=== PATIENT | female | born 1950 | race Caucasian/White ===

== ENCOUNTER 2020-04-28 20:42 | Inpatient (IN) | payer MEDICARE, SELFPAY ==
--- NOTE | 2020-04-28 20:48 | ECG_ITS ---
Test Reason : WEAKNESS Blood Pressure : / mmHG Vent. Rate : 078 BPM Atrial Rate : 078 BPM P-R Int : 188 ms QRS Dur : 100 ms QT Int : 412 ms P-R-T Axes : 057 021 054 degrees QTc Int : 469 ms Normal sinus rhythm Intra-ventricular conduction delay Nonspecific ST abnormality Abnormal ECG When compared with ECG of 06-DEC-2014 09:25, No significant change was found Referred By: Ritu Scott Electronically Signed By:KENIA FRANKLIN MD
--- NOTE | 2020-04-28 20:48 | CT_ITS ---
EXAMINATION: CTA NECK WITH CONTRAST (STROKE) CTA BRAIN WITH CONTRAST (STROKE) CLINICAL INFORMATION: Worsening intermittent left hand weakness. COMPARISON: CT head performed earlier same date TECHNIQUE: CTA of the head and neck was performed in the axial plane from the mediastinum to the skull vertex using 70 mL Omnipaque 350 intravenous contrast. Additional reformatted multiplanar images including maximum intensity projection MIP images are generated on the CT workstation. This CT examination was performed using dose optimization techniques as appropriate, variously including the following: *Automated exposure control *Adjustment of mA and/or kV according to patient size (this includes techniques or standardized protocols for targeted exams where dose is matched to indication/reason for exam; i.e. extremities or head) *Use of iterative reconstruction technique DLP: 70c mGy-cm FINDINGS: SOFT TISSUES AND LUNG APICES: No overt abnormality is appreciated. CTA NECK: The aortic arch has a classic configuration and the major arch vessel origins are non-stenotic. The vertebral arteries are co-dominant and both vertebral origins are widely patent. Both common carotid arteries are normal in course and caliber. Both internal carotid arteries demonstrate mild atherosclerotic plaque, worse on the right, without hemodynamically significant stenosis. CTA HEAD: There is normal opacification of the major intracranial vessels. No acute proximal large vessel occlusion, focal flow-limiting stenosis, or saccular intracranial aneurysm is identified. The basilar artery opacifies but is diminutive. Right P1 segment is absent, and the left P1 segment is diminutive. origins of the bilateral posterior cerebral arteries. No abnormal parenchymal enhancement or regional oligemia is visualized. HEAD (delayed): No intracranial mass, intercerebral edema, hemorrhage, or midline shift is evident. The ventricles and sulci are stable in size and configuration. No extra-axial collections are appreciated. [id number] chronic white matter small vessel ischemic changes. No pathologic intracranial enhancement. The paranasal sinuses are well-aerated and clear. CT/CT angio head neck stroke IMPRESSION: CTA NECK: Mild atherosclerotic disease of the bilateral carotid bifurcations without hemodynamically significant stenosis or dissection. CTA HEAD: No hemodynamically significant stenosis or large vessel occlusion. Developmentally diminutive posterior circulation with origins of the bilateral posterior cerebral arteries. This critical result was discussed with Ritu Scott M.D. at 9:30 PM on 04/28/2020c and it was ascertained that the content and urgency of the report was understood at the time of direct communication.
--- NOTE | 2020-04-28 20:48 | CT_ITS ---
EXAMINATION: CT HEAD WITHOUT CONTRAST (STROKE PROTOCOL) CLINICAL INFORMATION: Stroke protocol. COMPARISON: CT head 12/06/2014 TECHNIQUE: Contiguous axial imaging was performed from the skull base to vertex without intravenous administration of contrast. This CT examination was performed using dose optimization techniques as appropriate, variously including the following: *Automated exposure control *Adjustment of mA and/or kV according to patient size (this includes techniques or standardized protocols for targeted exams where dose is matched to indication/reason for exam; i.e. extremities or head) *Use of iterative reconstruction technique DLP: 646 mGy-cm FINDINGS: There is no intracranial hemorrhage, hematoma, or extra-axial fluid collection. The ventricles are normal in size. There is no hydrocephalus, edema, or mass effect. The guillen-white matter differentiation appears symmetric. There is no acute infarct or mass lesion. The visualized sinuses and middle ears and mastoid air cells show no significant mucosal thickening. There are no air-fluid levels. CT/CT head for stroke IMPRESSION: No acute intracranial pathology. This critical result was discussed with Yanick JUNIOR on 04/28/2020, 9:08 PM. It was ascertained that the content and urgency of the report was understood at the time of direct communication.
[2020-04-28 21:00] LABS: ~PT, ~INR - Anti Coag Clinic 4.9 (0.9-1.1)
[2020-04-28 21:00] LABS: Glucose, Whole Blood 100 mg/dL (60-115)
[2020-04-28] MEDS: iohexoL 350 MG/ML 100 ML INFUS..BTL IV (21:08)
[2020-04-28 21:14] LABS: MANUAL DIFF FLAG NO
[2020-04-28 21:16] LABS: Basophils Percent Auto 0.8 % (0-2); Hematocrit 39.2 % (37-47); Hemoglobin 12.6 g/dl (12.0-16.0); Imm Gran Abs Auto 0.01 X10*3/uL (0.00-0.03); Imm Gran Pct Auto 0.2 % (0.0-0.4); Lymphocytes Percent Auto 37.7 % (20-40); Mean Corpuscular HGB Conc 32.1 g/dl (31.0-35.0); Mean Corpuscular Hemoglobin 28.4 pg (27.0-33.0); Mean Corpuscular Volume 88.5 fL (80-98); Mean Platelet Volume 10.8 fL (9.4-12.3); Monocytes Absolute Auto 0.4 X10*3/uL (0.1-1.2); Monocytes Percent Auto 7.9 % (2-11); Neutrophils Absolute Auto 2.8 X10*3/uL (2.0-8.3); Neutrophils Percent Auto 53.4 % (45-73); Platelet Count 241 X10*3/uL (160-400); Red Blood Count 4.43 X10*6/uL (4.20-5.50); Red Cell Distribution Width 14.4 % (11.0-16.0); White Blood Count 5.3 X10*3/uL (4.8-10.8)
[2020-04-28 21:19] VITALS: BP 170/55; PULSE 86; RESP 16; TEMP 35.6; O2SAT 100; BMI 33.3
[2020-04-28 21:23] LABS: INTERNATIONAL NORM RATIO 4.2 (0.9-1.1); Prothrombin Time 50.7 SEC (10.8-13.0)
[2020-04-28 21:29] LABS: Stroke Lab Use COMPLETE
--- NOTE | 2020-04-28 21:32 | PC.NURSE ---
PATIENT REPORT ON COUMADIN, DR LANZA AWARE. REPORTS BILATERAL LOWER LEG EDEMA 1+, PATIENT REPORTS IT IS AT HER BASELINE.
[2020-04-28 21:42] LABS: Anion Gap 12 (12-20); Blood Urea Nitrogen 21 mg/dL (9-16); Calcium 8.7 mg/dL (8.4-10.2); Carbon Dioxide 27 mmol/L (22-29); Chloride 102 mmol/L (96-108); Creatinine Clr Calc Pharmacy 44.6; Estimated Glomerular Filt Rate 38; Glucose Random 95 mg/dL (60-115); Potassium 3.3 mmol/l (3.3-5.1); Sodium 138 mmol/L (135-145)
[2020-04-28 21:48] LABS: Troponin-I High Sensitivity 6.5 ng/L (<3.5-17.0)
--- NOTE | 2020-04-28 21:52 | ED.NEUROSD ---
HPI - Neuro Symptoms/Deficit General Chief Complaint: Stroke Stated Complaint: ?stroke Time Seen by Provider: 04/28/20 20:47 Source: patient, family and EMS Mode of arrival: EMS Limitations: no limitations History of Present Illness HPI Narrative: Patient comes to emergency room complaining of multiple episodes of neurological deficits including unable to move her right arm, slurry speech. Patient states she feels fine and wants to go home. I spoke with the patient's daughter, the daughter states that the patient has had TIAs in the past, over the last month and a half the patient has had multiple episodes of TIA where she loses strength in the right side of her body or has slurry speech or small episodes of altered mental status. This morning, around 8 in the morning patient could not move her right arm, she had to grab her right arm with her left hand to make it move. Patient also had severe slurry speech. The family reports that this has been intermittent since 08:00 a.m. at this time, patient states that she is able to move her right arm, seems unconcerned. The family states that all of the symptoms have gradually been getting worse over the last 6 weeks, patient is known to have carotid artery stenosis, the patient states she sees Dr. Fulton, the last time she was told that her stenosis is at 65%. patient is on Coumadin for previous TIAs and also for the carotid artery stenosis. Related Data Allergies Allergy/AdvReac Type Severity Reaction Status Date / Time No Known Allergies Allergy Verified 04/28/20 21:23 [No Known Allergies*] Review of Systems Review of Systems: Constitutional : No Weight loss, No Fever, No Chills, No Night Sweats, No Fatigue, No Malaise ENT/Mouth : No Hearing loss, No Ear Pain, No Nasal Congestion, No Sinus Pain, No Hoarseness, No sore throat, No Rhinorrhea, No Swallowing Difficulty Eyes: No Eye Pain, No Swelling, No Redness, No Foreign Body, No Discharge, No Vision Changes Cardiovascular : No Chest Pain, No SOB, No Dyspnea on Exertion, No Orthopnea, No Edema, No Palpitations Respiratory : No Cough, No Sputum, No Wheezing, No Smoke Exposure, No Dyspnea Gastrointestinal : No Nausea, No Vomiting, No Diarrhea, No Constipation, No abdominal Pain, No Hematochezia, No Melena Genitourinary : no irregular bleeding, No Dysuria, No Urinary Frequency, No Hematuria, No Urinary Incontinence, No Urgency, No Flank Pain, No Urinary Flow Changes, No Hesitancy Musculoskeletal : No joint pain, No Myalgias, No Joint Swelling Skin : No Skin Lesions, No rash Neuro : Intermittent episodes of unable to move the right arm, losing complete strength in the right upper arm, intermittent episodes of unsteady gait, continue see tripping with no falling. Mouth drooping Psych : No Anxiety/Panic, No Depression, No SI/HI/AH/VH, No Social Issues, Heme/Lymph: No Bruising, No Bleeding,No Lymphadenopathy Endocrine : No Polyuria, No Polydipsia, No Temperature Intolerance [facility] Past Medical History Medical History (Updated 04/28/20 @ 22:08 by Ritu Scott MD) History of TIAs Hypothyroidism Surgical History (Updated 04/28/20 @ 21:22 by Nazia Raphael) Hx of bladder repair surgery Social History Social History Alcohol intake: never Smoking Status: Never smoker Use of substances other than those prescribed or required for medical reasons: No Advance Directives: No Advance Directives Information Provided: Yes Physical Exam Vital Signs: Vital Signs: Last Vital Signs Temp 97.7 F 04/28/20 23:17 Pulse 74 04/28/20 23:17 Resp 14 04/28/20 23:17 BP 163/70 H 04/28/20 23:17 Pulse Ox 98 04/28/20 23:17 Body Mass Index 33.3 Appearance: Alert. Oriented X3. No acute distress. Eyes: Pupils equal, round and reactive to light. ENT: Pharynx normal. no mouth drooping Neck: Normal inspection. Neck supple. No lymph nodes noted. No crepitus CVS: Normal heart rate and rhythm. Pulses normal. Normal S1 and S2 Respiratory: No respiratory distress. Breath sounds normal. No Wheezing. No rales Abdomen: Soft and nontender. No rigidity. No distention. good BS x4 Skin: Skin warm and dry. Normal skin color. Normal skin turgor. Extremities: No lower extremity edema. No lower extremity edema. No Lacerations. No Rash Neuro: Oriented X 3. No motor deficit. No sensory deficit. Moving all extermities. No slurred speech. patient has normal strength 5/5 in upper and lower extremities, no pronator drift, no mouth drooping, cranial nerves 2-12 intact Course Course Course Narrative: patient's CT and CTA of head and neck do not show any acute stroke or large vessel occlusion. Patient is currently on Coumadin, INR is 4.9 patient would not be a candidate for tPA. At this time, patient is asymptomatic. I discussed the patient with our hospitalist, patient will be admitted for TIAs MDM - Neuro Symptoms/Deficit Lab Data Result diagrams: 04/28/20 21:08 04/28/20 21:08 Labs: Lab Results 04/28/20 04/28/20 04/28/20 Range/Units 20:54 20:56 21:08 WBC 5.3 (4.8-10.8) X10*3/uL RBC 4.43 (4.20-5.50) X10*6/uL Hgb 12.6 (12.0-16.0) g/dl Hct 39.2 (37-47) % MCV 88.5 (80-98) fL MCH 28.4 (27.0-33.0) pg MCHC 32.1 (31.0-35.0) g/dl RDW 14.4 (11.0-16.0) % Plt Count 241 (160-400) X10*3/uL MPV 10.8 (9.4-12.3) fL Immature Gran % (Auto) 0.2 (0.0-0.4) % Neut % (Auto) 53.4 (45-73) % Lymph % (Auto) 37.7 (20-40) % [place] % (Auto) 7.9 (2-11) % Eos % (Auto) 0.0 (0-4) % Baso % (Auto) 0.8 (0-2) % Lymph # (Auto) 2.0 (1.2-4.9) X10*3/uL [place] # (Auto) 0.4 (0.1-1.2) X10*3/uL Eos # (Auto) 0.0 (0.0-0.4) X10*3/uL Baso # (Auto) 0.0 (0.0-0.2) X10*3/uL Abs Immat Gran (auto) 0.01 (0.00-0.03) X10*3/uL Absolute Neuts (auto) 2.8 (2.0-8.3) X10*3/uL Absolute Nucleated RBC 0.000 (0.0-0.012) X10*3/uL Nucleated RBC % (auto) 0.0 (0.0-0.2) /100WBC PT (10.8-13.0) SEC Whole Blood PT 59.0 H (11.1-13.5) sec INR (0.9-1.1) Whole Blood INR 4.9 H (0.9-1.1) APTT (24.1-38.0) SEC Sodium (135-145) mmol/L Potassium (3.3-5.1) mmol/l Chloride (96-108) mmol/L Carbon Dioxide (22-29) mmol/L Anion Gap (12-20) BUN (9-16) mg/dL Creatinine (0.5-1.4) mg/dL Estim Creat Clear Calc Estimated GFR POC Glucose 100 (60-115) mg/dL Random Glucose (60-115) mg/dL Calcium (8.4-10.2) mg/dL Total Creatine Kinase (26-140) U/L Troponin I High Sens (<3.5-17.0) ng/L Coronavirus (PCR) (Negative) 04/28/20 04/28/20 04/28/20 Range/Units 21:08 21:08 21:08 WBC (4.8-10.8) X10*3/uL RBC (4.20-5.50) X10*6/uL Hgb (12.0-16.0) g/dl Hct (37-47) % MCV (80-98) fL MCH (27.0-33.0) pg MCHC (31.0-35.0) g/dl RDW (11.0-16.0) % Plt Count (160-400) X10*3/uL MPV (9.4-12.3) fL Immature Gran % (Auto) (0.0-0.4) % Neut % (Auto) (45-73) % Lymph % (Auto) (20-40) % [place] % (Auto) (2-11) % Eos % (Auto) (0-4) % Baso % (Auto) (0-2) % Lymph # (Auto) (1.2-4.9) X10*3/uL [place] # (Auto) (0.1-1.2) X10*3/uL Eos # (Auto) (0.0-0.4) X10*3/uL Baso # (Auto) (0.0-0.2) X10*3/uL Abs Immat Gran (auto) (0.00-0.03) X10*3/uL Absolute Neuts (auto) (2.0-8.3) X10*3/uL Absolute Nucleated RBC (0.0-0.012) X10*3/uL Nucleated RBC % (auto) (0.0-0.2) /100WBC PT 50.7 H (10.8-13.0) SEC Whole Blood PT (11.1-13.5) sec INR 4.2 H (0.9-1.1) Whole Blood INR (0.9-1.1) APTT 63.0 H* (24.1-38.0) SEC Sodium 138 (135-145) mmol/L Potassium 3.3 (3.3-5.1) mmol/l Chloride 102 (96-108) mmol/L Carbon Dioxide 27 (22-29) mmol/L Anion Gap 12 (12-20) BUN 21 H (9-16) mg/dL Creatinine 1.39 (0.5-1.4) mg/dL Estim Creat Clear Calc 44.6 Estimated GFR 38 POC Glucose (60-115) mg/dL Random Glucose 95 (60-115) mg/dL Calcium 8.7 (8.4-10.2) mg/dL Total Creatine Kinase 73 (26-140) U/L Troponin I High Sens 6.5 (<3.5-17.0) ng/L Coronavirus (PCR) (Negative) 04/28/20 Range/Units 21:58 WBC (4.8-10.8) X10*3/uL RBC (4.20-5.50) X10*6/uL Hgb (12.0-16.0) g/dl Hct (37-47) % MCV (80-98) fL MCH (27.0-33.0) pg MCHC (31.0-35.0) g/dl RDW (11.0-16.0) % Plt Count (160-400) X10*3/uL MPV (9.4-12.3) fL Immature Gran % (Auto) (0.0-0.4) % Neut % (Auto) (45-73) % Lymph % (Auto) (20-40) % [place] % (Auto) (2-11) % Eos % (Auto) (0-4) % Baso % (Auto) (0-2) % Lymph # (Auto) (1.2-4.9) X10*3/uL [place] # (Auto) (0.1-1.2) X10*3/uL Eos # (Auto) (0.0-0.4) X10*3/uL Baso # (Auto) (0.0-0.2) X10*3/uL Abs Immat Gran (auto) (0.00-0.03) X10*3/uL Absolute Neuts (auto) (2.0-8.3) X10*3/uL Absolute Nucleated RBC (0.0-0.012) X10*3/uL Nucleated RBC % (auto) (0.0-0.2) /100WBC PT (10.8-13.0) SEC Whole Blood PT (11.1-13.5) sec INR (0.9-1.1) Whole Blood INR (0.9-1.1) APTT (24.1-38.0) SEC Sodium (135-145) mmol/L Potassium (3.3-5.1) mmol/l Chloride (96-108) mmol/L Carbon Dioxide (22-29) mmol/L Anion Gap (12-20) BUN (9-16) mg/dL Creatinine (0.5-1.4) mg/dL Estim Creat Clear Calc Estimated GFR POC Glucose (60-115) mg/dL Random Glucose (60-115) mg/dL Calcium (8.4-10.2) mg/dL Total Creatine Kinase (26-140) U/L Troponin I High Sens (<3.5-17.0) ng/L Coronavirus (PCR) NEGATIVE (Negative) Imaging Data CT head and neck: Radiologist's impression: There is no intracranial hemorrhage, hematoma, or extra-axial fluid collection. The ventricles are normal in size. There is no hydrocephalus, edema, or mass effect. The guillen-white matter differentiation appears symmetric. There is no acute infarct or mass lesion. The visualized sinuses and middle ears and mastoid air cells show no significant mucosal thickening. There are no air-fluid levels. CT/CT head for stroke IMPRESSION: No acute intracranial pathology. CTA NECK: The aortic arch has a classic configuration and the major arch vessel origins are non-stenotic. The vertebral arteries are co-dominant and both vertebral origins are widely patent. Both common carotid arteries are normal in course and caliber. Both internal carotid arteries demonstrate mild atherosclerotic plaque, worse on the right, without hemodynamically significant stenosis. CTA HEAD: There is normal opacification of the major intracranial vessels. No acute proximal large vessel occlusion, focal flow-limiting stenosis, or saccular intracranial aneurysm is identified. The basilar artery opacifies but is diminutive. Right P1 segment is absent, and the left P1 segment is diminutive. origins of the bilateral posterior cerebral arteries. No abnormal parenchymal enhancement or regional oligemia is visualized. HEAD (delayed): No intracranial mass, intercerebral edema, hemorrhage, or midline shift is evident. The ventricles and sulci are stable in size and configuration. No extra-axial collections are appreciated. [id number] chronic white matter small vessel ischemic changes. No pathologic intracranial enhancement. The paranasal sinuses are well-aerated and clear. ECG Data Attestation: I personally reviewed and interpreted this ECG as follows: ( sinus rhythm, heart rate 78, no ST segment depressions or elevations, nonspecific T-wave abnormalities.) NIH Stroke Scale Level of Consciousness: Alert Level of Consciousness Questions: Answers both questions correctly Level of Consciousness Commands: Performs both tasks correctly Best Gaze: Normal Visual: No visual loss Facial Palsy: Normal Motor Arm (Right): Some effort against gravity Motor Arm (Left): No drift Motor Leg (Right): No drift Motor Leg (Left): No drift Limb Ataxia: Absent Sensory: Normal Best Language: No aphasia Dysarthia: Normal Extinction and Inattention: No abnormality Score: 2 Discharge Plan Discharge Clinical Impression: Transient cerebral ischemia Qualifiers: Transient cerebral ischemia type: other Qualified Code(s): G45.8 - Other transient cerebral ischemic attacks and related syndromes Patient Disposition: Admitted As Inpatient
[2020-04-28 22:00] VITALS: BP 153/64; PULSE 75; RESP 18; TEMP 36.6; O2SAT 98
--- NOTE | 2020-04-28 22:31 | PM.IMHP ---
History of Present Illness Date of Service: 04/28/20 Chief Complaint: arm weakness, TIA This is a 69-year-old female with past medical history of TIA as well as hyperactive bladder who presents to the hospital with complaints of right-sided weakness. Patient reports that the symptoms started around 8:00 a.m., and or intermittent with episodes happening 3-4 times during the day. She reports she had difficulty lifting her right arm, and holding her cane with the right arm. She also felt drooling on the right side. Had no lower extremity weakness. Patient reports that symptoms would last for couple hours start improving slowly but then returned again. Reports that her arm is stronger at this time. She denies any headache, change in vision, no chest pain or shortness of breath, no abdominal pain nausea or vomiting, no diarrhea or constipation. No urinary symptoms and no new lower extremity edema. She has chronic lower extremity edema associated with venous insufficiency. According to the daughter who give this report to the ED physician, her mother has been experiencing mini strokes for the past 6 weeks but has been refusing to come to the ED. On arrival to the ED hemodynamically stable with no significant abnormal vitals except for an elevated blood pressure 170/55 Labs are significant for INR 4.2, otherwise unremarkable. CT angiogram of the neck shows mild atherosclerotic disease of the bilateral carotid bifurcation without hemodynamically significant stenosis or dissection, CTA of the head shows no hemodynamically significant stenosis or large vessel occlusion. Past medical history: CVA, hyperactive bladder, hypothyroidism Surgical history: Bladder prolapse Family history of COPD, diabetes Social history: Comes from home, lives in a unit on the 1st floor with her daughter, denies tobacco alcohol or illicit drugs Review of Systems Review of Systems: Yes all other systems are reviewed and are negative [facility] Medical History (Updated 04/29/20 @ 04:48 by Jim Hayes MD) History of TIAs Hypothyroidism Surgical History (Updated 04/28/20 @ 21:22 by Nazia Raphael) Hx of bladder repair surgery Social History Household Members: None Housing: House Do you presently have visiting nurse or other home services: No Alcohol intake: never Smoking Status: Never smoker Use of substances other than those prescribed or required for medical reasons: No Advance Directives: No Advance Directives Information Provided: Yes Meds Allergies Allergy/AdvReac Type Severity Reaction Status Date / Time No Known Allergies Allergy Verified 04/28/20 21:23 [No Known Allergies*] Home Medications Medication Instructions Recorded Confirmed Type aspirin 81 mg PO DAILY 04/28/20 04/28/20 History furosemide 1 tab PO BID 04/28/20 04/28/20 History levothyroxine 1 tab PO DAILY 04/28/20 04/28/20 History trospium 1 cap PO QAM 04/28/20 04/28/20 History warfarin 1 - 2 tab PO DAILY 04/28/20 04/28/20 History Physical Exam Vital Signs and Narrative: Vital Signs: Last Vital Signs Temp 96.0 F L 04/28/20 21:19 Pulse 86 04/28/20 21:19 Resp 16 04/28/20 21:19 BP 170/55 H 04/28/20 21:19 Pulse Ox 100 04/28/20 21:19 Body Mass Index 33.3 Const: General: cooperative and no acute distress Orientation/consciousness: patient oriented x3 Eyes: Other: proptosis Pupils: Equal, round and reactive pupils present Resp: Effort & Inspection: normal respiratory effort and able to speak in complete sentences Auscultation: clear to auscultation bilaterally Cardio: Rate: regular rate Rhythm: regular rhythm GI: Palpation (GI): Soft to palpation Auscultation: normal bowel sounds Skin: General skin exam: no rashes or lesions noted Neuro: Other: 2/5 strength in the right upper extremity, 4/5 in the lower extremity, left extremity has strength 5/5, no facial drooping, asymmetry, General: patient oriented x3 Cranial nerves: Yes Equal, round and reactive pupils present Cognition (Neuro): normal cognition Extrem: General: Yes normal to inspection and Yes no pedal edema Results Labs CBC and Chem 7: 04/29/20 01:10 04/29/20 01:10 Labs: Laboratory Results - last 24 hr 04/28/20 04/28/20 04/28/20 20:54 20:56 21:08 MCV 88.5 MCH 28.4 MCHC 32.1 RDW 14.4 Plt Count 241 MPV 10.8 Immature Gran % (Auto) 0.2 Neut % (Auto) 53.4 Lymph % (Auto) 37.7 [place] % (Auto) 7.9 Eos % (Auto) 0.0 Baso % (Auto) 0.8 Lymph # (Auto) 2.0 [place] # (Auto) 0.4 Eos # (Auto) 0.0 Baso # (Auto) 0.0 Abs Immat Gran (auto) 0.01 Absolute Neuts (auto) 2.8 Absolute Nucleated RBC 0.000 Nucleated RBC % (auto) 0.0 PT Whole Blood PT 59.0 H INR Whole Blood INR 4.9 H APTT Anion Gap Estim Creat Clear Calc Estimated GFR POC Glucose 100 Random Glucose Calcium Total Creatine Kinase Troponin I High Sens 04/28/20 04/28/20 04/28/20 21:08 21:08 21:08 MCV MCH MCHC RDW Plt Count MPV Immature Gran % (Auto) Neut % (Auto) Lymph % (Auto) [place] % (Auto) Eos % (Auto) Baso % (Auto) Lymph # (Auto) [place] # (Auto) Eos # (Auto) Baso # (Auto) Abs Immat Gran (auto) Absolute Neuts (auto) Absolute Nucleated RBC Nucleated RBC % (auto) PT 50.7 H Whole Blood PT INR 4.2 H Whole Blood INR APTT 63.0 H* Anion Gap 12 Estim Creat Clear Calc 44.6 Estimated GFR 38 POC Glucose Random Glucose 95 Calcium 8.7 Total Creatine Kinase 73 Troponin I High Sens 6.5 Imaging Radiologist's Impressions: Impressions Head CT 04/28/20 20:48 IMPRESSION: No acute intracranial pathology. This critical result was discussed with Yanick JUNIOR on 04/28/2020, 9:08 PM. It was ascertained that the content and urgency of the report was understood at the time of direct communication. Head/Neck CTA 04/28/20 20:48 IMPRESSION: CTA NECK: Mild atherosclerotic disease of the bilateral carotid bifurcations without hemodynamically significant stenosis or dissection. CTA HEAD: No hemodynamically significant stenosis or large vessel occlusion. Developmentally diminutive posterior circulation with origins of the bilateral posterior cerebral arteries. This critical result was discussed with Ritu Scott M.D. at 9:30 PM on 04/28/2020c and it was ascertained that the content and urgency of the report was understood at the time of direct communication. Assessment and Plan (1) Hyperactivity of bladder: Status: Acute (2) Transient cerebral ischemia: Qualifiers: Transient cerebral ischemia type: other Qualified Code(s): G45.8 - Other transient cerebral ischemic attacks and related syndromes Status: Acute (3) Hypothyroidism: Status: Acute (4) Supratherapeutic INR: Status: Acute this is a 69-year-old female with past medical history of TIA who presents to the hospital with Stroke like symptoms. # CVA - has history of recurrent CVA, and reported 65% right carotid artery occlusion. - CT angiogram shows no evidence of large vessel occlusion, in the neck or the head - CT head negative - did not receive tPA due to elevated INR plan: - Will switch her simvastatin to high intensity statin , atorvastatin 80 mg - continue aspirin - stroke precaution, swallow precaution - brain MRI - neurology consult # supratherapeutic INR - INR 4.2, with no bleed - patient on INR for history of recurrent CVA - follow PT INR daily, resume when INR less than 3 # hypothyroidism - continue levothyroxine - patient has mild proptosis, will check for TSH level DVT prophylaxis: INR supratherapeutic, warfarin
--- NOTE | 2020-04-28 22:31 | PC.NURSE ---
patient a&ox3, no c/o pain or discomfort, surveillance monitor, [id number], vss, will continue to monitor
--- NOTE | 2020-04-28 22:35 | PC.NURSE ---
swallow eval completed, pt passed
[2020-04-28 22:58] LABS: SARS COV2 PCR INHOUSE NEGATIVE (Negative)
--- NOTE | 2020-04-28 23:00 | PC.NURSE ---
hospitalist at bedside for eval
[2020-04-28 23:17] VITALS: BP 163/70; PULSE 74; RESP 14; TEMP 36.5; O2SAT 98
--- NOTE | 2020-04-28 23:28 | PC.NURSE ---
Med Rec completed at bedside with pt. Awaiting transport to floor.
--- NOTE | 2020-04-28 23:33 | PC.NURSE ---
This RN calling IMC to give report, [facility] unable to take report at this time.
--- NOTE | 2020-04-28 23:42 | PC.NURSE ---
Report given to [facility] RN.
[2020-04-29 00:57] VITALS: BP 150/70; PULSE 76; RESP 20; TEMP 36.6; O2SAT 100
[2020-04-29 01:17] LABS: Basophils Absolute Auto 0.1 X10*3/uL (0.0-0.2); Basophils Percent Auto 0.8 % (0-2); Hematocrit 39.7 % (37-47); Hemoglobin 12.7 g/dl (12.0-16.0); Imm Gran Abs Auto 0.01 X10*3/uL (0.00-0.03); Imm Gran Pct Auto 0.2 % (0.0-0.4); Lymphocytes Absolute Auto 1.9 X10*3/uL (1.2-4.9); Lymphocytes Percent Auto 32.6 % (20-40); MANUAL DIFF FLAG NO; Mean Corpuscular Hemoglobin 28.4 pg (27.0-33.0); Mean Corpuscular Volume 88.8 fL (80-98); Mean Platelet Volume 10.3 fL (9.4-12.3); Monocytes Absolute Auto 0.5 X10*3/uL (0.1-1.2); Monocytes Percent Auto 8.1 % (2-11); Neutrophils Absolute Auto 3.5 X10*3/uL (2.0-8.3); Neutrophils Percent Auto 58.3 % (45-73); Platelet Count 215 X10*3/uL (160-400); Red Blood Count 4.47 X10*6/uL (4.20-5.50); Red Cell Distribution Width 14.5 % (11.0-16.0)
[2020-04-29 01:46] LABS: Anion Gap 11 (12-20); Blood Urea Nitrogen 19 mg/dL (9-16); Calcium 8.6 mg/dL (8.4-10.2); Carbon Dioxide 27 mmol/L (22-29); Chloride 103 mmol/L (96-108); Creatinine Clr Calc Pharmacy 50.5; Estimated Glomerular Filt Rate 43; Glucose Random 100 mg/dL (60-115); Potassium 3.4 mmol/l (3.3-5.1); Sodium 138 mmol/L (135-145)
[2020-04-29 03:37] VITALS: BP 159/69; PULSE 72; RESP 20; TEMP 36.7; O2SAT 96
[2020-04-29 05:58] LABS: Thyroid Stimulating Hormone 0.58 uIU/mL (0.32-4.0)
[2020-04-29] MEDS: Levothyroxine Sodium 125 MCG TABLET PO (05:58)
[2020-04-29 06:24] LABS: INTERNATIONAL NORM RATIO 4.2 (0.9-1.1); Prothrombin Time 50.2 SEC (10.8-13.0)
[2020-04-29 07:12] LABS: Glucose, Whole Blood 96 mg/dL (60-115)
[2020-04-29 07:46] VITALS: BP 128/73; PULSE 63; RESP 18; TEMP 36.5; O2SAT 97
--- NOTE | 2020-04-29 08:05 | MR_ITS ---
MRI OF THE BRAIN WITHOUT IV CONTRAST INDICATION: stroke/TIA COMPARISON: CTA head and neck April 28, 2020. TECHNIQUE: Multiplanar multisequence MR imaging of the brain was obtained without IV contrast. FINDINGS: There is a small acute infarct within the left perirolandic region and the high left parasagittal frontal lobe in the left MCA territory. No mass effect and no hemorrhagic transformation. Chronic cortical/subcortical infarcts within the parietal lobes bilaterally, the left temporal occipital lobe, and moderate chronic microangiopathy. There is no hydrocephalus, extra-axial surface collection, or herniation. The major flow voids at the skull base are preserved. There is no intracranial hemorrhage on the gradient recalled echo acquisition. Small foci of susceptibility signal within the periphery of the cerebral hemispheres that may reflect chronic hypertensive petechial microhemorrhages and/or the sequela of amyloid angiopathy. The midline structures are normal. The cerebellar tonsils are normally positioned. Chronic lacunar infarcts within the cerebellar hemispheres bilaterally. The craniocervical junction is normal. Osseous marrow signal intensity is homogenous. The visualized soft tissues are unremarkable. MR/MR head/brain wo con IMPRESSION: - There is a small acute infarct within the left perirolandic region and the high left parasagittal frontal lobe in the left MCA territory. No mass effect and no hemorrhagic transformation. - Chronic cortical/subcortical infarcts within the parietal lobes bilaterally, the left temporal occipital lobe, and moderate chronic microangiopathy. Chronic lacunar infarcts within the cerebellar hemispheres bilaterally. - Small foci of susceptibility signal within the periphery of the cerebral hemispheres that may reflect chronic hypertensive petechial microhemorrhages and/or the sequela of amyloid angiopathy.
[2020-04-29] MEDS: Aspirin 81 MG TAB.CHEW PO (09:20)
[2020-04-29] MEDS: Atorvastatin Calcium 80 MG TABLET PO (09:20)
[2020-04-29] MEDS: Furosemide 20 MG TABLET PO ×2 (09:21→20:57)
--- NOTE | 2020-04-29 09:53 | P.CNNE_ITS ---
History of Present Illness Data of Consult Primary Care Provider: Unknown Physician 69 years old woman who came to hospital yesterday with right-sided weakness. He told me this morning that he woke up fine yesterday morning and at about 08:00 she noticed that her right hand was weak and was not doing what it was supposed to do. She denied any problem with her speech. When I reviewed previous notes, she had complained of right-sided weakness and numbness and slurring of speech. Family also had reported that she had intermittent symptoms for many days. There was no associated headache. There was no complaint of pain or trauma. Review of Systems Review of Systems: No recent cold or flu-like illness, trauma, seizure-like episode or exposure to new medicine. [facility] Past Medical History Medical History (Updated 04/29/20 @ 10:18 by Babar Mckinney MD) History of TIAs Hypothyroidism Surgical History Surgical History (Updated 04/28/20 @ 21:22 by Nazia Raphael) Hx of bladder repair surgery Social History Social History Household Members: None Housing: House Do you presently have visiting nurse or other home services: No Alcohol intake: never Smoking Status: Never smoker Use of substances other than those prescribed or required for medical reasons: No Currently Displaying Signs/Symptoms of Drug Intoxication Withdrawal: No Advance Directives: No Advance Directives Information Provided: Yes Do you have thoughts of harming others: None Do you have a plan to hurt others: No Plan Meds Allergies Allergy/AdvReac Type Severity Reaction Status Date / Time No Known Allergies Allergy Verified 04/28/20 21:23 [No Known Allergies*] Home Medications Medication Instructions Recorded Confirmed Type aspirin 81 mg PO DAILY 04/28/20 04/28/20 History furosemide 1 tab PO BID 04/28/20 04/28/20 History levothyroxine 1 tab PO DAILY 04/28/20 04/28/20 History trospium 1 cap PO QAM 04/28/20 04/28/20 History warfarin 1 - 2 tab PO DAILY 04/28/20 04/28/20 History Physical Exam Vital Signs: Vital Signs: Last Vital Signs Temp 97.7 F 04/29/20 07:46 Pulse 63 04/29/20 07:46 Resp 18 04/29/20 07:46 BP 128/73 04/29/20 07:46 Pulse Ox 97 04/29/20 07:46 Body Mass Index 33.3 She was alert awake with normal spontaneity of speech fluency comprehension and affect. Pupils were round reactive to light and extraocular muscles were intact. Visual cervantes are full to confrontation. There was mild left-sided facial flatness with mild left-sided ptosis. External ocular muscles are intact. Hearing was slightly decreased on bedside conversation. There was no pronator drift. Fine finger movements were intact. Arthritic changes were noted in hands. Deep tendon reflexes were absent. There was significant edema in legs with areflexia and flexor plantars. There was no visual or spatial neglect. Results Labs CBC & Chem 7: 04/29/20 01:10 04/29/20 01:10 Labs: Short CBC 04/28/20 04/29/20 Range/Units 21:08 01:10 WBC 5.3 6.0 (4.8-10.8) X10*3/uL Hgb 12.6 12.7 (12.0-16.0) g/dl Hct 39.2 39.7 (37-47) % Plt Count 241 215 (160-400) X10*3/uL BMP 04/28/20 04/29/20 21:08 01:10 Sodium 138 138 Potassium 3.3 3.4 Chloride 102 103 Carbon Dioxide 27 27 BUN 21 H 19 H Creatinine 1.39 1.23 Calcium 8.7 8.6 Cardiac Enzymes 04/28/20 Range/Units 21:08 Total Creatine Kinase 73 (26-140) U/L her noncontrast head CT revealed a chronic right frontal periventricular ischemic infarct and mild microvascular ischemic changes type of pattern. An MRI of brain revealed an acute embolic looking left rolandic ischemic infarction and the previous infarctions noted on CAT scan. CTA of brain and neck did not reveal any significant stenosis. Assessment and Plan (1) Stroke: Problem details: Embolic cerebral infarct Status: Acute 69 years old woman with somewhat unclear history but acute onset of right hand and arm weakness from a small left hemispheric cortical embolic looking infarct. Her INR was high because of which she could not have gotten intravenous tPA type of treatment. There was no vascular lesion to intervene either. She was back to baseline. My recommendation at this time is to consider adding a baby aspirin daily in her regimen. Otherwise likely cause of embolism was cardiac source, which was already taken care of. As for his any other reason for stroke including possibility of vasculitis or men ingoencephalitis, she did not complain of any headache and mental status was not suggestive. I would suggest obtaining sed rate, antinuclear antibody titer, RPR, immunofixation, and Lyme serology.
--- NOTE | 2020-04-29 10:00 | CA_ITS ---
Transthoracic Echocardiogram Patient (Last, First, Middle): Zahraa Sutton L Gender: Female Date of : 1950 Age: 69 Procedure Date: 04/29/2020 Procedure Type: Transthoracic Echocardiogram Location: [facility] Height: 167.64 cm Weight: 93.44 kg BSA: 2.03 m2 Heart Rate: bpm BP: 159 / 69 mmHg Passenger Relations Representative: VAMSI Referring MD: Jim Hayes MD Crown Attacher: Yoni Gordon MD Symptoms: TIA Study Quality: Technically Difficult ECG Rhythm: Sinus Conclusions: - 1. Normal LV systolic function with grade 1 diastolic dysfunction 2. Normal cardiac valvular Doppler 3. Normal RV systolic pressure 4. No gross pericardial effusion Findings Procedure Information Contrast agent, definity, is being given per protocol without apparent complications. Left Ventricle Normal left ventricular size, thickness, and systolic function. The visually estimated ejection fraction is between 60-65%. Spectral Doppler is indicative of an impaired relaxation filling pattern. E/E prime ratio is <8, consistent with normal filling pressures. Evidence suggests grade I (mild) diastolic dysfunction. There is mild septal asymmetric hypertrophy. Right Ventricle Normal right ventricular cavity size and systolic function. Atria The left atrium is likely dilated. Interatrial shunt cannot be excluded. The right atrium was not well visualized. Aortic Valve The aortic valve was not well visualized. There is mild calcification of the aortic valve. There is no aortic valve stenosis. There is no aortic valve regurgitation. Mitral Valve The mitral valve was not well visualized. There is trace mitral valve regurgitation. There is no mitral valve stenosis. Pulmonic Valve The pulmonic valve was not well visualized. Tricuspid Valve The tricuspid valve was not well visualized. There is trace tricuspid valve regurgitation. The right ventricular systolic pressure is normal. The right ventricular systolic pressure is 23 mmHg. There is no evidence of pulmonary hypertension. Great Vessels All visible segments of the aorta are normal in size. The pulmonary artery was not well visualized. Venous The inferior vena cava is normal in size and collapses greater than 50% with inspiration. Pericardium/Pleural There is no evidence of pericardial effusion. Prior Study Comparison No prior study available for comparison. Recommendations, Care & Conclusions Recommend contrast study to evaluate intracardiac shunting. Measurements 2D Linear Measurements IVSd: 1.88 0.6-0.9/0.6-1.0 cm LVIDd: 4.47 3.9-5.3/4.2-5.9 cm LVIDd Index: 2.20 2.4-3.2/2.2-3.1 cm/m2 LVIDs: 3.06 2.0-3.6 cm LVPWd: 1.07 0.7-1.1 cm Ao Root: 2.90 2.1-3.5 cm LA Diam: 3.80 2.7-3.8/3.0-4.0 cm LAIDs Index: 1.87 1.5-2.3 cm/m2 LV Mass: 331.97 67-162/88-224 g LV Mass Index: 163.53 43-95/49-115 g/m2 LVOT Diam: 2.20 3.0+(-)1.3 cm 2D Systolic Function EF 4C: 61.20 >55% EF 2C: 66.50 >55% EF BiP: 63.50 >55% Mitral Valve MV Pk E: 0.42 MV PK A: 0.62 MV Decel Time: 267.00 E/A: 0.70 E'Lateral: 6.19 E'Medial: 5.71 E/E' Med: 7.40 E/E' Lat: 6.80 PHT: 78.00 MVA PHT: 2.82 Decel Seneca: 1.58 Aortic Valve AoV Pk Quentin: 1.24 AoV Pk Grad: 6.00 AI Pk Quentin: 2.71 AI Seneca: 1.83 LVOT LVOT Pk Quentin: 0.70 LVOT Mn Quentin: 0.46 LVOT VTI: 0.16 LVOT Pk Grad: 2.00 LVOT Mn Grad: 1.00 LVOT Diam: 2.20 LVOT Area: 3.80 Diastolic Function MV Pk E: 0.42 MV Pk A: 0.62 E/A: 0.70 E'Medial: 5.71 E/E' Med: 7.40 E' Laterial: 6.19 E/E' Lat: 6.80 Tricuspid Valve TR Pk Quentin: 2.24 TR Pk Grad: 20.00 RA Press: 3.00 RVSP: 23.00 Great Vessels Aorta Ao Root-2D: 2.90 2.0-3.7 cm Ao Asc: 3.50 2.1-3.4 cm Updated in Other Vendor System with Status of Final Yoni Gordon MD electronically signed on 04/29/2020 1:11:02 PM with status of Final
[2020-04-29 11:07] LABS: Glucose, Whole Blood 80 mg/dL (60-115)
[2020-04-29 11:13] VITALS: BP 127/60; PULSE 65; RESP 18; TEMP 36.5; O2SAT 98
--- NOTE | 2020-04-29 12:42 | MHC.STROKE ---
Addendum entered by Cyndee Mosqueda RN 04/30/20 11:22: I MET WITH THE PATIENT AND WE DISCUSSED HER DIAGNOSIS. WE TALKED ABOUT THE LOCATION OF THE STROKE ON HER MRI. WE REVIEWED POWER POINT SLIDES AND DISCUSSED HER CONTRIBUTING RISK FACTORS FOR STROKE. SHE HAS BEEN ON WARFARIN FOR YEARS FOR THE CAROTID DISEASE, SHE HAD A DVT IN THE PAST. SHE CURRENTLY GOES TO [facility] IN [place] FOR HER INR TESTING. SHE WILL HAVE A VISITIN NURSE AND PT AT HOME POST-DISCHARGE. WE DISCUSSED CALLING 911 AT THE FIRST S&S OF A STROKE. SHE WILL FOLLOW UP WITH HER PCP. Original Note: 04/28/202041 ARRIVED WALK-IN. C/O RIGHT ARM WEAKNESS SINCE 0800 ON 04/28/20. NIHSS = 2. INELIGIBLE FOR TPA (ALTEPLASE) DUE TO OUT OF THE WINDOW ARRIVAL GREATER THAN 12 HOURS FROM ONSET AND INR 4.9. PASSED SWALLOW SCREEN TWICE PRIOR TO PO. SEEN BY DR GAGNON THIS AM. + MRI FOR ACUTE STROKE. SHE IS ON WARFARIN POSSIBLE FOR DVT IN 2018 OR THE LEFT CAROTID STENOSIS 50-79% LAST 10/2019. HER STROKE RISK FACTORS INCLUDE HTN, PRIOR STROKE 12/06/14, TIA, CAROTID STENOSIS, OBESITY, DVT. I DO NOT SEE ANY HISTORY OF AFIB. STROKE EDUCATION INITIATED, LIPID PANEL SCHEDULED FOR 04/30/20. SEEN BY PT AND THEY ARE RECOMMENDING HOME PT. I WOULD SUGGEST A RN WELL TO ASSIST WITH INR MONITORING AND MEDICATION COMPLIANCE EDUCATION. I WILL CONTINUE TO FOLLOW.
--- NOTE | 2020-04-29 13:41 | MHC.CM.PN ---
PT REPORTS SHE LIVES ALONE BUT HER DAUGHTER LIVES UPSTAIRS FROM HER. PT REPORTS SHE HAS A CANE SHE USES FOR AMBULATION AND NO OTHER DME. 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 PT REPORTS SHE HAS A HCP COMPLETED NAMING HER SON, LESTER GARCIA HER PRIMARY AND HER SISTER IN LAW JOANN HER SECONDARY PROXY. PT REPORTS SHE GOES TO [place] IN [place] FOR HER PRIMARY CARE AND WAS SEEING KATHRYN HOANG WHO RETIRED. SHE REPORTS SHE CALLED THEM SINCE ADMISSION AND THEY TOLD HER HER NEW PCP WOULD BE PAT GUAN. IMM DELIVERED CURRENT DC PLAN IS HOME WITH NO SERVICES PTS SISTER IN LAW WILL PROVIDE TRANSPORTATION
[2020-04-29 14:56] VITALS: BP 127/61; PULSE 71; RESP 18; TEMP 36.6; O2SAT 95
--- NOTE | 2020-04-29 15:39 | P.PNIM_ITS ---
Subjective Subjective Date of Service: 04/29/20 Interval History: RUE/RLE weakness improved No LORENZO No chest pain Physical Exam Vital Signs: Vital Signs: Last Vital Signs Temp 97.9 F 04/29/20 14:56 Pulse 71 04/29/20 14:56 Resp 18 04/29/20 14:56 BP 127/61 04/29/20 14:56 Pulse Ox 95 04/29/20 14:56 Body Mass Index 33.3 Const: General: no acute distress Eyes: Pupils: Equal, round and reactive pupils present Neck: Neck: Yes normal visual inspection Chest: Chest palpation & inspection: normal inspection of the chest Cardio: Rate: regular rate Rhythm: regular rhythm Heart sounds: no murmurs GI: Palpation (GI): Soft to palpation and nontender Neuro: Other: very mildly decreased strength in the RUE Cranial nerves: Yes Equal, round and reactive pupils present Objective Data Current Medications Generic Name Dose Route Start Last Admin Trade Name Freq PRN Reason Stop Dose Admin Acetaminophen 650 mg 04/29/20 00:57 Acetaminophen 325 Mg Tablet PO Q6H PRN Pain, Mild (Pain Scale 1-3) Aspirin 81 mg 04/29/20 09:00 04/29/20 09:20 Aspirin 81 Mg Tab.Chew PO 81 mg DAILY ILYA Administration Atorvastatin Calcium 80 mg 04/29/20 09:00 04/29/20 09:20 Atorvastatin Calcium 80 Mg Tablet PO 80 mg DAILY ILYA Administration Docusate Sodium 100 mg 04/29/20 00:57 Docusate Sodium 100 Mg Capsule PO DAILY PRN Constipation Furosemide 20 mg 04/29/20 09:00 04/29/20 09:21 Furosemide 20 Mg Tablet PO 20 mg BID ILYA Administration Protocol Insulin Human Lispro 0 unit 04/29/20 16:30 Insulin Lispro 100 Unit/Ml 3 Ml Vial SUBCUT QIDACHS [facility] Protocol Levothyroxine Sodium 125 mcg 04/29/20 06:00 04/29/20 05:58 Levothyroxine Sodium 125 Mcg Tablet PO 125 mcg DAILY@0600 ILYA Administration Pat Own Med ( 1 each 04/29/20 10:26 04/29/20 12:47 Trospium Cl 60mg Er PO 1 each Cap) DAILY ILYA Administration Ondansetron HCl 4 mg 04/29/20 00:57 Ondansetron Hcl 4 Mg/2 Ml Vial IVPUSH Q8H PRN Nausea and Vomiting Labs CBC & Chem 7: 04/29/20 01:10 04/29/20 01:10 Labs: Laboratory Results - last 24 hr 04/28/20 04/28/20 04/28/20 20:54 20:56 21:08 WBC 5.3 RBC 4.43 Hgb 12.6 Hct 39.2 MCV 88.5 MCH 28.4 MCHC 32.1 RDW 14.4 Plt Count 241 MPV 10.8 Immature Gran % (Auto) 0.2 Neut % (Auto) 53.4 Lymph % (Auto) 37.7 Heard % (Auto) 7.9 Eos % (Auto) 0.0 Baso % (Auto) 0.8 Lymph # (Auto) 2.0 Heard # (Auto) 0.4 Eos # (Auto) 0.0 Baso # (Auto) 0.0 Abs Immat Gran (auto) 0.01 Absolute Neuts (auto) 2.8 Absolute Nucleated RBC 0.000 Nucleated RBC % (auto) 0.0 PT Whole Blood PT 59.0 H INR Whole Blood INR 4.9 H APTT Sodium Potassium Chloride Carbon Dioxide Anion Gap BUN Creatinine Estim Creat Clear Calc Estimated GFR POC Glucose 100 Random Glucose Calcium Total Creatine Kinase Troponin I High Sens TSH Coronavirus (PCR) 04/28/20 04/28/20 04/28/20 21:08 21:08 21:08 WBC RBC Hgb Hct MCV MCH MCHC RDW Plt Count MPV Immature Gran % (Auto) Neut % (Auto) Lymph % (Auto) Heard % (Auto) Eos % (Auto) Baso % (Auto) Lymph # (Auto) Heard # (Auto) Eos # (Auto) Baso # (Auto) Abs Immat Gran (auto) Absolute Neuts (auto) Absolute Nucleated RBC Nucleated RBC % (auto) PT 50.7 H Whole Blood PT INR 4.2 H Whole Blood INR APTT 63.0 H* Sodium 138 Potassium 3.3 Chloride 102 Carbon Dioxide 27 Anion Gap 12 BUN 21 H Creatinine 1.39 Estim Creat Clear Calc 44.6 Estimated GFR 38 POC Glucose Random Glucose 95 Calcium 8.7 Total Creatine Kinase 73 Troponin I High Sens 6.5 TSH Coronavirus (PCR) 04/28/20 04/29/20 04/29/20 21:58 01:10 01:10 WBC 6.0 RBC 4.47 Hgb 12.7 Hct 39.7 MCV 88.8 MCH 28.4 MCHC 32.0 RDW 14.5 Plt Count 215 MPV 10.3 Immature Gran % (Auto) 0.2 Neut % (Auto) 58.3 Lymph % (Auto) 32.6 Heard % (Auto) 8.1 Eos % (Auto) 0.0 Baso % (Auto) 0.8 Lymph # (Auto) 1.9 Heard # (Auto) 0.5 Eos # (Auto) 0.0 Baso # (Auto) 0.1 Abs Immat Gran (auto) 0.01 Absolute Neuts (auto) 3.5 Absolute Nucleated RBC 0.000 Nucleated RBC % (auto) 0.0 PT Whole Blood PT INR Whole Blood INR APTT Sodium 138 Potassium 3.4 Chloride 103 Carbon Dioxide 27 Anion Gap 11 L BUN 19 H Creatinine 1.23 Estim Creat Clear Calc 50.5 Estimated GFR 43 POC Glucose Random Glucose 100 Calcium 8.6 Total Creatine Kinase Troponin I High Sens TSH Coronavirus (PCR) NEGATIVE 04/29/20 04/29/20 04/29/20 04:45 05:32 07:07 WBC RBC Hgb Hct MCV MCH MCHC RDW Plt Count MPV Immature Gran % (Auto) Neut % (Auto) Lymph % (Auto) Heard % (Auto) Eos % (Auto) Baso % (Auto) Lymph # (Auto) Heard # (Auto) Eos # (Auto) Baso # (Auto) Abs Immat Gran (auto) Absolute Neuts (auto) Absolute Nucleated RBC Nucleated RBC % (auto) PT 50.2 H Whole Blood PT INR 4.2 H Whole Blood INR APTT Sodium Potassium Chloride Carbon Dioxide Anion Gap BUN Creatinine Estim Creat Clear Calc Estimated GFR POC Glucose 96 Random Glucose Calcium Total Creatine Kinase Troponin I High Sens TSH 0.58 Coronavirus (PCR) 04/29/20 10:58 WBC RBC Hgb Hct MCV MCH MCHC RDW Plt Count MPV Immature Gran % (Auto) Neut % (Auto) Lymph % (Auto) Heard % (Auto) Eos % (Auto) Baso % (Auto) Lymph # (Auto) Heard # (Auto) Eos # (Auto) Baso # (Auto) Abs Immat Gran (auto) Absolute Neuts (auto) Absolute Nucleated RBC Nucleated RBC % (auto) PT Whole Blood PT INR Whole Blood INR APTT Sodium Potassium Chloride Carbon Dioxide Anion Gap BUN Creatinine Estim Creat Clear Calc Estimated GFR POC Glucose 80 Random Glucose Calcium Total Creatine Kinase Troponin I High Sens TSH Coronavirus (PCR) TTE (04/29/20) 1. Normal LV systolic function with grade 1 diastolic dysfunction 2. Normal cardiac valvular Doppler 3. Normal RV systolic pressure 4. No gross pericardial effusion Assessment and Plan (1) Stroke: Problem details: Embolic cerebral infarct Status: Acute Assessment and Plan: hospital d#2 69yo F with DM2, hx TIA, hx DVT on warfarin, admitted for RUE/RLE weakness, largely resolved, found to have small acute L MCA CVA # acute CVA - was not tPA candidate due to elevated INR - ASA + warfarin, Neurology consult, PT/OT, intensify statin # supratherapeutic INR # hx DVT - hold warfarin, monitor INR # hypothyroidism - TSH therapeutic, continue LT4 # DM2 - correction-dose lispro, check A1c
[2020-04-29 19:59] VITALS: BP 126/61; PULSE 73; RESP 18; TEMP 36.6; O2SAT 94
[2020-04-30] VITALS: BP 113/50; PULSE 66; RESP 16; TEMP 36.1; O2SAT 100
[2020-04-30 02:59] VITALS: BP 123/61; PULSE 67; RESP 18; TEMP 36.3; O2SAT 95
[2020-04-30 05:28] LABS: Cholesterol 230 mg/dL; HDL Cholesterol 31 mg/dL; LDL Cholesterol Calculated 175 mg/dl; Triglycerides 122 mg/dL
[2020-04-30 05:32] LABS: INTERNATIONAL NORM RATIO 3.9 (0.9-1.1); Prothrombin Time 47.1 SEC (10.8-13.0)
[2020-04-30] MEDS: Levothyroxine Sodium 125 MCG TABLET PO (05:33)
[2020-04-30 07:20] LABS: Glucose, Whole Blood 92 mg/dL (60-115)
[2020-04-30 07:56] VITALS: BP 117/61; PULSE 72; RESP 18; TEMP 36.2; O2SAT 98
[2020-04-30 08:07] LABS: Estimated Average Glucose 105 mg/dL; Hemoglobin A1c % 5.3 %
[2020-04-30] MEDS: Aspirin 81 MG TAB.CHEW PO (08:07)
[2020-04-30] MEDS: Furosemide 20 MG TABLET PO (08:07)
[2020-04-30] MEDS: Atorvastatin Calcium 80 MG TABLET PO (08:08)
[2020-04-30 09:22] LABS: Reflex LDLD? No
[2020-04-30 09:44] LABS: Erythrocyte Sedimentation Rate 38 MM/HR (0-20)
[2020-04-30 11:36] VITALS: BP 117/56; PULSE 71; RESP 20; TEMP 36.2; O2SAT 98
--- NOTE | 2020-04-30 11:36 | MHC.CM.PN ---
Patient has been medically cleared for dc to home today, with [facility]. Per Patient's preference, a referral was made to [facility], who is aware of today's dc AND next INR must be checked tomorrow- 05/01/20, per MD.Last IMM addressed on 04/29/20. Patient is aware of and in agreement with the dc plan.
[2020-04-30 12:15] VITALS: BMI 33.3
--- NOTE | 2020-04-30 13:11 | PM.DS ---
DS: Providers Provider Date of admission: 04/29/20 15:00 Consults: 04/29/20 00:57 Consult to Neurology Routine Consulting Provider: [facility] Reason for consultation: stroke/TIA Has provider been notified: No DS: Diagnosis Discharge Diagnosis (1) Stroke: Status: Acute Problem details: Embolic cerebral infarct DS: Summary Hospital Course Hospital Course: From history and physical by admitting hospitalist Jim Hayes MD, 04/28/20: This is a 69-year-old female with past medical history of TIA as well as hyperactive bladder who presents to the hospital with complaints of right-sided weakness. Patient reports that the symptoms started around 8:00 a.m., and or intermittent with episodes happening 3-4 times during the day. She reports she had difficulty lifting her right arm, and holding her cane with the right arm. She also felt drooling on the right side. Had no lower extremity weakness. Patient reports that symptoms would last for couple hours start improving slowly but then returned again. Reports that her arm is stronger at this time. She denies any headache, change in vision, no chest pain or shortness of breath, no abdominal pain nausea or vomiting, no diarrhea or constipation. No urinary symptoms and no new lower extremity edema. She has chronic lower extremity edema associated with venous insufficiency. According to the daughter who give this report to the ED physician, her mother has been experiencing mini strokes for the past 6 weeks but has been refusing to come to the ED. On arrival to the ED hemodynamically stable with no significant abnormal vitals except for an elevated blood pressure 170/55 Labs are significant for INR 4.2, otherwise unremarkable. CT angiogram of the neck shows mild atherosclerotic disease of the bilateral carotid bifurcation without hemodynamically significant stenosis or dissection, CTA of the head shows no hemodynamically significant stenosis or large vessel occlusion. The patient was not a candidate for tPA due to presentation more than 12 hours after onset of symptoms along with elevated INR. She was admitted to the [facility]. MRI demonstrated a small acute embolic stroke in the left MCA distribution. Her neurologic deficit improved considerably during hospitalization. Neurology was consulted. Continued aspirin was recommended along with high-dose atorvastatin. Pending at the time of discharge are ENRIQUE, Lyme, immunofixation from serum, and T. pallidum EIA as recommended by Neurology to workup other causes of recurrent CVA; she should follow-up with Neurology as an outpatient for the results of these. Her INR was supratherapeutic and warfarin was held. INR should be checked daily and warfarin resumed once INR <3. She was discharged home with VNA and home PT and OT services. Time Spent with Patient Time attestation: Total time spent providing and/or coordinating discharge services: 35 Quality: Stroke Pt Provided Written Stroke Discharge Instructions: Patient given written information Physical Exam Vital Signs: Vital Signs: Last Vital Signs Temp 97.2 F 04/30/20 11:36 Pulse 71 04/30/20 11:36 Resp 20 04/30/20 11:36 BP 117/56 L 04/30/20 11:36 Pulse Ox 98 04/30/20 11:36 Body Mass Index 33.3 Const: General: no acute distress Eyes: Pupils: Equal, round and reactive pupils present Neck: Neck: Yes normal visual inspection Chest: Chest palpation & inspection: normal inspection of the chest Cardio: Rate: regular rate Rhythm: regular rhythm Heart sounds: no murmurs GI: Palpation (GI): Soft to palpation and nontender Neuro: Other: very mildly decreased strength in the RUE Cranial nerves: Yes Equal, round and reactive pupils present DS: Data Data Completed and Pending Labs on day of discharge: Laboratory Tests 04/28/20 04/28/20 04/28/20 20:54 20:56 21:08 WBC 5.3 RBC 4.43 Hgb 12.6 Hct 39.2 MCV 88.5 MCH 28.4 MCHC 32.1 RDW 14.4 Plt Count 241 MPV 10.8 Immature Gran % (Auto) 0.2 Neut % (Auto) 53.4 Lymph % (Auto) 37.7 Conway % (Auto) 7.9 Eos % (Auto) 0.0 Baso % (Auto) 0.8 Lymph # (Auto) 2.0 Conway # (Auto) 0.4 Eos # (Auto) 0.0 Baso # (Auto) 0.0 Abs Immat Gran (auto) 0.01 Absolute Neuts (auto) 2.8 Absolute Nucleated RBC 0.000 Nucleated RBC % (auto) 0.0 ESR PT Whole Blood PT 59.0 H INR Whole Blood INR 4.9 H APTT Sodium Potassium Chloride Carbon Dioxide Anion Gap BUN Creatinine Estim Creat Clear Calc Estimated GFR POC Glucose 100 Random Glucose Estimat Average Glucose Hemoglobin A1c % Calcium Total Creatine Kinase Troponin I High Sens Triglycerides Cholesterol LDL Cholesterol, Calc HDL Cholesterol TSH Coronavirus (PCR) 04/28/20 04/28/20 04/28/20 21:08 21:08 21:08 WBC RBC Hgb Hct MCV MCH MCHC RDW Plt Count MPV Immature Gran % (Auto) Neut % (Auto) Lymph % (Auto) Conway % (Auto) Eos % (Auto) Baso % (Auto) Lymph # (Auto) Conway # (Auto) Eos # (Auto) Baso # (Auto) Abs Immat Gran (auto) Absolute Neuts (auto) Absolute Nucleated RBC Nucleated RBC % (auto) ESR PT 50.7 H Whole Blood PT INR 4.2 H Whole Blood INR APTT 63.0 H* Sodium 138 Potassium 3.3 Chloride 102 Carbon Dioxide 27 Anion Gap 12 BUN 21 H Creatinine 1.39 Estim Creat Clear Calc 44.6 Estimated GFR 38 POC Glucose Random Glucose 95 Estimat Average Glucose Hemoglobin A1c % Calcium 8.7 Total Creatine Kinase 73 Troponin I High Sens 6.5 Triglycerides Cholesterol LDL Cholesterol, Calc HDL Cholesterol TSH Coronavirus (PCR) 04/28/20 04/29/20 04/29/20 21:58 01:10 01:10 WBC 6.0 RBC 4.47 Hgb 12.7 Hct 39.7 MCV 88.8 MCH 28.4 MCHC 32.0 RDW 14.5 Plt Count 215 MPV 10.3 Immature Gran % (Auto) 0.2 Neut % (Auto) 58.3 Lymph % (Auto) 32.6 Conway % (Auto) 8.1 Eos % (Auto) 0.0 Baso % (Auto) 0.8 Lymph # (Auto) 1.9 Conway # (Auto) 0.5 Eos # (Auto) 0.0 Baso # (Auto) 0.1 Abs Immat Gran (auto) 0.01 Absolute Neuts (auto) 3.5 Absolute Nucleated RBC 0.000 Nucleated RBC % (auto) 0.0 ESR PT Whole Blood PT INR Whole Blood INR APTT Sodium 138 Potassium 3.4 Chloride 103 Carbon Dioxide 27 Anion Gap 11 L BUN 19 H Creatinine 1.23 Estim Creat Clear Calc 50.5 Estimated GFR 43 POC Glucose Random Glucose 100 Estimat Average Glucose Hemoglobin A1c % Calcium 8.6 Total Creatine Kinase Troponin I High Sens Triglycerides Cholesterol LDL Cholesterol, Calc HDL Cholesterol TSH Coronavirus (PCR) NEGATIVE 04/29/20 04/29/20 04/29/20 04:45 05:32 07:07 WBC RBC Hgb Hct MCV MCH MCHC RDW Plt Count MPV Immature Gran % (Auto) Neut % (Auto) Lymph % (Auto) Conway % (Auto) Eos % (Auto) Baso % (Auto) Lymph # (Auto) Conway # (Auto) Eos # (Auto) Baso # (Auto) Abs Immat Gran (auto) Absolute Neuts (auto) Absolute Nucleated RBC Nucleated RBC % (auto) ESR PT 50.2 H Whole Blood PT INR 4.2 H Whole Blood INR APTT Sodium Potassium Chloride Carbon Dioxide Anion Gap BUN Creatinine Estim Creat Clear Calc Estimated GFR POC Glucose 96 Random Glucose Estimat Average Glucose Hemoglobin A1c % Calcium Total Creatine Kinase Troponin I High Sens Triglycerides Cholesterol LDL Cholesterol, Calc HDL Cholesterol TSH 0.58 Coronavirus (PCR) 04/29/20 04/30/20 04/30/20 10:58 04:19 04:19 WBC RBC Hgb Hct MCV MCH MCHC RDW Plt Count MPV Immature Gran % (Auto) Neut % (Auto) Lymph % (Auto) Conway % (Auto) Eos % (Auto) Baso % (Auto) Lymph # (Auto) Conway # (Auto) Eos # (Auto) Baso # (Auto) Abs Immat Gran (auto) Absolute Neuts (auto) Absolute Nucleated RBC Nucleated RBC % (auto) ESR PT 47.1 H Whole Blood PT INR 3.9 H Whole Blood INR APTT Sodium Potassium Chloride Carbon Dioxide Anion Gap BUN Creatinine Estim Creat Clear Calc Estimated GFR POC Glucose 80 Random Glucose Estimat Average Glucose Hemoglobin A1c % Calcium Total Creatine Kinase Troponin I High Sens Triglycerides 122 Cholesterol 230 LDL Cholesterol, Calc 175 HDL Cholesterol 31 TSH Coronavirus (PCR) 04/30/20 04/30/20 04/30/20 04:19 07:17 08:48 WBC RBC Hgb Hct MCV MCH MCHC RDW Plt Count MPV Immature Gran % (Auto) Neut % (Auto) Lymph % (Auto) Conway % (Auto) Eos % (Auto) Baso % (Auto) Lymph # (Auto) Conway # (Auto) Eos # (Auto) Baso # (Auto) Abs Immat Gran (auto) Absolute Neuts (auto) Absolute Nucleated RBC Nucleated RBC % (auto) ESR 38 H PT Whole Blood PT INR Whole Blood INR APTT Sodium Potassium Chloride Carbon Dioxide Anion Gap BUN Creatinine Estim Creat Clear Calc Estimated GFR POC Glucose 92 Random Glucose Estimat Average Glucose 105 Hemoglobin A1c % 5.3 Calcium Total Creatine Kinase Troponin I High Sens Triglycerides Cholesterol LDL Cholesterol, Calc HDL Cholesterol TSH Coronavirus (PCR) TTE (04/29/20): 1. Normal LV systolic function with grade 1 diastolic dysfunction 2. Normal cardiac valvular Doppler 3. Normal RV systolic pressure 4. No gross pericardial effusion MRI brain (04/29/20): - There is a small acute infarct within the left perirolandic region and the high left parasagittal frontal lobe in the left MCA territory. No mass effect and no hemorrhagic transformation. - Chronic cortical/subcortical infarcts within the parietal lobes bilaterally, the left temporal occipital lobe, and moderate chronic microangiopathy. Chronic lacunar infarcts within the cerebellar hemispheres bilaterally. - Small foci of susceptibility signal within the periphery of the cerebral hemispheres that may reflect chronic hypertensive petechial microhemorrhages and/or the sequela of amyloid angiopathy. CTA head/neck (04/28/20): CTA NECK: Mild atherosclerotic disease of the bilateral carotid bifurcations without hemodynamically significant stenosis or dissection. CTA HEAD: No hemodynamically significant stenosis or large vessel occlusion. Developmentally diminutive posterior circulation with origins of the bilateral posterior cerebral arteries. CTH (04/28/20): No acute intracranial pathology. Discharge Plan Discharge Anticipated Discharge Date/Time: 04/30/20 13:03 Patient Disposition: Home Health Service Referrals: [facility] [Outside] Babar Mckinney MD [Physician] - (recurrent CVA) Physician,Unknown [Primary Care Provider] - Discharge Medications: New atorvastatin 80 mg Tablet 80 mg PO DAILY Qty: 30 RF: 0 Continued levothyroxine 125 mcg tablet 1 tab PO DAILY RF: 0 furosemide 20 mg tablet 1 tab PO BID RF: 0 trospium 60 mg capsule,extended release 24hr 1 cap PO QAM RF: 0 aspirin 81 mg Tablet 81 mg PO DAILY RF: 0 Held warfarin 2.5 mg tablet 1 - 2 tab PO DAILY RF: 0 Hold Instructions: Resume on 05/02/20. hold until INR <3 Discharge Orders: Discharge Order (Routine); Ordered 04/30/20 Ordered By: Loren Weinstein Diet: diabetic diet, low fat, low cholesterol, low salt diet and other Activity on Discharge: As tolerated Patient Instructions: Ischemic Stroke (DC), Mediterranean Diet (DC) Other Ambulatory Orders: Prothrombin Time INR (DAILY) Timeframe: 20200508 Facility: [facility] - Location: Laboratory Ordered By: Loren Weinstein Prothrombin Time INR (DAILY) Timeframe: 20200509 Facility: [facility] - Location: Laboratory Ordered By: Loren Weinstein Prothrombin Time INR (DAILY) Timeframe: 20200510 Facility: [facility] - Location: Laboratory Ordered By: Loren Weinstein Prothrombin Time INR (DAILY) Timeframe: 20200511 Facility: [facility] - Location: Laboratory Ordered By: Loren Weinstein Visit Report Forms: Patient Portal Discharge page Care Plan Goals: recover from current stroke and prevent future strokes Health Concerns: recurrent strokes Plan of Treatment: take baby aspirin 81 mg daily. INR today is 3.9 HOLD warfarin. check INR daily until <3 then resume warfarin. take atorvastatin 80 mg daily. follow a Mediterranean diet. follow up with Neurology in 1 month. home physical therapy and VNA services.
--- NOTE | 2020-04-30 15:10 | MHC.CM.PN ---
CM just received a call from [facility] Liaison, that they are unable to accommodate daily INR draws. CM has referred to additional VNAs and await response.
--- NOTE | 2020-04-30 16:08 | P.F2F_ITS ---
Service Date Service Date: 04/30/20 Encounter Date of encounter: 04/30/20 Reasons for Services Reason for mcfp: neurological assessment, monitoring of PT/INR, medication management, medication treatment and teach disease management Reason for physical therapy: home safety and mobility, therapeutic exercises, gait/transfer training, assess need for DME, ADL training and energy conservation Reason for occupational therapy: home safety and mobility, therapeutic exercises, gait/transfer training, assess need for DME, ADL training and energy conservation Overseeing Care: Rosa Carney Homebound: Leaving the home is medically contraindicated at this time without the asist of a device and/or another person due th the listed conditions above and below. Reason homebound: unsteady gait / fall risk and weakness related to hospital stay Homebound supporting statement: Ms Sutton was admitted to [facility] 04/28-04/30/20 for acute ischemic CVA and will need home PT/OT and VNA services Certification: Based on the above findings, I certify that this patient is confined to the home and needs intermittent mcfp care, physical therapy and/or speech therapy, or continues to need occupational therapy. The patient is under my care, and I have initiated the establishment of the plan of care. The patient will be followed by a physician who will periodically review the plan of care.
--- NOTE | 2020-04-30 16:33 | MHC.CM.PN ---
[facility] has accepted Patient; they accept Patient's Insurance and can accommodate daily blood draws. CM has informed Patient of the change in agencies and she is in agreement.
--- NOTE | 2020-04-30 16:42 | MHC.CM.PN ---
DC summary has been successfully faxed over to [facility] and is now being uploaded into [employer].
[2020-05-01 08:18] LABS: Syphilis Screen Nonreactive (Nonreactive)
[2020-05-02 14:41] LABS: IgA 358 mg/dL (70-320); IgG 1230 mg/dL (600-1540); IgM 87 mg/dL (50-300)
== END 2020-04-30 14:00 | disposition home health service (06) | DRG 66 ==
LOC: HO.ED 22:08 → HO.IMC 22:49
PROVIDERS: Admitting Provider Internal Medicine; Emergency Provider Emergency Medicine; Visit Provider Family Medicine
DX: I63.412 Cerebral infarction due to embolism of left middle cerebral artery (principal); N31.8 Other neuromuscular dysfunction of bladder; E03.9 Hypothyroidism, unspecified; R29.702 NIHSS score 2; R79.1 Abnormal coagulation profile; Z20.828 Contact with and (suspected) exposure to other viral communicable diseases; Z86.73 Personal history of transient ischemic attack (TIA), and cerebral infarction without residual deficits; Z79.01 Long term (current) use of anticoagulants; Z79.82 Long term (current) use of aspirin; Z79.890 Hormone replacement therapy; Z79.899 Other long term (current) drug therapy
CPT/HCPCS: 36415; 70450; 70496; 70498; 70551; 80048; 80061; 82550; 82784; 82947; 83036; 84443; 84484; 85025; 85610; 85652; 85730; 86038; 86039; 86334; 86618; 86780; 93005; 93306; 97110; 97116; 97162; 97166; 97535; 99285; Q9957; Q9967; U0003

== ENCOUNTER → 2020-06-28 09:55 | Outpatient (REF) | payer MEDICARE, SELFPAY ==
--- NOTE | 2020-06-28 10:00 | ECG_ITS ---
Hook-up date: 2020-06-28 10:14:00 Duration: 47:59:00 Test Indications: multiple cerebral infarctions Medications: 791953 QRS complexes 24 Ventricular ectopics which represent <1 % of total QRS comp. 12 Supraventricular ectopics which represent <1 % of total QRS comp. * Paced QRS complexs which represent % of total QRS comp. VENTRICULAR ECTOPY 24 Isolated 0 Bigeminal Cycles 0 Couplets 0 Runs 0 Beats in Runs * Beats LONGEST at * BPM at :: -- * Beats FASTEST at * BPM at :: -- SUPRAVENTRICULAR ECTOPY 8 Isolated 2 Couplets 0 Runs 0 Beats in Runs * Beats LONGEST at * BPM at :: -- * Beats FASTEST at * BPM at :: -- HEART RATES 57 MIN at 02:19:24 2020-06-29 73 AVG 108 MAX at 09:55:56 2020-06-30 LONGEST RR 1.1760 secs at 05:40:11 2020-06-30 S-T LEVELS Channel 1 - 128 mm at 10:14:00 2020-06-28 - 128 mm at 10:14:00 2020-06-28 Channel 2 - 128 mm at 10:14:00 2020-06-28 - 128 mm at 10:14:00 2020-06-28 Channel 3 - 128 mm at 02:93:31 -- - 128 mm at 02:93:31 Basic rhythm Normal sinus rhythm No long pause or profound bradycardia Rare Premature ventricular complexes No sustained Atrial fibrillation Patient did not report any symptoms in the diary Referred By: Babar Mckinney Overread By: FERN QUEEN MD
== END ==
LOC: HO.CARD 09:55
PROVIDERS: Visit Provider Psychiatry & Neurology Neurology
DX: Z86.73 Personal history of transient ischemic attack (TIA), and cerebral infarction without residual deficits (principal)
CPT/HCPCS: 93225; 93226

== ENCOUNTER → 2020-07-04 09:58 | Outpatient (BNVA) | payer MEDICARE, SELFPAY | PROVIDERS: Visit Provider Surgery Vascular Surgery | DX: I65.23 Occlusion and stenosis of bilateral carotid arteries (principal); I89.0 Lymphedema, not elsewhere classified | CPT/HCPCS: 99212 ==

== ENCOUNTER → 2020-08-23 10:41 | Outpatient (BNVA) | payer MEDICARE, SELFPAY | PROVIDERS: Visit Provider Orthopaedic Surgery | DX: M17.0 Bilateral primary osteoarthritis of knee (principal) | CPT/HCPCS: 20610; J1040; Q3014 ==

== ENCOUNTER 2020-12-19 11:21 | Outpatient (REF) | payer MEDICARE, SELFPAY ==
--- NOTE | ~2020-12-19 | US_ITS ---
EXAMINATION: US EXTRACRANIAL CAROTID DUPLEX, BILATERAL CLINICAL INFORMATION: Bilateral carotid artery stenosis. Hyperlipidemia. COMPARISON: 11/06/2019. TECHNIQUE: Real-time ultrasound and Doppler techniques (integrating B-mode 2-D vascular images, Doppler spectral analysis and color-flow Doppler imaging) were utilized to interrogate the extracranial carotid arteries, the vertebral arteries and proximal subclavian arteries bilaterally. The degree of stenosis is determined by criteria similar to NASCET. FINDINGS: Right Side: 1. There is heterogeneous atherosclerotic plaque seen in the bifurcation/proximal ICA region. 2. The common carotid artery PSV proximally is 91 cm/s and distally 90 cm/s. 3. The proximal internal carotid artery velocities are 104 cm/s systolic and 27 cm/s diastolic. 4. The proximal external carotid artery PSV is 112 cm/s. 5. The vertebral artery shows antegrade flow. 6. The subclavian artery waveforms are normal. Left Side: 1. There is heterogeneous atherosclerotic plaque seen in the bifurcation/proximal ICA region. 2. The common carotid artery PSV proximally is 92 cm/s and distally 76 cm/s. 3. The proximal internal carotid artery velocities are 244 cm/s systolic and 60 cm/s diastolic. 4. The proximal external carotid artery PSV is 83 cm/s. 5. The vertebral artery shows antegrade flow. 6. The subclavian artery waveforms are normal. US/US carotid duplex BI IMPRESSION: 1. RIGHT: Minimal, non-hemodynamically significant stenosis of the proximal right internal carotid artery corresponding to a 0-49% stenosis by velocity criteria. 2. LEFT: Moderate, hemodynamically significant stenosis of the proximal left internal carotid artery corresponding to a 50-79% stenosis by velocity criteria. 3. There is no change in the category severity of disease when compared to the previous study dated 11/06/2019.
== END 2020-12-19 11:22 | disposition home or self-care (01) ==
LOC: HO.US 11:21
PROVIDERS: PCP Internal Medicine; Visit Provider Surgery Vascular Surgery
DX: I65.23 Occlusion and stenosis of bilateral carotid arteries (principal)
CPT/HCPCS: 93880

== ENCOUNTER → 2020-12-27 08:47 | Outpatient (BNVA) | payer MEDICARE, SELFPAY | PROVIDERS: PCP Internal Medicine; Visit Provider Orthopaedic Surgery | DX: M17.0 Bilateral primary osteoarthritis of knee (principal) | CPT/HCPCS: 20610; 99212; J1040 ==

== ENCOUNTER → 2021-01-02 11:13 | Outpatient (BNVA) | payer MEDICARE, SELFPAY | PROVIDERS: PCP Internal Medicine; Visit Provider Surgery Vascular Surgery | DX: I65.23 Occlusion and stenosis of bilateral carotid arteries (principal) | CPT/HCPCS: 99212 ==

== ENCOUNTER 2021-05-26 08:19 | Outpatient (REF) | payer MEDICARE, SELFPAY | END 2021-05-26 08:20 | disposition home or self-care (01) | LOC: HO.HOSX 08:19 | PROVIDERS: Visit Provider Orthopaedic Surgery | DX: Z13.89 Encounter for screening for other disorder (principal) ==

== ENCOUNTER → 2021-06-10 09:54 | Outpatient (BNVA) | payer MEDICARE, SELFPAY | PROVIDERS: PCP Internal Medicine; Visit Provider Surgery Vascular Surgery | DX: I83.11 Varicose veins of right lower extremity with inflammation (principal); I65.23 Occlusion and stenosis of bilateral carotid arteries | CPT/HCPCS: 99212 ==

== ENCOUNTER 2021-06-24 07:54 | Outpatient (REF) | payer MEDICARE, SELFPAY ==
--- NOTE | ~2021-06-24 | US_ITS ---
EXAMINATION: US LOWER EXTREMITY VENOUS ULTRASOUND (REFLUX EXAM), CLINICAL INDICATION: Bilateral lower extremity varicose veins. COMPARISON: Right lower extremity venous Doppler ultrasound on 03/28/2018. TECHNIQUE: Color-flow triplex imaging and compression Doppler was performed to evaluate both the deep and the superficial systems bilaterally. To evaluate the superficial system, the examination was performed in the upright position. Color-flow Doppler ultrasound and compression ultrasound were utilized. In addition, maneuvers were utilized to demonstrate reflux. FINDINGS: SUPERFICIAL ULTRASOUND WITH DOPPLER OF RIGHT LOWER EXTREMITY GREAT SAPHENOUS VEIN: Saphenofemoral junction: 0.5 cm Max diameter: 0.5 cm Min diameter: 0.2 cm Reflux: There is segmental reflux [id number] measuring up to 1.2 seconds. Additional: The great saphenous vein at the level of the mid thigh is occluded. DUPLICATED MEDIAL GREAT SAPHENOUS VEIN: Max Diameter: 0.3 cm at the junction, Reflux: None. DUPLICATED LATERAL GREAT SAPHENOUS VEIN: Diameter: None imaged. Reflux: NA. SMALL SAPHENOUS VEIN: Proximal Calf: 0.5 cm Distal Calf: 0.4 cm Reflux: No evidence of reflux. VEIN OF GIACOMINI: None imaged. PERFORATORS: Location: Proximal calf, 3 mm. Reflux: None. VARICOSITIES: Location: Mid calf, measuring 3 and 4 mm. Reflux: Both varicosities have greater than 1.5 seconds of reflux. DEEP VENOUS ULTRASOUND OF THE RIGHT LOWER EXTREMITY: Common Femoral Vein: Compressible, normal respiratory variation and augmented flow. Femoral Vein: Compressible, normal color-flow and augmentation. Popliteal Vein: Compressible, normal augmentation. Deep Reflux: There is no evidence of reflux in the deep system in either the common femoral vein or the popliteal vein. Hager's Cyst: There is a 5.7 x 1.3 x 4.3 cm right popliteal fossa Hager's cyst. SUPERFICIAL ULTRASOUND WITH DOPPLER OF LEFT LOWER EXTREMITY GREAT SAPHENOUS VEIN: Saphenofemoral junction: 0.5 cm Max diameter: 0.5 cm Min diameter: 0.2 cm Reflux: There is segmental reflux at the ankle measuring up to 1.4 seconds. Additional: There is occlusion of the saphenous vein from the proximal thigh to [id number]. DUPLICATED MEDIAL GREAT SAPHENOUS VEIN: Max Diameter: 0.4 cm at the junction. Reflux: NA. DUPLICATED LATERAL GREAT SAPHENOUS VEIN: Diameter: None imaged. Reflux: NA. SMALL SAPHENOUS VEIN: Proximal Calf: 0.4 cm Distal Calf: 0.2 cm Reflux: There is greater than 2.8 seconds of reflux within the proximal small saphenous vein. VEIN OF GIACOMINI: None imaged. PERFORATORS: Location: Mid and distal calf each measuring 2 mm. Reflux: Both perforators demonstrate reflux greater than 1.4 seconds. VARICOSITIES: Location: Mid thigh and distal calf measuring 3 and 4 mm. Reflux: The distal varicosity demonstrates reflux greater than 3 seconds. DEEP VENOUS ULTRASOUND OF THE LEFT LOWER EXTREMITY: Common Femoral Vein: Compressible, normal respiratory variation and augmented flow. Femoral Vein: Compressible, normal color-flow and augmentation. Popliteal Vein: Compressible, normal augmentation. Deep Reflux: There is no evidence of reflux in the deep system in either the common femoral vein or the popliteal vein. Hager's Cyst: There is a 2.9 x 1.3 x 2.4 cm left popliteal fossa Hager's cyst. US/US venous duplex LE BI IMPRESSION: 1. Segmental reflux within the right great saphenous vein [id number]. The right great saphenous vein is occluded at the mid thigh. 2. Segmental reflux of the left great saphenous vein at the ankle. The left great saphenous vein is occluded from the proximal thigh to [id number]. 3. Left small saphenous venous insufficiency. 4. Bilateral refluxing varicosities. 5. No evidence of DVT or deep venous insufficiency. 6. Bilateral Hager's cysts.
== END 2021-06-24 07:55 | disposition home or self-care (01) ==
LOC: HO.US 07:54
PROVIDERS: PCP Internal Medicine; Visit Provider Surgery Vascular Surgery
DX: I83.11 Varicose veins of right lower extremity with inflammation (principal)
CPT/HCPCS: 93970

== ENCOUNTER → 2021-07-01 11:07 | Outpatient (BNVA) | payer MEDICARE, SELFPAY | PROVIDERS: PCP Internal Medicine; Visit Provider Surgery Vascular Surgery | DX: I83.11 Varicose veins of right lower extremity with inflammation (principal); I89.0 Lymphedema, not elsewhere classified; I65.23 Occlusion and stenosis of bilateral carotid arteries | CPT/HCPCS: 99212 ==

== ENCOUNTER 2021-08-25 08:00 | Outpatient (RCR) | payer MEDICARE, SELFPAY | END 2021-09-15 09:22 | disposition home or self-care (01) | LOC: HO.WCC 08:00 | PROVIDERS: PCP Internal Medicine; Visit Provider Physician Assistant | DX: I87.331 Chronic venous hypertension (idiopathic) with ulcer and inflammation of right lower extremity (principal); L97.811 Non-pressure chronic ulcer of other part of right lower leg limited to breakdown of skin; S61.210A Laceration without foreign body of right index finger without damage to nail, initial encounter; L03.115 Cellulitis of right lower limb; I87.2 Venous insufficiency (chronic) (peripheral); I82.813 Embolism and thrombosis of superficial veins of lower extremities, bilateral; M71.22 Synovial cyst of popliteal space [Baker], left knee; M71.21 Synovial cyst of popliteal space [Baker], right knee; Z91.19 Patient's noncompliance with other medical treatment and regimen; Z86.718 Personal history of other venous thrombosis and embolism; Z79.2 Long term (current) use of antibiotics | CPT/HCPCS: 29581; 97597; 99212 ==

== ENCOUNTER 2021-10-24 07:18 | Outpatient (REF) | payer MEDICARE, SELFPAY ==
--- NOTE | ~2021-10-24 | XR_ITS ---
EXAMINATION: XR KNEES, BILATERAL XR KNEE, RIGHT XR KNEE, LEFT CLINICAL INFORMATION: Right knee pain. COMPARISON: None TECHNIQUE: Bilateral AP knee standing. 2 views each knee. FINDINGS: Bilateral AP knee standing: There is severe loss of medial compartment joint space of both knees. The lateral compartment joint space is preserved. There is no bony erosive changes. The soft tissues are normal. Right knee: There is moderate loss of right patellofemoral compartment joint space with superior periarticular spurring and mild suprapatellar joint effusion. There are no loose bodies. Left knee: There is loss of patellofemoral compartment joint space with suprapatellar periarticular spurring. There are no loose bodies seen. There is no abnormal joint effusion. The soft tissues are normal. XR/XR knee RT 2V IMPRESSION: Severe degenerative arthritic changes medial and patellofemoral compartment both knees. There is mild suprapatellar joint effusion right knee. No acute fracture or dislocation seen.
--- NOTE | ~2021-10-24 | XR_ITS ---
EXAMINATION: XR KNEES, BILATERAL XR KNEE, RIGHT XR KNEE, LEFT CLINICAL INFORMATION: Right knee pain. COMPARISON: None TECHNIQUE: Bilateral AP knee standing. 2 views each knee. FINDINGS: Bilateral AP knee standing: There is severe loss of medial compartment joint space of both knees. The lateral compartment joint space is preserved. There is no bony erosive changes. The soft tissues are normal. Right knee: There is moderate loss of right patellofemoral compartment joint space with superior periarticular spurring and mild suprapatellar joint effusion. There are no loose bodies. Left knee: There is loss of patellofemoral compartment joint space with suprapatellar periarticular spurring. There are no loose bodies seen. There is no abnormal joint effusion. The soft tissues are normal. XR/XR knee LT 2V IMPRESSION: Severe degenerative arthritic changes medial and patellofemoral compartment both knees. There is mild suprapatellar joint effusion right knee. No acute fracture or dislocation seen.
--- NOTE | ~2021-10-24 | XR_ITS ---
EXAMINATION: XR KNEES, BILATERAL XR KNEE, RIGHT XR KNEE, LEFT CLINICAL INFORMATION: Right knee pain. COMPARISON: None TECHNIQUE: Bilateral AP knee standing. 2 views each knee. FINDINGS: Bilateral AP knee standing: There is severe loss of medial compartment joint space of both knees. The lateral compartment joint space is preserved. There is no bony erosive changes. The soft tissues are normal. Right knee: There is moderate loss of right patellofemoral compartment joint space with superior periarticular spurring and mild suprapatellar joint effusion. There are no loose bodies. Left knee: There is loss of patellofemoral compartment joint space with suprapatellar periarticular spurring. There are no loose bodies seen. There is no abnormal joint effusion. The soft tissues are normal. XR/XR knee standing BI IMPRESSION: Severe degenerative arthritic changes medial and patellofemoral compartment both knees. There is mild suprapatellar joint effusion right knee. No acute fracture or dislocation seen.
== END 2021-10-24 07:19 | disposition home or self-care (01) ==
LOC: HO.HOSX 07:18
PROVIDERS: Visit Provider Physician Assistant
DX: M17.0 Bilateral primary osteoarthritis of knee (principal)
CPT/HCPCS: 20610; 73560; 73565; 99212; J1020

== ENCOUNTER 2021-12-17 09:53 | Outpatient (REF) | payer MEDICARE, SELFPAY ==
--- NOTE | ~2021-12-17 | US_ITS ---
EXAMINATION: US EXTRACRANIAL CAROTID DUPLEX, BILATERAL CLINICAL INFORMATION: Carotid stenosis COMPARISON: 12/19/2020 TECHNIQUE: Real-time ultrasound and Doppler techniques (integrating B-mode 2-D vascular images, Doppler spectral analysis and color-flow Doppler imaging) were utilized to interrogate the extracranial carotid arteries, the vertebral arteries and proximal subclavian arteries bilaterally. The degree of stenosis is determined by criteria similar to NASCET. FINDINGS: Right Side: 1. There is minimal atherosclerotic plaque seen in the bifurcation/proximal ICA region. 2. The common carotid artery PSV proximally is 120 cm/s and distally 124 cm/s. 3. The proximal internal carotid artery velocities are 107 cm/s systolic and 27.6 cm/s diastolic. 4. The proximal external carotid artery PSV is 103 cm/s. 5. The vertebral artery shows antegrade flow. 6. The subclavian artery waveforms are normal. Left Side: 1. There is moderate noncalcified atherosclerotic plaque seen in the bifurcation/proximal ICA region. 2. The common carotid artery PSV proximally is 81.5 cm/s and distally 98.5 cm/s. 3. The proximal internal carotid artery velocities are 250 cm/s systolic and 58.9 cm/s diastolic. 4. The proximal external carotid artery PSV is 134 cm/s. 5. The vertebral artery shows antegrade flow. 6. The subclavian artery waveforms are normal. US/US carotid duplex BI IMPRESSION: 1. RIGHT: Minimal, non-hemodynamically significant stenosis of the proximal right internal carotid artery corresponding to a 0-49% stenosis by velocity criteria. 2. LEFT: Moderate, hemodynamically significant stenosis of the proximal left internal carotid artery corresponding to a 50-79% stenosis by velocity criteria. 3. There is no change in the category severity of disease when compared to the previous study dated 12/19/2020.
== END 2021-12-17 09:54 | disposition home or self-care (01) ==
LOC: HO.US 09:53
PROVIDERS: Visit Provider Surgery Vascular Surgery
DX: I65.23 Occlusion and stenosis of bilateral carotid arteries (principal)
CPT/HCPCS: 93880

== ENCOUNTER → 2021-12-23 09:15 | Outpatient (BNVA) | payer MEDICARE, SELFPAY | PROVIDERS: PCP Internal Medicine; Visit Provider Surgery Vascular Surgery | DX: I65.23 Occlusion and stenosis of bilateral carotid arteries (principal); I89.0 Lymphedema, not elsewhere classified | CPT/HCPCS: 99212 ==

== ENCOUNTER → 2022-01-06 09:17 | Outpatient (BNVA) | payer MEDICARE, SELFPAY | PROVIDERS: PCP Internal Medicine; Visit Provider Surgery Vascular Surgery | DX: L97.919 Non-pressure chronic ulcer of unspecified part of right lower leg with unspecified severity (principal) | CPT/HCPCS: 99212 ==

== ENCOUNTER → 2022-01-20 09:14 | Outpatient (BNVA) | payer MEDICARE, SELFPAY | PROVIDERS: PCP Internal Medicine; Visit Provider Surgery Vascular Surgery | DX: I89.0 Lymphedema, not elsewhere classified (principal) | CPT/HCPCS: 99212 ==

== ENCOUNTER → 2022-02-18 12:57 | Outpatient (BNVA) | payer MEDICARE, SELFPAY | PROVIDERS: PCP Nurse Practitioner Family; Visit Provider Internal Medicine | DX: Z86.73 Personal history of transient ischemic attack (TIA), and cerebral infarction without residual deficits (principal); Z86.718 Personal history of other venous thrombosis and embolism; Z51.81 Encounter for therapeutic drug level monitoring; Z79.01 Long term (current) use of anticoagulants | CPT/HCPCS: 85610; 99202 ==

== ENCOUNTER → 2022-02-19 14:53 | Outpatient (BNVA) | payer MEDICARE, SELFPAY | PROVIDERS: PCP Nurse Practitioner Family; Visit Provider Surgery Vascular Surgery | DX: L97.919 Non-pressure chronic ulcer of unspecified part of right lower leg with unspecified severity (principal); I89.0 Lymphedema, not elsewhere classified | CPT/HCPCS: 99212 ==

== ENCOUNTER → 2022-02-25 08:59 | Outpatient (BNVA) | payer MEDICARE, SELFPAY | PROVIDERS: PCP Nurse Practitioner Family; Visit Provider Internal Medicine | DX: Z86.718 Personal history of other venous thrombosis and embolism (principal); Z86.73 Personal history of transient ischemic attack (TIA), and cerebral infarction without residual deficits; Z79.01 Long term (current) use of anticoagulants; Z51.81 Encounter for therapeutic drug level monitoring | CPT/HCPCS: 85610; 99211 ==

== ENCOUNTER 2022-03-11 09:18 | Outpatient (REF) | payer MEDICARE, SELFPAY ==
[2022-03-11 09:59] LABS: MANUAL DIFF FLAG NO
[2022-03-11 10:49] LABS: Basophils Percent Auto 0.8 % (0-2); Eosinophils Percent Auto 0.8 % (0-4); Hematocrit 37.8 % (37.0-47.0); Hemoglobin 12.3 g/dl (12.0-16.0); Imm Gran Abs Auto 0.02 X10*3/uL (0.00-0.03); Imm Gran Pct Auto 0.4 % (0.0-0.4); Lymphocytes Absolute Auto 1.7 X10*3/uL (1.2-4.9); Lymphocytes Percent Auto 34.3 % (20-40); Mean Corpuscular HGB Conc 32.5 g/dl (31.0-35.0); Mean Corpuscular Hemoglobin 28.4 pg (27.0-33.0); Mean Corpuscular Volume 87.3 fL (80.0-98.0); Mean Platelet Volume 11.5 fL (9.4-12.3); Monocytes Absolute Auto 0.4 X10*3/uL (0.1-1.2); Monocytes Percent Auto 7.1 % (2-11); Neutrophils Absolute Auto 2.8 x10*3/uL (2.0-8.3); Neutrophils Percent Auto 56.6 % (45-73); Platelet Count 217 X10*3/uL (160-400); Red Blood Count 4.33 X10*6/uL (4.20-5.50); Red Cell Distribution Width 13.6 % (11.0-16.0); White Blood Count 4.9 X10*3/uL (4.8-10.8)
[2022-03-11 10:56] LABS: INTERNATIONAL NORM RATIO 3.2 (0.9-1.1); Prothrombin Time 38.4 SEC (10.0-13.1)
[2022-03-11 11:22] LABS: Alanine Aminotransferase 14 U/L (0-31); Alkaline Phosphatase 104 U/L (39-117); Anion Gap 16 (12-20); Aspartate Amino Transferase 23 U/L (5-31); Bilirubin Total 0.7 mg/dL (0.0-1.0); Blood Urea Nitrogen 22 mg/dL (9-16); Calcium 8.8 mg/dL (8.4-10.2); Carbon Dioxide 24 mmol/L (22-29); Chloride 103 mmol/L (96-108); Cholesterol 162 mg/dL; Estimated Glomerular Filt Rate 41; Glucose Fasting 89 mg/dL (60-99); HDL Cholesterol 38 mg/dL; LDL Cholesterol Calculated 98 mg/dl; Sodium 139 mmol/L (135-145); Total Protein 7.6 g/dL (6.5-8.0); Triglycerides 132 mg/dL
[2022-03-11 11:47] LABS: TSH reflex Free T4 0.07 uIU/mL (0.32-4.0); Vitamin D 25-OH Total 7.3 ng/mL (>30)
[2022-03-11 11:59] LABS: Folate 2.5 ng/mL (> or = 4.0); Vitamin B12 209 pg/mL (200-900)
[2022-03-11 12:23] LABS: Free T4 (Free Thyroxine) 1.75 ng/dL (0.71-1.85)
== END 2022-03-11 09:19 | disposition home or self-care (01) ==
LOC: HO.LAB 09:18
PROVIDERS: Absent Provider Nurse Practitioner Family; PCP Nurse Practitioner Family; Visit Provider Internal Medicine
DX: Z79.01 Long term (current) use of anticoagulants (principal); Z86.73 Personal history of transient ischemic attack (TIA), and cerebral infarction without residual deficits; Z86.711 Personal history of pulmonary embolism; Z51.81 Encounter for therapeutic drug level monitoring; E55.9 Vitamin D deficiency, unspecified; E03.9 Hypothyroidism, unspecified; E78.5 Hyperlipidemia, unspecified; Z76.89 Persons encountering health services in other specified circumstances
CPT/HCPCS: 36415; 80053; 80061; 82306; 82607; 82746; 84439; 84443; 85025; 85610; 99211

== ENCOUNTER → 2022-03-12 09:44 | Outpatient (BNVA) | payer MEDICARE, SELFPAY | PROVIDERS: PCP Nurse Practitioner Family; Visit Provider Surgery Vascular Surgery | DX: I83.11 Varicose veins of right lower extremity with inflammation (principal) | CPT/HCPCS: 99212 ==

== ENCOUNTER → 2022-03-27 09:16 | Outpatient (BNVA) | payer MEDICARE, SELFPAY | PROVIDERS: PCP Nurse Practitioner Family; Visit Provider Internal Medicine | DX: Z86.73 Personal history of transient ischemic attack (TIA), and cerebral infarction without residual deficits (principal); Z86.718 Personal history of other venous thrombosis and embolism; Z79.01 Long term (current) use of anticoagulants; Z51.81 Encounter for therapeutic drug level monitoring | CPT/HCPCS: 85610; 99211 ==

== ENCOUNTER → 2022-04-08 09:01 | Outpatient (BNVA) | payer MEDICARE, SELFPAY | PROVIDERS: PCP Nurse Practitioner Family; Visit Provider Internal Medicine | DX: Z86.73 Personal history of transient ischemic attack (TIA), and cerebral infarction without residual deficits (principal); Z86.718 Personal history of other venous thrombosis and embolism; Z79.01 Long term (current) use of anticoagulants; Z51.81 Encounter for therapeutic drug level monitoring | CPT/HCPCS: 85610; 99211 ==

== ENCOUNTER 2022-04-22 08:20 | Outpatient (REF) | payer MEDICARE, SELFPAY ==
[2022-04-22 10:23] LABS: TSH reflex Free T4 0.16 uIU/mL (0.32-4.0)
[2022-04-22 11:23] LABS: Free T4 (Free Thyroxine) 1.53 ng/dL (0.71-1.85)
== END 2022-04-22 08:21 | disposition home or self-care (01) ==
LOC: HO.LAB 08:20
PROVIDERS: PCP Nurse Practitioner Family; Visit Provider Nurse Practitioner Family
DX: E03.9 Hypothyroidism, unspecified (principal); Z86.718 Personal history of other venous thrombosis and embolism; Z86.711 Personal history of pulmonary embolism; Z79.01 Long term (current) use of anticoagulants
CPT/HCPCS: 36415; 84439; 84443; 85610; 99211

== ENCOUNTER → 2022-04-23 09:51 | Outpatient (BNVA) | payer MEDICARE, SELFPAY | PROVIDERS: PCP Nurse Practitioner Family; Visit Provider Surgery Vascular Surgery | DX: L97.919 Non-pressure chronic ulcer of unspecified part of right lower leg with unspecified severity (principal) | CPT/HCPCS: 99212 ==

== ENCOUNTER → 2022-05-07 09:28 | Outpatient (BNVA) | payer MEDICARE, SELFPAY | PROVIDERS: PCP Nurse Practitioner Family; Visit Provider Physician Assistant | DX: M17.0 Bilateral primary osteoarthritis of knee (principal) | CPT/HCPCS: 20610; 99212; J1020 ==

== ENCOUNTER → 2022-05-13 08:44 | Outpatient (BNVA) | payer MEDICARE, SELFPAY | PROVIDERS: PCP Nurse Practitioner Family; Visit Provider Internal Medicine | DX: Z86.73 Personal history of transient ischemic attack (TIA), and cerebral infarction without residual deficits (principal); Z86.718 Personal history of other venous thrombosis and embolism; Z79.01 Long term (current) use of anticoagulants; Z51.81 Encounter for therapeutic drug level monitoring | CPT/HCPCS: 85610; 99211 ==

== ENCOUNTER → 2022-05-20 08:57 | Outpatient (BNVA) | payer MEDICARE, SELFPAY | PROVIDERS: PCP Nurse Practitioner Family; Visit Provider Internal Medicine | DX: Z86.73 Personal history of transient ischemic attack (TIA), and cerebral infarction without residual deficits (principal); Z86.718 Personal history of other venous thrombosis and embolism; Z51.81 Encounter for therapeutic drug level monitoring; Z79.01 Long term (current) use of anticoagulants | CPT/HCPCS: 85610; 99211 ==

== ENCOUNTER → 2022-05-27 09:15 | Outpatient (BNVA) | payer MEDICARE, SELFPAY | PROVIDERS: PCP Nurse Practitioner Family; Visit Provider Internal Medicine | DX: Z86.73 Personal history of transient ischemic attack (TIA), and cerebral infarction without residual deficits (principal); Z86.718 Personal history of other venous thrombosis and embolism; Z79.01 Long term (current) use of anticoagulants; Z51.81 Encounter for therapeutic drug level monitoring | CPT/HCPCS: 85610; 99211 ==

== ENCOUNTER → 2022-06-10 08:25 | Outpatient (BNVA) | payer MEDICARE, SELFPAY | PROVIDERS: PCP Nurse Practitioner Family; Visit Provider Internal Medicine | DX: I69.30 Unspecified sequelae of cerebral infarction (principal); Z86.718 Personal history of other venous thrombosis and embolism; Z79.01 Long term (current) use of anticoagulants; Z51.81 Encounter for therapeutic drug level monitoring | CPT/HCPCS: 85610; 99211 ==

== ENCOUNTER → 2022-06-24 08:41 | Outpatient (BNVA) | payer MEDICARE, SELFPAY | PROVIDERS: PCP Nurse Practitioner Family; Visit Provider Internal Medicine | DX: Z86.73 Personal history of transient ischemic attack (TIA), and cerebral infarction without residual deficits (principal); Z86.718 Personal history of other venous thrombosis and embolism; Z79.01 Long term (current) use of anticoagulants; Z51.81 Encounter for therapeutic drug level monitoring | CPT/HCPCS: 85610; 99211 ==

== ENCOUNTER 2022-07-07 07:19 | Outpatient (REF) | payer MEDICARE, SELFPAY ==
[2022-07-07 08:52] LABS: Anion Gap 12 (12-20); Blood Urea Nitrogen 24 mg/dL (9-16); Carbon Dioxide 27 mmol/L (22-29); Chloride 106 mmol/L (96-108); Estimated Glomerular Filt Rate 42; Potassium 4.6 mmol/L (3.3-5.1); Sodium 140 mmol/L (135-145)
[2022-07-07 08:53] LABS: Alanine Aminotransferase 10 U/L (0-31); Albumin Level 3.9 g/dL (3.5-5.0); Alkaline Phosphatase 92 U/L (39-117); Aspartate Amino Transferase 20 U/L (5-31); Bilirubin Total 0.5 mg/dL (0.0-1.0); Calcium 9.1 mg/dL (8.4-10.2); Cholesterol 210 mg/dL; Glucose Fasting 90 mg/dL (60-99); HDL Cholesterol 50 mg/dL; LDL Cholesterol Calculated 134 mg/dl; Total Protein 7.5 g/dL (6.5-8.0); Triglycerides 131 mg/dL
[2022-07-07 09:09] LABS: TSH reflex Free T4 0.94 uIU/mL (0.32-4.0); Vitamin D 25-OH Total 28.7 ng/mL (>30)
== END 2022-07-07 07:20 | disposition home or self-care (01) ==
LOC: HO.LAB 07:19
PROVIDERS: PCP Nurse Practitioner Family; Visit Provider Nurse Practitioner Family
DX: E03.9 Hypothyroidism, unspecified (principal); R79.89 Other specified abnormal findings of blood chemistry; E78.5 Hyperlipidemia, unspecified
CPT/HCPCS: 36415; 80053; 80061; 82306; 84443

== ENCOUNTER → 2022-07-15 08:20 | Outpatient (BNVA) | payer MEDICARE, SELFPAY | PROVIDERS: PCP Nurse Practitioner Family; Visit Provider Internal Medicine | DX: Z86.73 Personal history of transient ischemic attack (TIA), and cerebral infarction without residual deficits (principal); Z86.718 Personal history of other venous thrombosis and embolism; Z79.01 Long term (current) use of anticoagulants; Z51.81 Encounter for therapeutic drug level monitoring | CPT/HCPCS: 85610; 99211 ==

== ENCOUNTER → 2022-08-12 08:24 | Outpatient (BNVA) | payer MEDICARE, SELFPAY | PROVIDERS: PCP Nurse Practitioner Family; Visit Provider Internal Medicine | DX: I69.30 Unspecified sequelae of cerebral infarction (principal); Z86.718 Personal history of other venous thrombosis and embolism; Z79.01 Long term (current) use of anticoagulants; Z51.81 Encounter for therapeutic drug level monitoring | CPT/HCPCS: 85610; 99211 ==

== ENCOUNTER → 2022-09-07 10:39 | Outpatient (BNVA) | payer MEDICARE, SELFPAY | PROVIDERS: PCP Nurse Practitioner Family; Visit Provider Internal Medicine | DX: Z86.73 Personal history of transient ischemic attack (TIA), and cerebral infarction without residual deficits (principal); Z86.718 Personal history of other venous thrombosis and embolism; Z79.01 Long term (current) use of anticoagulants; Z51.81 Encounter for therapeutic drug level monitoring | CPT/HCPCS: 85610; 99211 ==

== ENCOUNTER → 2022-09-15 09:03 | Outpatient (BNVA) | payer MEDICARE, SELFPAY | PROVIDERS: PCP Nurse Practitioner Family; Visit Provider Surgery Vascular Surgery | DX: I89.0 Lymphedema, not elsewhere classified (principal) | CPT/HCPCS: 99212 ==

== ENCOUNTER 2022-10-03 07:39 | Outpatient (REF) | payer MEDICARE, SELFPAY ==
[2022-10-03 07:51] LABS: MANUAL DIFF FLAG NO
[2022-10-03 08:05] LABS: Basophils Percent Auto 0.6 % (0-2); Hematocrit 41.4 % (37.0-47.0); Hemoglobin 13.3 g/dl (12.0-16.0); Imm Gran Abs Auto 0.01 X10*3/uL (0.00-0.03); Imm Gran Pct Auto 0.2 % (0.0-0.4); Lymphocytes Absolute Auto 1.8 X10*3/uL (1.2-4.9); Lymphocytes Percent Auto 34.5 % (20-40); Mean Corpuscular HGB Conc 32.1 g/dl (31.0-35.0); Mean Corpuscular Hemoglobin 28.6 pg (27.0-33.0); Mean Platelet Volume 10.5 fL (9.4-12.3); Monocytes Absolute Auto 0.4 X10*3/uL (0.1-1.2); Neutrophils Absolute Auto 3.1 x10*3/uL (2.0-8.3); Neutrophils Percent Auto 57.7 % (45-73); Platelet Count 217 X10*3/uL (160-400); Red Blood Count 4.65 X10*6/uL (4.20-5.50); Red Cell Distribution Width 13.4 % (11.0-16.0); White Blood Count 5.3 X10*3/uL (4.8-10.8)
[2022-10-03 08:33] LABS: Alanine Aminotransferase 9 U/L (0-31); Albumin Level 4.1 g/dL (3.5-5.0); Alkaline Phosphatase 77 U/L (39-117); Anion Gap 14 (12-20); Aspartate Amino Transferase 22 U/L (5-31); Bilirubin Total 0.6 mg/dL (0.0-1.0); Blood Urea Nitrogen 19 mg/dL (9-16); Calcium 9.1 mg/dL (8.4-10.2); Carbon Dioxide 25 mmol/L (22-29); Chloride 107 mmol/L (96-108); Cholesterol 183 mg/dL; Estimated Glomerular Filt Rate 37; Glucose Fasting 90 mg/dL (60-99); HDL Cholesterol 46 mg/dL; LDL Cholesterol Calculated 117 mg/dl; Potassium 4.2 mmol/L (3.3-5.1); Sodium 142 mmol/L (135-145); Total Protein 7.3 g/dL (6.5-8.0); Triglycerides 103 mg/dL
[2022-10-03 08:48] LABS: TSH reflex Free T4 0.54 uIU/mL (0.32-4.0); Vitamin D 25-OH Total 44.8 ng/mL (>30)
== END 2022-10-03 07:40 | disposition home or self-care (01) ==
LOC: HO.LAB 07:39
PROVIDERS: PCP Nurse Practitioner Family; Visit Provider Nurse Practitioner Family
DX: E03.9 Hypothyroidism, unspecified (principal); E78.5 Hyperlipidemia, unspecified; E55.9 Vitamin D deficiency, unspecified
CPT/HCPCS: 36415; 80053; 80061; 82306; 84443; 85025

== ENCOUNTER → 2022-10-07 08:30 | Outpatient (BNVA) | payer MEDICARE, SELFPAY | PROVIDERS: PCP Nurse Practitioner Family; Visit Provider Internal Medicine | DX: Z86.73 Personal history of transient ischemic attack (TIA), and cerebral infarction without residual deficits (principal); Z86.718 Personal history of other venous thrombosis and embolism; Z79.01 Long term (current) use of anticoagulants; Z51.81 Encounter for therapeutic drug level monitoring | CPT/HCPCS: 85610; 99211 ==

== ENCOUNTER → 2022-10-22 15:10 | Outpatient (BNVA) | payer MEDICARE, SELFPAY | PROVIDERS: PCP Nurse Practitioner Family; Visit Provider Surgery Vascular Surgery | DX: L03.115 Cellulitis of right lower limb (principal) | CPT/HCPCS: 99212 ==

== ENCOUNTER → 2022-11-04 08:33 | Outpatient (BNVA) | payer MEDICARE, SELFPAY | PROVIDERS: PCP Nurse Practitioner Family; Visit Provider Internal Medicine | DX: Z86.73 Personal history of transient ischemic attack (TIA), and cerebral infarction without residual deficits (principal); Z86.718 Personal history of other venous thrombosis and embolism; Z79.01 Long term (current) use of anticoagulants; Z51.81 Encounter for therapeutic drug level monitoring | CPT/HCPCS: 85610; 99211 ==

== ENCOUNTER → 2022-11-09 08:40 | Outpatient (BNVA) | payer MEDICARE, SELFPAY | PROVIDERS: PCP Nurse Practitioner Family; Visit Provider Physician Assistant | DX: M17.0 Bilateral primary osteoarthritis of knee (principal) | CPT/HCPCS: 20610; 99212; J1040 ==

== ENCOUNTER → 2022-11-12 09:55 | Outpatient (BNVA) | payer MEDICARE, SELFPAY | PROVIDERS: PCP Nurse Practitioner Family; Visit Provider Surgery Vascular Surgery | DX: L03.115 Cellulitis of right lower limb (principal); I69.30 Unspecified sequelae of cerebral infarction; Z86.718 Personal history of other venous thrombosis and embolism; Z79.01 Long term (current) use of anticoagulants; Z51.81 Encounter for therapeutic drug level monitoring | CPT/HCPCS: 85610; 99211; 99212 ==

== ENCOUNTER → 2022-12-24 08:15 | Outpatient (BNVA) | payer MEDICARE, SELFPAY | PROVIDERS: PCP Nurse Practitioner Family; Visit Provider Internal Medicine | DX: I69.30 Unspecified sequelae of cerebral infarction (principal); Z86.718 Personal history of other venous thrombosis and embolism; Z79.01 Long term (current) use of anticoagulants; Z51.81 Encounter for therapeutic drug level monitoring | CPT/HCPCS: 85610; 99211 ==

== ENCOUNTER 2023-01-05 07:30 | Outpatient (REF) | payer MEDICARE, SELFPAY ==
[2023-01-05 09:28] LABS: Alanine Aminotransferase 12 U/L (0-31); Albumin Level 3.7 g/dL (3.5-5.0); Alkaline Phosphatase 77 U/L (39-117); Anion Gap 11 (12-20); Aspartate Amino Transferase 22 U/L (5-31); Bilirubin Total 0.5 mg/dL (0.0-1.0); Blood Urea Nitrogen 18 mg/dL (9-16); Calcium 9.2 mg/dL (8.4-10.2); Carbon Dioxide 28 mmol/L (22-29); Chloride 106 mmol/L (96-108); Cholesterol 179 mg/dL; Estimated Glomerular Filt Rate 49; Glucose Fasting 84 mg/dL (60-99); HDL Cholesterol 44 mg/dL; LDL Cholesterol Calculated 107 mg/dl; Potassium 3.9 mmol/L (3.3-5.1); Sodium 141 mmol/L (135-145); Total Protein 7.3 g/dL (6.5-8.0); Triglycerides 141 mg/dL
[2023-01-05 09:46] LABS: TSH reflex Free T4 0.16 uIU/mL (0.32-4.0)
[2023-01-05 10:20] LABS: Free T4 (Free Thyroxine) 1.33 ng/dL (0.71-1.85)
== END 2023-01-05 07:31 | disposition home or self-care (01) ==
LOC: HO.LAB 07:30
PROVIDERS: PCP Nurse Practitioner Family; Visit Provider Nurse Practitioner Family
DX: E03.9 Hypothyroidism, unspecified (principal); N18.30 Chronic kidney disease, stage 3 unspecified; E78.5 Hyperlipidemia, unspecified
CPT/HCPCS: 36415; 80053; 80061; 84439; 84443

== ENCOUNTER 2023-01-07 10:03 | Outpatient (AMB) | payer MEDICARE, SELFPAY ==
[2023-01-07 10:05] VITALS: BP 130/70; PULSE 66; O2SAT 98; BMI 28.9
--- NOTE | 2023-01-07 10:05 | A.OFFPC_ITS ---
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 Assigner Required: No Allergies No Known Allergies [No Known Allergies*] Allergy (Verified 01/07/23 10:21) Medication List - Last Reconciled 01/07/23 by MILTON Christensen aspirin 81 mg PO DAILY darifenacin ER 15 mg PO DAILY folic acid 0.4 mg PO DAILY furosemide 20 mg PO DAILY levothyroxine 112 mcg PO DAILY nystatin-triamcinolone 100,000-0.1 unit/g-% 1 appl topical DAILY nystatin-triamcinolone 100,000-0.1 unit/g-% 1 appl topical DAILY polyethylene glycol 3350 (Miralax) 17 grams PO DAILY PRN sennosides (senna) 8.6 mg PO BID simvastatin 40 mg PO BEDTIME triamcinolone acetonide 0.1% 1 appl topical DAILY warfarin 2.5 mg See Protocol PO DAILY Tobacco use date assessed: 01/07/23 Fall risk assessment: No Falls in past year Last assessed Fall Risk: 01/07/23 Dental Screening Dental Screen Date: 01/07/23 Did you have a dental visit in the last 12 months?: No Did you have a dental problem in the last 6 months where you did not have access to dental care?: No HPI F/U CKD, HLD, thyroid HPI Details Patient is a 72-year-old female who presents today for a routine follow-up and to review blood work results.? Medical history significant for hyperlipidemia, hypothyroidism, overactive bladder, bilateral knee osteoarthritis - followed by Orthopedics, lymphedema - followed by Dr. Billings, bilateral carotid stenosis - followed by Dr. Billings, history of DVT and stroke.? Patient is compliant with medications. She ambulates with a cane.?Patient denies shortness of breath or chest pain. ? 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 How often do you have a drink containing alcohol?: Never 2. How many drinks containing alcohol do you have on a typical day when you are drinking?: 1 or 2 (0) 3. How often do you have six or more drinks on one occasion?: Never Total Score: 0 Score Reviewed/Action Taken: No CANDACE-7 AMB Questionnaire CANDACE-7 Date CANDACE - 7 assessed: 07/07/22 Source: Developed by Drs. Pelon Castillo, Cristina Ty, Calvin Licea and colleagues, with an educational suyapa from [employer]. Review of Systems Const Denies body aches, Denies chills, Denies fever(s) and Denies headache(s) Eyes Denies change in vision ENT Denies dizziness, Denies otalgia, Denies headache(s), Denies nasal discharge, Denies sinus pain and Denies sore throat Card Denies chest pain, Denies edema, Reports leg edema (Lymphedema), Denies lightheadedness and Denies dyspnea Resp Denies chest congestion, Denies cough and Denies dyspnea GI Denies abdominal pain, Denies constipation, Denies diarrhea, Denies nausea and Denies vomiting Denies hematuria, Denies dysuria and Denies flank pain Musc Denies myalgias, Reports arthralgias, Denies joint swelling, Denies numbness and Denies tingling Skin/Breast Denies lesions and Denies rash Neuro Denies dizziness, Denies headache(s), Denies numbness and Denies tingling Physical exam (Primary Care) Vital Signs: Last Vital Signs Pulse 66 01/07/23 10:05 BP 130/70 01/07/23 10:05 Pulse Ox 98 01/07/23 10:05 Oxygen Delivery Method Room Air 01/07/23 10:05 BMI result Body Mass Index 28.9 Tobacco/Smoking Status: Tobacco use Status Tobacco use date assessed 01/07/23 01/07/23 10:06 Patient Tobacco Use Status Never used Tobacco 01/07/23 10:06 e-Cigarette/Vaping Use Never Used 01/07/23 10:06 Thrive Assessment: Date of Thrive Assessment Date Thrive assessed 07/07/22 01/07/23 10:06 Const Other: Patient ambulates with a cane General: cooperative and no acute distress Orientation/consciousness: patient oriented x3 HENMT Head: Yes normocephalic and Yes atraumatic Face and sinus: Yes sinuses nontender Mouth: oropharynx normal and moist mucous membranes Throat: Yes posterior oropharynx normal Eyes General: appearance normal, both eyes and all related structures Pupils: Equal, round and reactive pupils present EOM: EOMs intact bilaterally Neck Neck: Yes normal visual inspection, Yes full ROM and Yes no lymphadenopathy Thyroid: Thyroid normal Resp Effort & Inspection: normal respiratory effort and able to speak in complete sentences Auscultation: clear to auscultation bilaterally, no crackles, no rales, no rhonchi and no wheezes Cardio Rate: regular rate Rhythm: regular rhythm Heart sounds: S1 normal heart sound present, S2 normal heart sound present and no murmurs GI Palpation (GI): Soft to palpation, not firm, nontender, no guarding, not rigid and no hepatosplenomegaly Auscultation: normal bowel sounds General: No CVA tenderness Back/Spine/Pelvis Back: No CVA tenderness Skin General skin exam: no rashes or lesions noted Neuro General: patient oriented x3 Cranial nerves: Yes Equal, round and reactive pupils present Gait exam (Neuro): Normal gait present Extrem Other: Patient has compression stockings to BLE General: Yes full ROM Assessment and Plan Assessment & Plan (1) residential (current) use of anticoagulants: 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 urology Annabelle Toledo NP Darifenacin 15 mg daily (5) Lymphedema: Code(s): I89.0 - Lymphedema, not elsewhere classified Plan: Lasix 20 mg daily Continue compression stockings Continue lymphedema pumps b.i.d. Continue to follow-up with Dr. Billings (6) Carotid stenosis, bilateral: Code(s): I65.23 - Occlusion and stenosis of bilateral carotid arteries Plan: Continue to follow-up with Dr. Billings for annual carotid ultrasound (7) History of DVT (deep vein thrombosis): Comment: LLE about 2016 Code(s): Z86.718 - Personal history of other venous thrombosis and embolism Plan: Patient reports being on Coumadin since being diagnosed with left lower extremity DVT in 2015. (8) Stroke: Comment: Embolic cerebral infarct 2019 Code(s): I63.9 - Cerebral infarction, unspecified Plan: Patient reports that she was seen by Dr. Mckinney in the past and no need to see Neurology anymore per patient Continue Coumadin Aspirin 81 mg daily Simvastatin 40 mg at bedtime (9) CKD (chronic kidney disease) stage 3, GFR 30-59 ml/min: Code(s): N18.30 - Chronic kidney disease, stage 3 unspecified Plan: Creatinine 1.10, GFR 49 12/2022 Avoid nephrotoxic medications Continue to monitor Plan Keep appointment with PCP as scheduled or follow-up sooner as needed Orders: Orders Vitamin B12 and Folate 3 Months E03.9 - Hypothyroidism, unspecified Comprehensive [place]. Panel Fast 3 Months N18.30 - Chronic kidney disease, stage 3 unspecified Lipid Panel 3 Months E78.5 - Hyperlipidemia, unspecified TSH reflex Free T4 3 Months E03.9 - Hypothyroidism, unspecified Microalbumin, Random (w Creat) 3 Months N18.30 - Chronic kidney disease, stage 3 unspecified Complete Blood Count Auto Diff 3 Months N18.30 - Chronic kidney disease, stage 3 unspecified Medications: New levothyroxine 100 mcg PO DAILY 90 tabs 0RF E03.9 - Hypothyroidism, unspecified Discontinued levothyroxine Discontinued Reason: Doctor's Order 112 mcg PO DAILY 90 tabs 1RF E03.9 - Hypothyroidism, unspecified Coding Level of Care Code Est Pt Level 4 (88912) 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
== END 2023-01-07 10:32 | disposition home or self-care (01) ==
PROVIDERS: PCP Nurse Practitioner Family; Visit Provider Nurse Practitioner Family
DX: E03.9 Hypothyroidism, unspecified (principal); Z79.01 Long term (current) use of anticoagulants; Z86.718 Personal history of other venous thrombosis and embolism; N18.30 Chronic kidney disease, stage 3 unspecified; I63.9 Cerebral infarction, unspecified; E78.5 Hyperlipidemia, unspecified; N32.81 Overactive bladder; I89.0 Lymphedema, not elsewhere classified; I65.23 Occlusion and stenosis of bilateral carotid arteries
CPT/HCPCS: 99214

== ENCOUNTER 2023-01-20 08:34 | Outpatient (AMB) | payer MEDICARE, SELFPAY ==
--- NOTE | 2023-01-20 08:40 | MHC.OFFVISCO ---
Intake Intake Visit Reasons: Anticoagulation Allergies No Known Allergies [No Known Allergies*] Allergy (Verified 01/20/23 08:35) Medication List - Last Reconciled 01/20/23 by Kiera Pollock RN aspirin 81 mg PO DAILY darifenacin ER 15 mg PO DAILY folic acid 0.4 mg PO DAILY furosemide 20 mg PO DAILY levothyroxine 100 mcg PO DAILY nystatin-triamcinolone 100,000-0.1 unit/g-% 1 appl topical DAILY nystatin-triamcinolone 100,000-0.1 unit/g-% 1 appl topical DAILY polyethylene glycol 3350 (Miralax) 17 grams PO DAILY PRN sennosides (senna) 8.6 mg PO BID simvastatin 40 mg PO BEDTIME triamcinolone acetonide 0.1% 1 appl topical DAILY warfarin 2.5 mg See Protocol PO DAILY Nursing Note INR 3.9-? out of therapeutic range Medications and supplements reviewed Patient status: no c.o Medications or supplements: levothyroxine reduced to 100mcg daily- will start tomm Diet: appetite is good Denies any signs and symptoms of bleeding or clotting or unusual bruising Bleeding, bruising, clotting discussed Nutritional guidance given: eat greens- will eat cooked cabbage Dose: hold dose today then cont reg dosing- 5mg x 2, 2.5mg x 5 F/U INR Date : 2 weeks Patient verbalizing understanding of instructions given. Anti-Coag Initial Assessment Social Hx Patient Tobacco Use Status: Never used Tobacco alcohol intake: never Cardiovascular Hx: Varicose Veins Lung Disease HX: DVT/PE Endocrine Hx: Thyroid Disease Musculoskeletal Hx: Arthritis Blood Disorder Hx: Hyperlipidemia Hx: Kidney Disease, Bladder Disorders (overactive bladder) and Other (hx hematuria) Neurological Hx: Stroke/TIA Cancer HX: No Psych. 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
[2023-01-20 08:41] LABS: Prothrombin Time Whole Bld POC 46.2 sec (11.1-13.5); ~PT, ~INR - Anti Coag Clinic 3.9 (0.9-1.1)
== END 2023-01-20 08:49 | disposition home or self-care (01) ==
LOC: HO.ACS 08:34
PROVIDERS: PCP Nurse Practitioner Family; Visit Provider Internal Medicine
DX: Z79.01 Long term (current) use of anticoagulants (principal)

== ENCOUNTER → 2023-01-20 08:34 | Outpatient (BNVA) | payer MEDICARE, SELFPAY | PROVIDERS: PCP Nurse Practitioner Family; Visit Provider Internal Medicine | DX: Z86.718 Personal history of other venous thrombosis and embolism (principal); Z79.01 Long term (current) use of anticoagulants; Z51.81 Encounter for therapeutic drug level monitoring | CPT/HCPCS: 85610; 99211 ==

== ENCOUNTER 2023-02-03 08:28 | Outpatient (AMB) | payer MEDICARE, SELFPAY ==
[2023-02-03 08:34] LABS: Prothrombin Time Whole Bld POC 28.7 sec (11.1-13.5); ~PT, ~INR - Anti Coag Clinic 2.4 (0.9-1.1)
--- NOTE | 2023-02-03 09:15 | MHC.OFFVISCO ---
Intake Intake Visit Reasons: Anticoagulation Allergies No Known Allergies [No Known Allergies*] Allergy (Verified 02/03/23 08:30) Medication List - Last Reconciled 02/03/23 by Francesca Donohue RN aspirin 81 mg PO DAILY darifenacin ER 15 mg PO DAILY folic acid 0.4 mg PO DAILY furosemide 20 mg PO DAILY levothyroxine 100 mcg PO DAILY nystatin-triamcinolone 100,000-0.1 unit/g-% 1 appl topical DAILY polyethylene glycol 3350 (Miralax) 17 grams PO DAILY PRN sennosides (senna) 8.6 mg PO BID simvastatin 40 mg PO BEDTIME triamcinolone acetonide 0.1% 1 appl topical DAILY warfarin 2.5 mg See Protocol PO DAILY Nursing Note NO CP,SOB,DIET/MED CHANGES,FALLS OR SX OF BLEEDING. CONTINUE PRESENT DOSE AND FOLLOW-UP IN 4 WEEKS. GOOD UNDERSTANDING OF DOSING INSTR. Anti-Coag Initial Assessment Social Hx Patient Tobacco Use Status: Never used Tobacco alcohol intake: never Cardiovascular Hx: Varicose Veins Lung Disease HX: DVT/PE Endocrine Hx: Thyroid Disease Musculoskeletal Hx: Arthritis Blood Disorder Hx: Hyperlipidemia Hx: Kidney Disease, Bladder Disorders (overactive bladder) and Other (hx hematuria) Neurological Hx: Stroke/TIA Cancer HX: No Psych. 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
== END 2023-02-03 09:17 | disposition home or self-care (01) ==
LOC: HO.ACS 08:28
PROVIDERS: PCP Nurse Practitioner Family; Visit Provider Internal Medicine
DX: Z79.01 Long term (current) use of anticoagulants (principal)

== ENCOUNTER → 2023-02-03 08:28 | Outpatient (BNVA) | payer MEDICARE, SELFPAY | PROVIDERS: PCP Nurse Practitioner Family; Visit Provider Internal Medicine | DX: Z86.73 Personal history of transient ischemic attack (TIA), and cerebral infarction without residual deficits (principal); Z86.718 Personal history of other venous thrombosis and embolism; Z79.01 Long term (current) use of anticoagulants; Z51.81 Encounter for therapeutic drug level monitoring | CPT/HCPCS: 85610; 99211 ==

== ENCOUNTER 2023-03-03 08:37 | Outpatient (AMB) | payer MEDICARE, SELFPAY ==
[2023-03-03 08:46] LABS: Prothrombin Time Whole Bld POC 46.6 sec (11.1-13.5); ~PT, ~INR - Anti Coag Clinic 3.9 (0.9-1.1)
--- NOTE | 2023-03-03 09:01 | MHC.OFFVISCO ---
Intake Intake Visit Reasons: Anticoagulation Allergies No Known Allergies [No Known Allergies*] Allergy (Verified 03/03/23 08:40) Medication List - Last Reconciled 03/03/23 by Vicenta Jung RN aspirin 81 mg PO DAILY darifenacin ER 15 mg PO DAILY folic acid 0.4 mg PO DAILY furosemide 20 mg PO DAILY levothyroxine 100 mcg PO DAILY nystatin-triamcinolone 100,000-0.1 unit/g-% 1 appl topical DAILY polyethylene glycol 3350 (Miralax) 17 grams PO DAILY PRN sennosides (senna) 8.6 mg PO BID simvastatin 40 mg PO BEDTIME triamcinolone acetonide 0.1% 1 appl topical DAILY warfarin 2.5 mg See Protocol PO DAILY Nursing Note INR 3.9? out of therapeutic range Medications and supplements reviewed Patient status: pt thyroid functions show shyper thyroid and levothyroxie has been decreased- should be having repeat labs 4-6 weeks post dose change, denies any heart palps, or s/sx of hyper thyroid Medications or supplements: no recent changes Diet: good for her - she does not like any fruits or vegetables. only cooked cabage Denies any signs and symptoms of bleeding or clotting or unusual bruising Bleeding, bruising, clotting discussed Nutritional guidance given: eat as healthy as you can Dose: hold today then decrease weekly dose next week 5mg x 1 day/ 2.5mg x 6 days F/U INR Date: 2 wks ?? Patient verbalizing understanding of instructions given. msg sent to PCP about thyroid and labile INR Anti-Coag Initial Assessment Social Hx Patient Tobacco Use Status: Never used Tobacco alcohol intake: never Cardiovascular Hx: Varicose Veins Lung Disease HX: DVT/PE Endocrine Hx: Thyroid Disease Musculoskeletal Hx: Arthritis Blood Disorder Hx: Hyperlipidemia Hx: Kidney Disease, Bladder Disorders (overactive bladder) and Other (hx hematuria) Neurological Hx: Stroke/TIA Cancer HX: No Psych. 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
== END 2023-03-03 09:06 | disposition home or self-care (01) ==
LOC: HO.ACS 08:37
PROVIDERS: PCP Nurse Practitioner Family; Visit Provider Internal Medicine
DX: Z79.01 Long term (current) use of anticoagulants (principal)

== ENCOUNTER → 2023-03-03 08:37 | Outpatient (BNVA) | payer MEDICARE, SELFPAY | PROVIDERS: PCP Nurse Practitioner Family; Visit Provider Internal Medicine | DX: Z86.73 Personal history of transient ischemic attack (TIA), and cerebral infarction without residual deficits (principal); Z86.718 Personal history of other venous thrombosis and embolism; Z79.01 Long term (current) use of anticoagulants; Z51.81 Encounter for therapeutic drug level monitoring | CPT/HCPCS: 85610; 99211 ==

== ENCOUNTER 2023-03-17 08:22 | Outpatient (AMB) | payer MEDICARE, SELFPAY ==
--- NOTE | 2023-03-17 08:32 | MHC.OFFVISCO ---
Intake Intake Visit Reasons: Anticoagulation Allergies No Known Allergies [No Known Allergies*] Allergy (Verified 03/17/23 08:27) Medication List - Last Reconciled 03/17/23 by Kiera Pollock RN aspirin 81 mg PO DAILY darifenacin ER 15 mg PO DAILY folic acid 0.4 mg PO DAILY furosemide 20 mg PO DAILY levothyroxine 100 mcg PO DAILY nystatin-triamcinolone 100,000-0.1 unit/g-% 1 appl topical DAILY polyethylene glycol 3350 (Miralax) 17 grams PO DAILY PRN sennosides (senna) 8.6 mg PO BID simvastatin 40 mg PO BEDTIME triamcinolone acetonide 0.1% 1 appl topical DAILY warfarin 2.5 mg See Protocol PO DAILY Nursing Note INR: 2.5- in therapeutic range Medications and supplements reviewed No changes in health, diet, medications, or supplements, Denies any signs and symptoms of bleeding or bruising or clotting. Bleeding, bruising, clotting discussed Nutritional guidance given Dose: 5mg x 1, 2.5mg x 6 F/U INR: pt req 3 weeks pt is having labwork prior to pcp appt Patient verbalizes understanding of instructions given Anti-Coag Initial Assessment Social Hx Patient Tobacco Use Status: Never used Tobacco alcohol intake: never Cardiovascular Hx: Varicose Veins Lung Disease HX: DVT/PE Endocrine Hx: Thyroid Disease Musculoskeletal Hx: Arthritis Blood Disorder Hx: Hyperlipidemia Hx: Kidney Disease, Bladder Disorders (overactive bladder) and Other (hx hematuria) Neurological Hx: Stroke/TIA Cancer HX: No Psych. Illness/Depression: No Coding Level of Care Code Est Patient Level 1 Diagnoses Current use of anticoagulant therapy Z79.01 Results AMB INR Fingerstick AMB INR Fingerstick 2.5 Last Edit by Kiera Pollock RN on 03/17/23 08:34 Assessment & Plan Assessment & Plan (1) Current use of anticoagulant therapy: Code(s): Z79.01 - assisted (current) use of anticoagulants Category: Medical
[2023-03-17 08:34] LABS: Prothrombin Time Whole Bld POC 29.7 sec (11.1-13.5); ~PT, ~INR - Anti Coag Clinic 2.5 (0.9-1.1)
== END 2023-03-17 08:39 | disposition home or self-care (01) ==
LOC: HO.ACS 08:22
PROVIDERS: PCP Nurse Practitioner Family; Visit Provider Internal Medicine
DX: Z79.01 Long term (current) use of anticoagulants (principal)

== ENCOUNTER → 2023-03-17 08:22 | Outpatient (BNVA) | payer MEDICARE, SELFPAY | PROVIDERS: PCP Nurse Practitioner Family; Visit Provider Internal Medicine | DX: Z86.73 Personal history of transient ischemic attack (TIA), and cerebral infarction without residual deficits (principal); Z86.718 Personal history of other venous thrombosis and embolism; Z79.01 Long term (current) use of anticoagulants; Z51.81 Encounter for therapeutic drug level monitoring | CPT/HCPCS: 85610; 99211 ==

== ENCOUNTER 2023-04-03 08:25 | Outpatient (REF) | payer MEDICARE, SELFPAY ==
[2023-04-03 08:46] LABS: MANUAL DIFF FLAG NO
[2023-04-03 09:02] LABS: Basophils Percent Auto 0.7 % (0-2); Hematocrit 41.1 % (37.0-47.0); Hemoglobin 13.4 g/dl (12.0-16.0); Imm Gran Abs Auto 0.01 X10*3/uL (0.00-0.03); Imm Gran Pct Auto 0.2 % (0.0-0.4); Lymphocytes Absolute Auto 1.6 X10*3/uL (1.2-4.9); Lymphocytes Percent Auto 35.7 % (20-40); Mean Corpuscular HGB Conc 32.6 g/dl (31.0-35.0); Mean Corpuscular Hemoglobin 28.9 pg (27.0-33.0); Mean Corpuscular Volume 88.6 fL (80.0-98.0); Mean Platelet Volume 10.7 fL (9.4-12.3); Monocytes Absolute Auto 0.3 X10*3/uL (0.1-1.2); Monocytes Percent Auto 6.1 % (2-11); Neutrophils Absolute Auto 2.6 x10*3/uL (2.0-8.3); Neutrophils Percent Auto 57.3 % (45-73); Platelet Count 236 X10*3/uL (160-400); Red Blood Count 4.64 X10*6/uL (4.20-5.50); Red Cell Distribution Width 13.2 % (11.0-16.0); White Blood Count 4.5 X10*3/uL (4.8-10.8)
[2023-04-03 09:41] LABS: Alanine Aminotransferase 10 U/L (0-31); Albumin Level 3.9 g/dL (3.5-5.0); Alkaline Phosphatase 80 U/L (39-117); Anion Gap 12 (12-20); Aspartate Amino Transferase 23 U/L (5-31); Bilirubin Total 0.6 mg/dL (0.0-1.0); Blood Urea Nitrogen 18 mg/dL (9-16); Calcium 9.5 mg/dL (8.4-10.2); Carbon Dioxide 27 mmol/L (22-29); Chloride 106 mmol/L (96-108); Cholesterol 182 mg/dL (<200); Estimated Glomerular Filt Rate 46; Glucose Fasting 91 mg/dL (60-99); HDL Cholesterol 41 mg/dL (>40); LDL Cholesterol Calculated 110 mg/dL (<100); Potassium 4.7 mmol/L (3.3-5.1); Sodium 140 mmol/L (135-145); Total Protein 7.6 g/dL (6.5-8.0); Triglycerides 157 mg/dL (<150)
[2023-04-03 09:57] LABS: TSH reflex Free T4 0.86 uIU/mL (0.32-4.0)
[2023-04-03 10:12] LABS: Folate 4.9 ng/mL (> or = 4.0); Vitamin B12 308 pg/mL (200-900)
== END 2023-04-03 08:26 | disposition home or self-care (01) ==
LOC: HO.LAB 08:25
PROVIDERS: Visit Provider Nurse Practitioner Family
DX: E03.9 Hypothyroidism, unspecified (principal); N18.30 Chronic kidney disease, stage 3 unspecified; E53.8 Deficiency of other specified B group vitamins; E78.5 Hyperlipidemia, unspecified
CPT/HCPCS: 36415; 80053; 80061; 82607; 82746; 84443; 85025

== ENCOUNTER 2023-04-06 09:46 | Outpatient (AMB) | payer MEDICARE, SELFPAY ==
--- NOTE | 2023-04-06 09:47 | A.OFFPC_ITS ---
Vital Signs 04/06/23 09:48 Height 5 ft 6 in Weight 180 lb BMI 29.0 BP 142/80 H Blood Pressure Location Lt brachial Position Sitting Pulse 70 Pulse Source Pulse Oximeter Temp Source Skin Pulse Oximetry (%) 99 Oxygen Delivery Method Room Air Intake Visit Reasons: Annual Exam Intake Note: Patient is here today for a physical. 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 Allergies No Known Allergies [No Known Allergies*] Allergy (Verified 04/06/23 09:55) Medication List - Last Reconciled 04/06/23 by MILTON Christensen aspirin 81 mg PO DAILY darifenacin ER 15 mg PO DAILY folic acid 0.4 mg PO DAILY furosemide 20 mg PO DAILY levothyroxine 100 mcg PO DAILY nystatin-triamcinolone 100,000-0.1 unit/g-% 1 appl topical DAILY polyethylene glycol 3350 (Miralax) 17 grams PO DAILY PRN sennosides (senna) 8.6 mg PO BID simvastatin 40 mg PO BEDTIME triamcinolone acetonide 0.1% 1 appl topical DAILY warfarin 2.5 mg See Protocol PO DAILY Tobacco use date assessed: 04/06/23 Fall risk assessment: No Falls in past year Last assessed Fall Risk: 04/06/23 Dental Screening Dental Screen Date: 04/06/23 Did you have a dental visit in the last 12 months?: Yes Did you have a dental problem in the last 6 months where you did not have access to dental care?: No Was dental information given to patient?: Patient has dentist HPI Annual Exam HPI Details Patient is a 72-year-old female who presents today for physical exam and to review blood work results.? Medical history significant for hyperlipidemia, hypothyroidism, overactive bladder, bilateral knee osteoarthritis - followed by Orthopedics, lymphedema - followed by Dr. Billings, bilateral carotid stenosis - followed by Dr. Billings, history of DVT and stroke.? Patient is compliant with medications. She ambulates with a cane.?Patient denies shortness of breath or chest pain. Today we discussed patient's need for bone density screening, mammogram, colon cancer screening, tetanus and pneumonia vaccines. Patient has declined bone density screening and pneumonia vaccine. Patient declined colonoscopy although she is interested in a Cologuard. Patient will call for an eye exam. In addition, patient reports right ear feels blocked for the past some time. She also reports left thigh itchy rash for the past 1 week, she reports being sick couple weeks ago, denies any symptoms, reports rash is itchy, denies changes in shampoo, body wash, detergent, new foods. She did use moisturizing cream with improvement in pruritus. 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 1. Little interest or pleasure in doing things: not at all 2. Feeling down, depressed, or hopeless: not at all 3. Trouble falling or staying asleep, or sleeping too much: not at all 4. Feeling tired or having little energy: not at all 5. Poor appetite or overeating: not at all 6. Feeling bad about yourself - or that you are a failure or have let yourself or your family down: not at all 7. Trouble concentrating on things, such as reading the newspaper or watching television: not at all 8. Moving or speaking so slowly that other people could have noticed. Or the opposite - being so fidgety or restless that you have been moving around a lot more than usual: not at all 9. Thoughts that you would be better off or of hurting yourself in some way: not at all Total score: 0 Depression Screening Interpretation: Negative Depression Screening Done: Yes 25558 - PHQ-9 Billing: Yes Source: Developed by Drs. Pelon Castillo, Cristina Ty, Calvin Licea and colleagues, with an educational suyapa from [employer]. Thrive Questionnaire Date Thrive assessed: 07/07/22 AUDIT C Alcohol Use Questionnaire (AUDIT-C) 1. How often do you have a drink containing alcohol?: Never 2. How many drinks containing alcohol do you have on a typical day when you are drinking?: 1 or 2 (0) 3. How often do you have six or more drinks on one occasion?: Never Total Score: 0 Score Reviewed/Action Taken: No CANDACE-7 AMB Questionnaire CANDACE-7 Date CANDACE - 7 assessed: 04/06/23 Feeling nervous, anxious, or on edge: 0 = Not at all Not being able to stop or control worryin = Not at all Worrying too much about different things: 0 = Not at all Trouble relaxin = Not at all Being so restless that it is hard to sit still: 0 = Not at all Becoming easily annoyed or irritable: 0 = Not at all Feeling afraid as if something awful might happen: 0 = Not at all Total CANDACE-7 score (0-4 normal; 5-9 mild; 10-14 moderate; 15-21 severe): 0 Source: Developed by Drs. Pelon Castillo, Cristina Ty, Calvin Licea and colleagues, with an educational suyapa from [employer]. CANDACE-7 Assessment Billing CANDACE-7 Assessment Tool: CANDACE-7 Assessment 53486 Review of Systems Const Denies body aches, Denies chills, Denies fever(s) and Denies headache(s) Eyes Denies change in vision ENT Reports as per HPI, Denies dizziness, Denies otalgia, Denies headache(s), Denies nasal discharge, Denies sinus pain and Denies sore throat Card Denies chest pain, Denies edema, Reports leg edema (Lymphedema), Denies lightheadedness and Denies dyspnea Resp Denies chest congestion, Denies cough and Denies dyspnea GI Denies abdominal pain, Denies constipation, Denies diarrhea, Denies nausea and Denies vomiting Denies hematuria, Denies dysuria and Denies flank pain Musc Denies myalgias, Reports arthralgias, Denies joint swelling, Denies numbness and Denies tingling Skin/Breast Denies lesions and Reports rash Neuro Denies dizziness, Denies headache(s), Denies numbness and Denies tingling Physical exam (Primary Care) Vital Signs: Last Vital Signs Pulse 70 04/06/23 09:48 BP 142/80 H 04/06/23 09:48 Pulse Ox 99 04/06/23 09:48 Oxygen Delivery Method Room Air 04/06/23 09:48 BMI result Body Mass Index 29.0 Tobacco/Smoking Status: Tobacco use Status Tobacco use date assessed 04/06/23 04/06/23 09:52 Patient Tobacco Use Status Never used Tobacco 04/06/23 09:52 e-Cigarette/Vaping Use Never Used 04/06/23 09:52 PHQ-9: PHQ-9 Score PHQ-9: Total score 0 04/06/23 10:10 Depression Screening Interpretation: Negative Thrive Assessment: Date of Thrive Assessment Date Thrive assessed 07/07/22 04/06/23 09:52 Const Other: Patient ambulates with a cane General: cooperative and no acute distress Orientation/consciousness: patient oriented x3 HENMT Other: Right TM obstructed by cerumen, unable to visualize TM Head: Yes normocephalic and Yes atraumatic Ears: TM normal on the left Face and sinus: Yes sinuses nontender Mouth: oropharynx normal and moist mucous membranes Throat: Yes posterior oropharynx normal Eyes General: appearance normal, both eyes and all related structures Pupils: Equal, round and reactive pupils present EOM: EOMs intact bilaterally Neck Neck: Yes normal visual inspection, Yes full ROM and Yes no lymphadenopathy Thyroid: Thyroid normal Resp Effort & Inspection: normal respiratory effort and able to speak in complete sentences Auscultation: clear to auscultation bilaterally, no crackles, no rales, no rhonchi and no wheezes Cardio Rate: regular rate Rhythm: regular rhythm Heart sounds: S1 normal heart sound present, S2 normal heart sound present and no murmurs GI Palpation (GI): Soft to palpation, not firm, nontender, no guarding, not rigid and no hepatosplenomegaly Auscultation: normal bowel sounds General: No CVA tenderness Back/Spine/Pelvis Back: No CVA tenderness Skin Other: Left lateral thigh with mild slightly raised erythematous area about 10 cm x 4 cm, no signs of infection noted, nontender Neuro General: patient oriented x3 Cranial nerves: Yes Equal, round and reactive pupils present Gait exam (Neuro): Normal gait present Extrem Other: Patient has compression stockings to BLE General: Yes full ROM Immunizations tetanus-diphtheria toxoids-Td 2 Lf unit-2 Lf unit/0.5 mL IM suspension Performing Provider: MILTON Christensen [facility] Administered by: KERVIN Maher on 04/06/23 10:10 Dose Route Admin Location Dispensed Lot Number Expiration Date NDC Placement Manager 0.5 mL IM Left Deltoid 0.5 mL [id number] 10/25/23 [address]-8 [employer] VIS Given Date VIS Provided VIS Publication Date 04/06/23 Single Vaccine 21 Eligibility Eligibility Date Funding Source Not 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 Plan: Continue to follow-up with [facility], patient is on Coumadin (2) Hyperlipidemia: Code(s): E78.5 - Hyperlipidemia, unspecified Plan: LDL 110 03/2023, goal LDL less than 70 Continue simvastatin 40 mg at bedtime Start Zetia 10 mg daily-possible adverse reactions reviewed with the patient and when to notify provider Low-cholesterol diet (3) Hypothyroidism: Code(s): E03.9 - Hypothyroidism, unspecified Plan: TSH 0.86 03/2023 Continue levothyroxine to 100 mcg daily Continue to monitor (4) Overactive bladder: Code(s): N32.81 - Overactive bladder Plan: Continue to follow-up with [facility] urology Annabelle Toledo NP Darifenacin 15 mg daily (5) Lymphedema: Code(s): I89.0 - Lymphedema, not elsewhere classified Plan: Lasix 20 mg daily Continue compression stockings Continue lymphedema pumps b.i.d. Continue to follow-up with Dr. Billings (6) Carotid stenosis, bilateral: Code(s): I65.23 - Occlusion and stenosis of bilateral carotid arteries Plan: Continue to follow-up with Dr. Billnigs for annual carotid ultrasound (7) History of DVT (deep vein thrombosis): Comment: LLE about 2015 Code(s): Z86.718 - Personal history of other venous thrombosis and embolism Plan: Patient reports being on Coumadin since being diagnosed with left lower extremity DVT in 2016. (8) Stroke: Comment: Embolic cerebral infarct 2019 Code(s): I63.9 - Cerebral infarction, unspecified Plan: Patient reports that she was seen by Dr. Mckinney in the past and no need to see Neurology anymore per patient Continue Coumadin Aspirin 81 mg daily (9) CKD (chronic kidney disease) stage 3, GFR 30-59 ml/min: Code(s): N18.30 - Chronic kidney disease, stage 3 unspecified Plan: Creatinine 1.17, GFR 46 03/2023 Avoid nephrotoxic medications Continue to monitor (10) Impacted cerumen of right ear: Code(s): H61.21 - Impacted cerumen, right ear Plan: Start Debrox drops to right ear b.i.d. for 4 days Follow-up in the office if no improvement after finishing ear drops (11) Pruritic rash: Code(s): L28.2 - Other prurigo Plan: Left lateral thigh with mild slightly raised erythematous area about 10 cm x 4 cm, no signs of infection noted, nontender Start triamcinolone cream daily for 2 weeks Patient also can try loratadine 1 tablet daily p.r.n. Notify office if no improvement after finishing treatment (12) Adult general medical exam: Comment: Covid-19 IZ Manny x1. DEXA declined. PNA IZ declined. Code(s): Z00.00 - Encounter for general adult medical examination without abnormal findings (13) Screening for colon cancer: Code(s): Z12.11 - Encounter for screening for malignant neoplasm of colon (14) Screening for breast cancer: Code(s): Z12.39 - Encounter for other screening for malignant neoplasm of breast Plan Follow-up in 3 months or sooner as needed Orders: Orders TSH reflex Free T4 3 Months E03.9 - Hypothyroidism, unspecified Comprehensive [place]. Panel Fast 3 Months E03.9 - Hypothyroidism, unspecified Microalbumin, Random (w Creat) Today N18.30 - Chronic kidney disease, stage 3 unspecified MM tomosynthesis screening BI Today Z12.31 - Encounter for screening mammogram for malignant neoplasm of breast Lipid Panel 3 Months E78.5 - Hyperlipidemia, unspecified Td State Immunization Today Z23 - Encounter for immunization Referrals Cologuard Test Z12.11 - Encounter for screening for malignant neoplasm of colon, Z12.12 - Encounter for screening for malignant neoplasm of rectum Medications: New ezetimibe (Zetia) 10 mg PO DAILY 90 tabs 1RF E78.5 - Hyperlipidemia, unspecified carbamide peroxide 6.5% (Debrox) 5 drps otic (ear) right Q12H 4 days 15 mL 0RF H61.21 - Impacted cerumen, right ear triamcinolone acetonide 0.1% 1 appl topical DAILY 14 days 15 grams 0RF L28.2 - Other prurigo Discontinued triamcinolone acetonide 0.1% Discontinued Reason: Doctor's Order 1 appl topical DAILY 30 grams 0RF Coding Level of Care Code Est Pt Prev Care >65y(65039) Diagnoses skilled nursing (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
[2023-04-06 09:48] VITALS: BP 142/80; PULSE 70; O2SAT 99; BMI 29.0
== END 2023-04-06 10:24 | disposition home or self-care (01) ==
PROVIDERS: PCP Nurse Practitioner Family; Visit Provider Nurse Practitioner Family
DX: Z23 Encounter for immunization (principal)
CPT/HCPCS: 90471; 90714; 99397

== ENCOUNTER 2023-04-07 08:18 | Outpatient (AMB) | payer MEDICARE, SELFPAY ==
--- NOTE | 2023-04-07 08:40 | MHC.OFFVISCO ---
Intake Intake Visit Reasons: Anticoagulation Allergies No Known Allergies [No Known Allergies*] Allergy (Verified 04/07/23 08:35) Medication List - Last Reconciled 04/07/23 by Kiera Pollock RN aspirin 81 mg PO DAILY carbamide peroxide 6.5% (Debrox) 5 drps otic (ear) right Q12H 4 days darifenacin ER 15 mg PO DAILY ezetimibe (Zetia) 10 mg PO DAILY folic acid 0.4 mg PO DAILY furosemide 20 mg PO DAILY levothyroxine 100 mcg PO DAILY nystatin-triamcinolone 100,000-0.1 unit/g-% 1 appl topical DAILY polyethylene glycol 3350 (Miralax) 17 grams PO DAILY PRN sennosides (senna) 8.6 mg PO BID simvastatin 40 mg PO BEDTIME triamcinolone acetonide 0.1% 1 appl topical DAILY 14 days warfarin 2.5 mg See Protocol PO DAILY Nursing Note INR 3.3-?? out of therapeutic range Medications and supplements reviewed- no changes, had tetanus inj yesterday at pcp Patient status: no c.o, amb with cane Medications or supplements: no changes, had tetanus injection at pcp yesterday Diet: good Denies any signs and symptoms of bleeding or clotting or unusual bruising Bleeding, bruising, clotting discussed Nutritional guidance given: eat greens to lower inr, no reds for 2 days Dose: half dose today 1.25mg then 2.5mg x 6, 5mg x 1 F/U INR Date : 2 weeks Patient verbalizing understanding of instructions given. Anti-Coag Initial Assessment Social Hx Patient Tobacco Use Status: Never used Tobacco alcohol intake: never Cardiovascular Hx: Varicose Veins Lung Disease HX: DVT/PE Endocrine Hx: Thyroid Disease Musculoskeletal Hx: Arthritis Blood Disorder Hx: Hyperlipidemia Hx: Kidney Disease, Bladder Disorders (overactive bladder) and Other (hx hematuria) Neurological Hx: Stroke/TIA Cancer HX: No Psych. 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
[2023-04-07 08:42] LABS: Prothrombin Time Whole Bld POC 39.1 sec (11.1-13.5); ~PT, ~INR - Anti Coag Clinic 3.3 (0.9-1.1)
== END 2023-04-07 08:48 | disposition home or self-care (01) ==
LOC: HO.ACS 08:18
PROVIDERS: PCP Nurse Practitioner Family; Visit Provider Internal Medicine
DX: Z79.01 Long term (current) use of anticoagulants (principal)

== ENCOUNTER → 2023-04-07 08:18 | Outpatient (BNVA) | payer MEDICARE, SELFPAY | PROVIDERS: PCP Nurse Practitioner Family; Visit Provider Internal Medicine | DX: Z86.73 Personal history of transient ischemic attack (TIA), and cerebral infarction without residual deficits (principal); Z86.718 Personal history of other venous thrombosis and embolism; Z79.01 Long term (current) use of anticoagulants; Z51.81 Encounter for therapeutic drug level monitoring | CPT/HCPCS: 85610; 99211 ==

== ENCOUNTER 2023-04-21 08:27 | Outpatient (AMB) | payer MEDICARE, SELFPAY ==
--- NOTE | 2023-04-21 08:42 | MHC.OFFVISCO ---
Intake Intake Visit Reasons: Anticoagulation Allergies No Known Allergies [No Known Allergies*] Allergy (Verified 04/21/23 08:38) Medication List - Last Reconciled 04/21/23 by Kiera Pollock RN aspirin 81 mg PO DAILY carbamide peroxide 6.5% (Debrox) 5 drps otic (ear) right Q12H 4 days darifenacin ER 15 mg PO DAILY ezetimibe (Zetia) 10 mg PO DAILY folic acid 0.4 mg PO DAILY furosemide 20 mg PO DAILY levothyroxine 100 mcg PO DAILY nystatin-triamcinolone 100,000-0.1 unit/g-% 1 appl topical DAILY polyethylene glycol 3350 (Miralax) 17 grams PO DAILY PRN sennosides (senna) 8.6 mg PO BID simvastatin 40 mg PO BEDTIME triamcinolone acetonide 0.1% 1 appl topical DAILY 14 days warfarin 2.5 mg See Protocol PO DAILY Nursing Note INR - 3.5-? out of therapeutic range of 2-3 Medications and supplements reviewed Patient status: no c.o Medications or supplements: no changes Diet: appetite is good Denies any signs and symptoms of bleeding or clotting or unusual bruising Bleeding, bruising, clotting discussed Nutritional guidance given: eat greens to lower inr, no reds for 2 days Dose: hold warfarin today, then reduce weekly dosing to 2.5mg x 7 F/U INR Date : 2 weeks? Patient verbalizing understanding of instructions given. Anti-Coag Initial Assessment Social Hx Patient Tobacco Use Status: Never used Tobacco alcohol intake: never Cardiovascular Hx: Varicose Veins Lung Disease HX: DVT/PE Endocrine Hx: Thyroid Disease Musculoskeletal Hx: Arthritis Blood Disorder Hx: Hyperlipidemia Hx: Kidney Disease, Bladder Disorders (overactive bladder) and Other (hx hematuria) Neurological Hx: Stroke/TIA Cancer HX: No Psych. Illness/Depression: No Coding Level of Care Code Est Patient Level 1 Diagnoses Current use of anticoagulant therapy Z79.01 Assessment & Plan Assessment & Plan (1) Current use of anticoagulant therapy: Code(s): Z79.01 - alf (current) use of anticoagulants Category: Medical
[2023-04-21 08:43] LABS: Prothrombin Time Whole Bld POC 42.2 sec (11.1-13.5); ~PT, ~INR - Anti Coag Clinic 3.5 (0.9-1.1)
== END 2023-04-21 08:50 | disposition home or self-care (01) ==
LOC: HO.ACS 08:27
PROVIDERS: PCP Nurse Practitioner Family; Visit Provider Internal Medicine
DX: Z79.01 Long term (current) use of anticoagulants (principal)

== ENCOUNTER → 2023-04-21 08:27 | Outpatient (BNVA) | payer MEDICARE, SELFPAY | PROVIDERS: PCP Nurse Practitioner Family; Visit Provider Internal Medicine | DX: Z86.73 Personal history of transient ischemic attack (TIA), and cerebral infarction without residual deficits (principal); Z86.718 Personal history of other venous thrombosis and embolism; Z79.01 Long term (current) use of anticoagulants; Z51.81 Encounter for therapeutic drug level monitoring | CPT/HCPCS: 85610; 99211 ==

== ENCOUNTER 2023-04-22 11:03 | Outpatient (AMB) | payer MEDICARE, SELFPAY ==
[2023-04-22 11:05] VITALS: BMI 29.0
--- NOTE | 2023-04-22 11:05 | MHC.OFFVIS ---
Intake Vital Signs 04/22/23 11:05 Height 5 ft 6 in Weight 180 lb BMI 29.0 Intake Visit Reasons: 6 month leg check Intake Note: 6 mo follow up Leg check for Right LE re-occuring cellulitis and lymphedema. Pt states that her legs are good and she uses the lymphedema pumps ( she states she missed a couple days due to busy schedule) Also she takes water pills. Has knee pain issues but no other issues with legs Accompanied by: Self / Same As Patient Allergies No Known Allergies [No Known Allergies*] Allergy (Verified 04/22/23 11:09) HPI 6 month leg check HPI Details Very pleasant 72-year-old female presents for follow-up regarding venous ulcers and lymphedema. She presents for routine surveillance and all ulcers have gone on to heal. She continues to use her lymphedema pumps and has been doing fairly well. The right calf a list somewhat swollen but in general doing significantly better than what it was. She now presents for routine surveillance follow-up. 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 Current occupational exposures/hazards: No Cognitive needs: Yes (cane, walker) Hearing needs: No Vision needs: No Review of Systems Const All systems reviewed & are unremarkable except as noted in HPI and below Reports no additional complaints ENT Reports Normal hearing present Card Denies chest pain, Denies chest pain at rest, Denies chest pain with activity and Denies pedal edema Resp Denies cough GI Denies abdominal pain Musc Denies abnormal gait, Denies muscle cramps and Denies radiating pain into limb Skin/Breast Denies skin ulcer and Denies wounds Neuro Reports Normal hearing present and Denies abnormal gait Psych Reports no additional complaints Physical Exam Vital Signs: BMI result Body Mass Index 29.0 Const General: cooperative, healthy appearing and comfortable Orientation/consciousness: oriented to person, oriented to place and oriented to time HEENT Head: Yes normal to inspection Neck Neck: Yes normal visual inspection Carotids: no bruits Chest Chest palpation & inspection: normal inspection of the chest Resp Effort & Inspection: normal respiratory effort and able to speak in complete sentences Auscultation: clear to auscultation bilaterally, no crackles, no rales, no rhonchi and no wheezes Cardio Rate: regular rate Rhythm: regular rhythm Heart sounds: S1 normal heart sound present and S2 normal heart sound present Bruits: no carotid bruits Peripheral pulses: Peripheral pulses 2+ throughout GI Inspection: Yes normal to inspection Skin Other: Right lower extremity no active wounds. Hair: normal Neuro General: oriented to person, oriented to place and oriented to time Cranial nerves: Yes CN's II-XII intact bilaterally and Yes Normal hearing present Cognition (Neuro): normal cognition Motor exam (neuro): 5/5 motor strength present throughout Extrem Other: venous exam: No significant superficial varicosities or spider telangiectasias, minimal edema General: No clubbing, No cyanosis and No edema Psych Appearance: grossly normal Mental Status: mental status grossly normal Speech and movement: Normal speech and movement present Results Reviewed Results Reviewed: Carotid testing dated 12/18/2021 demonstrates right-sided 0-49 left side 50-79% with. Written report and images were reviewed. Assessment & Plan Assessment & Plan (1) Lymphedema: Code(s): I89.0 - Lymphedema, not elsewhere classified Plan: At the current time her lymphedema it appears to be stable. Will plan for routine surveillance follow-up in 6 months time. (2) Carotid stenosis, bilateral: Code(s): I65.23 - Occlusion and stenosis of bilateral carotid arteries Plan: In short patient has asymptomatic carotid disease. We have reviewed signs and symptoms of a stroke. We also discussed risk factor modification inclusive a healthy diet low in cholesterol. The patient will follow up with us with surveillance ultrasound of the carotids 6 months. Should there be any changes or signs or symptoms of a stroke we will be happy to see them back sooner. Thank you for allowing us to participate in this patient's care. If there are any questions or concerns please do not hesitate to contact us. Orders: Orders US carotid duplex BI 6 Months I65.23 - Occlusion and stenosis of bilateral carotid arteries Coding Level of Care Code Est Pt Level 4 (92521) Diagnoses Lymphedema I89.0 Carotid stenosis, bilateral I65.23
== END 2023-04-22 11:18 | disposition home or self-care (01) ==
PROVIDERS: Visit Provider Surgery Vascular Surgery
DX: I89.0 Lymphedema, not elsewhere classified (principal); I65.23 Occlusion and stenosis of bilateral carotid arteries
CPT/HCPCS: 99213

== ENCOUNTER → 2023-04-22 11:03 | Outpatient (BNVA) | payer MEDICARE, SELFPAY | PROVIDERS: Visit Provider Surgery Vascular Surgery | DX: I89.0 Lymphedema, not elsewhere classified (principal); I65.23 Occlusion and stenosis of bilateral carotid arteries | CPT/HCPCS: 99212 ==

== ENCOUNTER 2023-05-05 08:50 | Outpatient (AMB) | payer MEDICARE, SELFPAY ==
--- NOTE | 2023-05-05 09:02 | MHC.OFFVISCO ---
Intake Intake Visit Reasons: Anticoagulation Allergies No Known Allergies [No Known Allergies*] Allergy (Verified 05/05/23 08:56) Medication List - Last Reconciled 05/05/23 by Kiera Pollock RN aspirin 81 mg PO DAILY carbamide peroxide 6.5% (Debrox) 5 drps otic (ear) right Q12H 4 days darifenacin ER 15 mg PO DAILY ezetimibe (Zetia) 10 mg PO DAILY folic acid 0.4 mg PO DAILY furosemide 20 mg PO DAILY levothyroxine 100 mcg PO DAILY nystatin-triamcinolone 100,000-0.1 unit/g-% 1 appl topical DAILY polyethylene glycol 3350 (Miralax) 17 grams PO DAILY PRN sennosides (senna) 8.6 mg PO BID simvastatin 40 mg PO BEDTIME triamcinolone acetonide 0.1% 1 appl topical DAILY 14 days warfarin 2.5 mg See Protocol PO DAILY Nursing Note INR 3.7-? out of therapeutic range of 2-3 Medications and supplements reviewed Patient status: no c.o, denies poor appetite or etoh, does have stress due to brothers illness Medications or supplements: no changes Diet: appetite is good Denies any signs and symptoms of bleeding or clotting or unusual bruising Bleeding, bruising, clotting discussed Nutritional guidance given: eat greens to lower inr Dose: hold warfarin today then cont 2.5mg x 7 F/U INR Date : 2 weeks? Patient verbalizing understanding of instructions given. Anti-Coag Initial Assessment Social Hx Patient Tobacco Use Status: Never used Tobacco alcohol intake: never Cardiovascular Hx: Varicose Veins Lung Disease HX: DVT/PE Endocrine Hx: Thyroid Disease Musculoskeletal Hx: Arthritis Blood Disorder Hx: Hyperlipidemia Hx: Kidney Disease, Bladder Disorders (overactive bladder) and Other (hx hematuria) Neurological Hx: Stroke/TIA Cancer HX: No Psych. Illness/Depression: No Coding Level of Care Code Est Patient Level 1 Diagnoses Current use of anticoagulant therapy Z79.01 Results AMB INR Fingerstick AMB INR Fingerstick 3.7 Last Edit by Kiera Pollock RN on 05/05/23 09:04 Assessment & Plan Assessment & Plan (1) Current use of anticoagulant therapy: Code(s): Z79.01 - [facility] (current) use of anticoagulants Category: Medical
[2023-05-06 13:34] LABS: Prothrombin Time Whole Bld POC 44.1 sec (11.1-13.5); ~PT, ~INR - Anti Coag Clinic 3.7 (0.9-1.1)
== END 2023-05-05 09:09 | disposition home or self-care (01) ==
LOC: HO.ACS 08:50
PROVIDERS: PCP Nurse Practitioner Family; Visit Provider Internal Medicine
DX: Z79.01 Long term (current) use of anticoagulants (principal)

== ENCOUNTER → 2023-05-05 08:50 | Outpatient (BNVA) | payer MEDICARE, SELFPAY | PROVIDERS: PCP Nurse Practitioner Family; Visit Provider Internal Medicine | DX: Z86.73 Personal history of transient ischemic attack (TIA), and cerebral infarction without residual deficits (principal); Z86.718 Personal history of other venous thrombosis and embolism; Z79.01 Long term (current) use of anticoagulants; Z51.81 Encounter for therapeutic drug level monitoring | CPT/HCPCS: 85610; 99211 ==

== ENCOUNTER 2023-05-26 08:47 | Outpatient (AMB) | payer MEDICARE, SELFPAY ==
--- NOTE | 2023-05-26 09:06 | MHC.OFFVISCO ---
Intake Intake Visit Reasons: Anticoagulation Allergies No Known Allergies [No Known Allergies*] Allergy (Verified 05/26/23 08:55) Medication List - Last Reconciled 05/26/23 by Vicenta Jung RN aspirin 81 mg PO DAILY carbamide peroxide 6.5% (Debrox) 5 drps otic (ear) right Q12H 4 days darifenacin ER 15 mg PO DAILY ezetimibe (Zetia) 10 mg PO DAILY folic acid 0.4 mg PO DAILY furosemide 20 mg PO DAILY levothyroxine 100 mcg PO DAILY nystatin-triamcinolone 100,000-0.1 unit/g-% 1 appl topical DAILY polyethylene glycol 3350 (Miralax) 17 grams PO DAILY PRN sennosides (senna) 8.6 mg PO BID simvastatin 40 mg PO BEDTIME triamcinolone acetonide 0.1% 1 appl topical DAILY 14 days warfarin 2.5 mg See Protocol PO DAILY Nursing Note INR: 1.9 JUST OUT in therapeutic range- was away to see Brother on hospice Medications and supplements reviewed No changes in health, diet, medications, or supplements, Denies any signs and symptoms of bleeding or bruising or clotting. Bleeding, bruising, clotting discussed Nutritional guidance given -avoid foods that can lower the INR Dose: 2.5mg daily F/U INR: 3 weeks Patient verbalizes understanding of instructions given Anti-Coag Initial Assessment Social Hx Patient Tobacco Use Status: Never used Tobacco alcohol intake: never Cardiovascular Hx: Varicose Veins Lung Disease HX: DVT/PE Endocrine Hx: Thyroid Disease Musculoskeletal Hx: Arthritis Blood Disorder Hx: Hyperlipidemia Hx: Kidney Disease, Bladder Disorders (overactive bladder) and Other (hx hematuria) Neurological Hx: Stroke/TIA Cancer HX: No Psych. Illness/Depression: No Coding Level of Care Code Est Patient Level 1 Diagnoses Current use of anticoagulant therapy Z79.01 Results AMB INR Fingerstick AMB INR Fingerstick 1.9 Last Edit by Vicenta Jung RN on 05/26/23 09:00 MANUAL ENTRY Assessment & Plan Assessment & Plan (1) Current use of anticoagulant therapy: Code(s): Z79.01 - [facility] (current) use of anticoagulants Category: Medical
[2023-05-26 11:06] LABS: Prothrombin Time Whole Bld POC 22.5 sec (11.1-13.5); ~PT, ~INR - Anti Coag Clinic 1.9 (0.9-1.1)
== END 2023-05-26 09:13 | disposition home or self-care (01) ==
LOC: HO.ACS 08:47
PROVIDERS: PCP Nurse Practitioner Family; Visit Provider Internal Medicine
DX: Z79.01 Long term (current) use of anticoagulants (principal)

== ENCOUNTER → 2023-05-26 08:47 | Outpatient (BNVA) | payer MEDICARE, SELFPAY | PROVIDERS: PCP Nurse Practitioner Family; Visit Provider Internal Medicine | DX: Z86.73 Personal history of transient ischemic attack (TIA), and cerebral infarction without residual deficits (principal); Z86.718 Personal history of other venous thrombosis and embolism; Z79.01 Long term (current) use of anticoagulants; Z51.81 Encounter for therapeutic drug level monitoring | CPT/HCPCS: 85610; 99211 ==

== ENCOUNTER 2023-06-23 08:40 | Outpatient (REF) | payer MEDICARE, SELFPAY ==
[2023-06-23 10:16] LABS: Alanine Aminotransferase 7 U/L (0-31); Albumin Level 3.8 g/dL (3.5-5.0); Alkaline Phosphatase 81 U/L (39-117); Anion Gap 12 (12-20); Aspartate Amino Transferase 18 U/L (5-31); Bilirubin Total 0.5 mg/dL (0.0-1.0); Blood Urea Nitrogen 16 mg/dL (9-16); Calcium 9.2 mg/dL (8.4-10.2); Carbon Dioxide 29 mmol/L (22-29); Chloride 104 mmol/L (96-108); Cholesterol 132 mg/dL (<200); Estimated Glomerular Filt Rate 42; Glucose Fasting 89 mg/dL (60-99); HDL Cholesterol 33 mg/dL (>40); LDL Cholesterol Calculated 77 mg/dL (<100); Potassium 3.5 mmol/L (3.3-5.1); Sodium 141 mmol/L (135-145); Total Protein 7.8 g/dL (6.5-8.0); Triglycerides 111 mg/dL (<150)
[2023-06-23 10:33] LABS: TSH reflex Free T4 0.83 uIU/mL (0.32-4.0)
[2023-06-23 14:11] LABS: Microalbum/Creatinine Ratio Ur 15.7 ug/mg cr (<30)
== END 2023-06-23 08:41 | disposition home or self-care (01) ==
LOC: HO.LAB 08:40
PROVIDERS: PCP Nurse Practitioner Family; Visit Provider Nurse Practitioner Family
DX: N18.30 Chronic kidney disease, stage 3 unspecified (principal); E03.9 Hypothyroidism, unspecified; E78.5 Hyperlipidemia, unspecified; Z86.73 Personal history of transient ischemic attack (TIA), and cerebral infarction without residual deficits; Z86.718 Personal history of other venous thrombosis and embolism
CPT/HCPCS: 36415; 80053; 80061; 82043; 82570; 84443; 85610; 99211

== ENCOUNTER 2023-06-23 08:44 | Outpatient (AMB) | payer MEDICARE, SELFPAY ==
[2023-06-23 08:53] LABS: Prothrombin Time Whole Bld POC 43.7 sec (11.1-13.5); ~PT, ~INR - Anti Coag Clinic 3.6 (0.9-1.1)
--- NOTE | 2023-06-23 08:57 | MHC.OFFVISCO ---
Intake Intake Visit Reasons: Anticoagulation Allergies No Known Allergies [No Known Allergies*] Allergy (Verified 06/23/23 08:48) Medication List - Last Reconciled 06/23/23 by Francesca Donohue RN aspirin 81 mg PO DAILY carbamide peroxide 6.5% (Debrox) 5 drps otic (ear) right Q12H 4 days darifenacin ER 15 mg PO DAILY ezetimibe (Zetia) 10 mg PO DAILY folic acid 0.4 mg PO DAILY furosemide 20 mg PO DAILY levothyroxine 100 mcg PO DAILY nystatin-triamcinolone 100,000-0.1 unit/g-% 1 appl topical DAILY polyethylene glycol 3350 (Miralax) 17 grams PO DAILY PRN sennosides (senna) 8.6 mg PO BID simvastatin 40 mg PO BEDTIME triamcinolone acetonide 0.1% 1 appl topical DAILY 14 days warfarin 2.5 mg See Protocol PO DAILY Nursing Note PT.HAS HAD RECENT URI. NO CP,SOB,DIET/MED CHANGES,FALLS OR SX OF BLEEDING. HOLD WARFARIN TODAY THEN RESUME 2.5MGM DAILY AND FOLLOW-UP IN 2 WEEKS. GOOD UNDERSTANDING OF DOSIJHG INSTR. Anti-Coag Initial Assessment Social Hx Patient Tobacco Use Status: Never used Tobacco alcohol intake: never Cardiovascular Hx: Varicose Veins Lung Disease HX: DVT/PE Endocrine Hx: Thyroid Disease Musculoskeletal Hx: Arthritis Blood Disorder Hx: Hyperlipidemia Hx: Kidney Disease, Bladder Disorders (overactive bladder) and Other (hx hematuria) Neurological Hx: Stroke/TIA Cancer HX: No Psych. Illness/Depression: No Coding Level of Care Code Est Patient Level 1 Diagnoses Current use of anticoagulant therapy Z79.01 Assessment & Plan Assessment & Plan (1) Current use of anticoagulant therapy: Code(s): Z79.01 - [employer] (current) use of anticoagulants Category: Medical
== END 2023-06-23 08:59 | disposition home or self-care (01) ==
LOC: HO.ACS 08:44
PROVIDERS: PCP Nurse Practitioner Family; Visit Provider Internal Medicine
DX: Z79.01 Long term (current) use of anticoagulants (principal)

== ENCOUNTER 2023-07-21 08:12 | Outpatient (AMB) | payer MEDICARE, SELFPAY ==
[2023-07-21 08:41] LABS: Prothrombin Time Whole Bld POC 18.2 sec (11.1-13.5); ~PT, ~INR - Anti Coag Clinic 1.5 (0.9-1.1)
--- NOTE | 2023-07-21 08:42 | MHC.OFFVISCO ---
Intake Intake Visit Reasons: Anticoagulation Allergies No Known Allergies [No Known Allergies*] Allergy (Verified 07/21/23 08:35) Medication List - Last Reconciled 07/21/23 by Vicenta Jung RN aspirin 81 mg PO DAILY carbamide peroxide 6.5% (Debrox) 5 drps otic (ear) right Q12H 4 days darifenacin ER 15 mg PO DAILY ezetimibe (Zetia) 10 mg PO DAILY folic acid 0.4 mg PO DAILY furosemide 20 mg PO DAILY levothyroxine 100 mcg PO DAILY nystatin-triamcinolone 100,000-0.1 unit/g-% 1 appl topical DAILY polyethylene glycol 3350 (Miralax) 17 grams PO DAILY PRN sennosides (senna) 8.6 mg PO BID simvastatin 40 mg PO BEDTIME triamcinolone acetonide 0.1% 1 appl topical DAILY 14 days warfarin 2.5 mg See Protocol PO DAILY Nursing Note INR 1.5? out of therapeutic range labile INR s Medications and supplements reviewed Patient status: UNABLE TO DETERMINE REASON - SHE STATES MAY BE RELATED TO STRESS HER BROTHER ABOUT TO PASS AWAY , STATES SHE DID NOT MISS A DOSE, DOES NOT ANY ANY FRUITS OR VEGETABLES, Medications or supplements: NO CHANGES Diet: ONLY EATS MEAT EGGS DRINKS COKE AND WATER, STATES NO CHANGES Denies any signs and symptoms of bleeding or clotting or unusual bruising Bleeding, bruising, clotting discussed Nutritional guidance given: REVIEW FOOD LIST Dose: 5MG TODAY THEN 2.5MG DAILY F/U INR Date : 5 DAYS ?? Patient verbalizing understanding of instructions given. t/c to pcp -office not open, msg sent to nurse and pcp will call again after opening Anti-Coag Initial Assessment Social Hx Patient Tobacco Use Status: Never used Tobacco alcohol intake: never Cardiovascular Hx: Varicose Veins Lung Disease HX: DVT/PE Endocrine Hx: Thyroid Disease Musculoskeletal Hx: Arthritis Blood Disorder Hx: Hyperlipidemia Hx: Kidney Disease, Bladder Disorders (overactive bladder) and Other (hx hematuria) Neurological Hx: Stroke/TIA Cancer HX: No Psych. Illness/Depression: No Coding Level of Care Code Est Patient Level 1 Diagnoses Current use of anticoagulant therapy Z79.01 Assessment & Plan Assessment & Plan (1) Current use of anticoagulant therapy: Code(s): Z79.01 - [facility] (current) use of anticoagulants Category: Medical
== END 2023-07-21 08:55 | disposition home or self-care (01) ==
LOC: HO.ACS 08:12
PROVIDERS: PCP Internal Medicine; Visit Provider Internal Medicine
DX: Z79.01 Long term (current) use of anticoagulants (principal)

== ENCOUNTER → 2023-07-21 08:12 | Outpatient (BNVA) | payer MEDICARE, SELFPAY | PROVIDERS: PCP Internal Medicine; Visit Provider Internal Medicine | DX: Z86.73 Personal history of transient ischemic attack (TIA), and cerebral infarction without residual deficits (principal); Z86.718 Personal history of other venous thrombosis and embolism; Z79.01 Long term (current) use of anticoagulants; Z51.81 Encounter for therapeutic drug level monitoring | CPT/HCPCS: 85610; 99211 ==

== ENCOUNTER 2023-07-26 08:21 | Outpatient (AMB) | payer MEDICARE, SELFPAY ==
[2023-07-26 08:34] LABS: Prothrombin Time Whole Bld POC 26.3 sec (11.1-13.5); ~PT, ~INR - Anti Coag Clinic 2.2 (0.9-1.1)
--- NOTE | 2023-07-26 08:39 | MHC.OFFVISCO ---
Intake Intake Visit Reasons: Anticoagulation Allergies No Known Allergies [No Known Allergies*] Allergy (Verified 07/26/23 08:28) Nursing Note INR: 2.2 in therapeutic range Brother passed, pt grieving. Medications and supplements reviewed No changes in health, diet, medications, or supplements, Denies any signs and symptoms of bleeding or bruising or clotting. Bleeding, bruising, clotting discussed Nutritional guidance given Dose: resume usual dose of 2.5mg daily F/U INR: 2 weeks Patient verbalizes understanding of instructions given Anti-Coag Initial Assessment Social Hx Patient Tobacco Use Status: Never used Tobacco alcohol intake: never Cardiovascular Hx: Varicose Veins Lung Disease HX: DVT/PE Endocrine Hx: Thyroid Disease Musculoskeletal Hx: Arthritis Blood Disorder Hx: Hyperlipidemia Hx: Kidney Disease, Bladder Disorders (overactive bladder) and Other (hx hematuria) Neurological Hx: Stroke/TIA Cancer HX: No Psych. Illness/Depression: No Coding Level of Care Code Est Patient Level 1 Diagnoses Current use of anticoagulant therapy Z79.01 Assessment & Plan Assessment & Plan (1) Current use of anticoagulant therapy: Code(s): Z79.01 - [facility] (current) use of anticoagulants Category: Medical
== END 2023-07-26 08:49 | disposition home or self-care (01) ==
LOC: HO.ACS 08:21
PROVIDERS: PCP Internal Medicine; Visit Provider Internal Medicine
DX: Z79.01 Long term (current) use of anticoagulants (principal)

== ENCOUNTER → 2023-07-26 08:21 | Outpatient (BNVA) | payer MEDICARE, SELFPAY | PROVIDERS: PCP Internal Medicine; Visit Provider Internal Medicine | DX: Z86.73 Personal history of transient ischemic attack (TIA), and cerebral infarction without residual deficits (principal); Z86.718 Personal history of other venous thrombosis and embolism; Z51.81 Encounter for therapeutic drug level monitoring; Z79.01 Long term (current) use of anticoagulants | CPT/HCPCS: 85610; 99211 ==

== ENCOUNTER 2023-08-18 09:21 | Outpatient (AMB) | payer MEDICARE, SELFPAY ==
--- NOTE | 2023-08-18 09:45 | MHC.OFFVISCO ---
Intake Intake Visit Reasons: Anticoagulation Allergies No Known Allergies [No Known Allergies*] Allergy (Verified 08/18/23 09:36) Medication List - Last Reconciled 08/18/23 by Gillian Richmond RN aspirin 81 mg PO DAILY carbamide peroxide 6.5% (Debrox) 5 drps otic (ear) right Q12H 4 days darifenacin ER 15 mg PO DAILY ezetimibe (Zetia) 10 mg PO DAILY folic acid 0.4 mg PO DAILY furosemide 20 mg PO DAILY levothyroxine 100 mcg PO DAILY nystatin-triamcinolone 100,000-0.1 unit/g-% 1 appl topical DAILY polyethylene glycol 3350 (Miralax) 17 grams PO DAILY PRN sennosides (senna) 8.6 mg PO BID simvastatin 40 mg PO BEDTIME triamcinolone acetonide 0.1% 1 appl topical DAILY 14 days warfarin 2.5 mg See Protocol PO DAILY Nursing Note INR: 2.0 in therapeutic range OF 2-3 Medications and supplements reviewed Pt stated has had a couple deaths in the family and is greiving No changes in health, diet, medications, or supplements, Denies any signs and symptoms of bleeding or bruising or clotting. Bleeding, bruising, clotting discussed Nutritional guidance given: no greens today Dose: 2.5mg daily F/U INR: 2 weeks Patient verbalizes understanding of instructions given Anti-Coag Initial Assessment Social Hx Patient Tobacco Use Status: Never used Tobacco alcohol intake: never Cardiovascular Hx: Varicose Veins Lung Disease HX: DVT/PE Endocrine Hx: Thyroid Disease Musculoskeletal Hx: Arthritis Blood Disorder Hx: Hyperlipidemia Hx: Kidney Disease, Bladder Disorders (overactive bladder) and Other (hx hematuria) Neurological Hx: Stroke/TIA Cancer HX: No Psych. Illness/Depression: No Coding Level of Care Code Est Patient Level 1 Diagnoses Current use of anticoagulant therapy Z79.01 Assessment & Plan Assessment & Plan (1) Current use of anticoagulant therapy: Code(s): Z79.01 - [employer] (current) use of anticoagulants Category: Medical
== END 2023-08-18 09:53 | disposition home or self-care (01) ==
LOC: HO.ACS 09:21
PROVIDERS: PCP Internal Medicine; Visit Provider Internal Medicine
DX: Z79.01 Long term (current) use of anticoagulants (principal)

== ENCOUNTER → 2023-08-18 09:21 | Outpatient (BNVA) | payer MEDICARE, SELFPAY | PROVIDERS: PCP Internal Medicine; Visit Provider Internal Medicine | DX: Z86.73 Personal history of transient ischemic attack (TIA), and cerebral infarction without residual deficits (principal); Z86.718 Personal history of other venous thrombosis and embolism; Z79.01 Long term (current) use of anticoagulants; Z51.81 Encounter for therapeutic drug level monitoring | CPT/HCPCS: 85610; 99211 ==

== ENCOUNTER 2023-09-01 08:46 | Outpatient (AMB) | payer MEDICARE, SELFPAY ==
--- NOTE | 2023-09-01 09:08 | MHC.OFFVISCO ---
Intake Intake Visit Reasons: Anticoagulation Allergies No Known Allergies [No Known Allergies*] Allergy (Verified 09/01/23 09:03) Medication List - Last Reconciled 09/01/23 by Kiera Pollock RN aspirin 81 mg PO DAILY carbamide peroxide 6.5% (Debrox) 5 drps otic (ear) right Q12H 4 days darifenacin ER 15 mg PO DAILY ezetimibe (Zetia) 10 mg PO DAILY folic acid 0.4 mg PO DAILY furosemide 20 mg PO DAILY levothyroxine 100 mcg PO DAILY nystatin-triamcinolone 100,000-0.1 unit/g-% 1 appl topical DAILY polyethylene glycol 3350 (Miralax) 17 grams PO DAILY PRN sennosides (senna) 8.6 mg PO BID simvastatin 40 mg PO BEDTIME triamcinolone acetonide 0.1% 1 appl topical DAILY 14 days warfarin 2.5 mg See Protocol PO DAILY Nursing Note INR 1.7-? out of therapeutic range of 2-3 Medications and supplements reviewed Patient status: pt denies missed dose, unsure why inr is low Medications or supplements: no changes Diet: same Denies any signs and symptoms of bleeding or clotting or unusual bruising Bleeding, bruising, clotting discussed Nutritional guidance given: no greens for 2 days, eat a red today Dose: [] F/U INR Date : 2 weeks Patient verbalizing understanding of instructions given. Anti-Coag Initial Assessment Social Hx Patient Tobacco Use Status: Never used Tobacco alcohol intake: never Cardiovascular Hx: Varicose Veins Lung Disease HX: DVT/PE Endocrine Hx: Thyroid Disease Musculoskeletal Hx: Arthritis Blood Disorder Hx: Hyperlipidemia Hx: Kidney Disease, Bladder Disorders (overactive bladder) and Other (hx hematuria) Neurological Hx: Stroke/TIA Cancer HX: No Psych. Illness/Depression: No Coding Level of Care Code Est Patient Level 1 Diagnoses Current use of anticoagulant therapy Z79.01 Results AMB INR Fingerstick AMB INR Fingerstick 1.7 Last Edit by Kiera Pollock RN on 09/01/23 09:10 Assessment & Plan Assessment & Plan (1) Current use of anticoagulant therapy: Code(s): Z79.01 - retirement (current) use of anticoagulants Category: Medical
[2023-09-01 09:10] LABS: Prothrombin Time Whole Bld POC 20.6 sec (11.1-13.5); ~PT, ~INR - Anti Coag Clinic 1.7 (0.9-1.1)
== END 2023-09-01 09:16 | disposition home or self-care (01) ==
LOC: HO.ACS 08:46
PROVIDERS: PCP Internal Medicine; Visit Provider Internal Medicine
DX: Z79.01 Long term (current) use of anticoagulants (principal)

== ENCOUNTER → 2023-09-01 08:46 | Outpatient (BNVA) | payer MEDICARE, SELFPAY | PROVIDERS: PCP Internal Medicine; Visit Provider Internal Medicine | DX: Z86.73 Personal history of transient ischemic attack (TIA), and cerebral infarction without residual deficits (principal); Z86.718 Personal history of other venous thrombosis and embolism; Z79.01 Long term (current) use of anticoagulants; Z51.81 Encounter for therapeutic drug level monitoring | CPT/HCPCS: 85610; 99211 ==

== ENCOUNTER 2023-09-15 09:06 | Outpatient (AMB) | payer MEDICARE, SELFPAY ==
[2023-09-15 09:31] LABS: Prothrombin Time Whole Bld POC 24.8 sec (11.1-13.5); ~PT, ~INR - Anti Coag Clinic 2.1 (0.9-1.1)
--- NOTE | 2023-09-15 09:38 | MHC.OFFVISCO ---
Intake Intake Visit Reasons: Anticoagulation Allergies No Known Allergies [No Known Allergies*] Allergy (Verified 09/15/23 09:31) Medication List - Last Reconciled 09/15/23 by Vicenta Jung RN aspirin 81 mg PO DAILY carbamide peroxide 6.5% (Debrox) 5 drps otic (ear) right Q12H 4 days darifenacin ER 15 mg PO DAILY ezetimibe (Zetia) 10 mg PO DAILY folic acid 0.4 mg PO DAILY furosemide 20 mg PO DAILY levothyroxine 100 mcg PO DAILY nystatin-triamcinolone 100,000-0.1 unit/g-% 1 appl topical DAILY polyethylene glycol 3350 (Miralax) 17 grams PO DAILY PRN sennosides (senna) 8.6 mg PO BID simvastatin 40 mg PO BEDTIME triamcinolone acetonide 0.1% 1 appl topical DAILY 14 days warfarin 2.5 mg See Protocol PO DAILY Nursing Note INR: 2.1 in therapeutic range TO HAVE KNEE INJECTION 09/23/23 - ENC TO EAT GREENS OF SOME KIND 2 DAYS BEOFOR TO KEEP INR IN LOWER END OF RANGE Medications and supplements reviewed No changes in , diet, medications, or supplements, Denies any signs and symptoms of bleeding or bruising or clotting. Bleeding, bruising, clotting discussed Nutritional guidance given - REVIEW FOOD LIST WEEKLY, HAVE SOMETHING FROM GREEN LIST FEW DAYS BEFORE KNEE INJECTION Dose: 3.75MG X 1 DAY/ 2.5MG X 6 DAYS F/U INR: 3 WEEKS Patient verbalizes understanding of instructions given Anti-Coag Initial Assessment Social Hx Patient Tobacco Use Status: Never used Tobacco alcohol intake: never Cardiovascular Hx: Varicose Veins Lung Disease HX: DVT/PE Endocrine Hx: Thyroid Disease Musculoskeletal Hx: Arthritis Blood Disorder Hx: Hyperlipidemia Hx: Kidney Disease, Bladder Disorders (overactive bladder) and Other (hx hematuria) Neurological Hx: Stroke/TIA Cancer HX: No Psych. Illness/Depression: No Coding Level of Care Code Est Patient Level 1 Diagnoses Current use of anticoagulant therapy Z79.01 Assessment & Plan Assessment & Plan (1) Current use of anticoagulant therapy: Code(s): Z79.01 - [facility] intermediate (current) use of anticoagulants Category: Medical
== END 2023-09-15 09:40 | disposition home or self-care (01) ==
LOC: HO.ACS 09:06
PROVIDERS: PCP Internal Medicine; Visit Provider Internal Medicine
DX: Z79.01 Long term (current) use of anticoagulants (principal)

== ENCOUNTER → 2023-09-15 09:06 | Outpatient (BNVA) | payer MEDICARE, SELFPAY | PROVIDERS: PCP Internal Medicine; Visit Provider Internal Medicine | DX: Z86.73 Personal history of transient ischemic attack (TIA), and cerebral infarction without residual deficits (principal); Z86.718 Personal history of other venous thrombosis and embolism; Z79.01 Long term (current) use of anticoagulants; Z51.81 Encounter for therapeutic drug level monitoring | CPT/HCPCS: 85610; 99211 ==

== ENCOUNTER 2023-09-23 08:00 | Outpatient (AMB) | payer MEDICARE, SELFPAY ==
--- NOTE | 2023-09-23 08:08 | MHC.PC.OV ---
Vital Signs 09/23/23 08:09 Height 5 ft 6 in Weight 192 lb BMI 31.0 BP 136/74 Blood Pressure Location Lt brachial Position Sitting Intake Visit Reasons: Trans. 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 Accompanied by: Self / Same As Patient Allergies No Known Allergies [No Known Allergies*] Allergy (Verified 09/23/23 08:25) Medication List - Last Reconciled 09/23/23 by Susie Neal MD aspirin 81 mg PO DAILY carbamide peroxide 6.5% (Debrox) 5 drps otic (ear) right Q12H 4 days darifenacin ER 15 mg PO DAILY furosemide 20 mg PO DAILY levothyroxine 100 mcg PO DAILY nystatin-triamcinolone 100,000-0.1 unit/g-% 1 appl topical DAILY polyethylene glycol 3350 (Miralax) 17 grams PO DAILY PRN sennosides (senna) 8.6 mg PO BID simvastatin 40 mg PO BEDTIME triamcinolone acetonide 0.1% 1 appl topical DAILY 14 days warfarin 2.5 mg See Protocol PO DAILY Tobacco use date assessed: 09/23/23 Fall risk assessment: No Falls in past year Last assessed Fall Risk: 09/23/23 Dental Screening Dental Screen Date: 09/23/23 Did you have a dental visit in the last 12 months?: No Did you have a dental problem in the last 6 months where you did not have access to dental care?: No Was dental information given to patient?: Patient has dentist HPI HPI Comments History of Present Illness Details This is a 72-year-old female with hypothyroidism, hyperlipidemia, chronic kidney disease stage 3, history of stroke in 2019 with no residual deficit, history of DVT and bilateral knee osteoarthritis that comes today to establish care. Last TSH was normal and this will be repeated. Cholesterol well controlled with statins and reports no side effects. Has chronic kidney disease with last GFR of 42. Aware that has to avoid NSAIDs. Had an embolic stroke in 2019 with no residual deficit and history of DVT on current anticoagulation with Coumadin. Denies any active bleeding. Walks with a cane for gait stability due to bilateral knee osteoarthritis which is follow by ortho and she received local steroid injections occasionally which provides relieved. Denies any chest pain or shortness of breath. Compliant with medications. Doing well. [facility], [facility] Medical History (Updated 09/23/23 @ 09:13 by Susie Neal MD) Ulcer of right lower extremity Encounter to establish care Hyperactivity of bladder Transient cerebral ischemia Hypothyroidism History of TIAs Surgical History Hx of bladder repair surgery Family History Mother Diabetes Father COPD (chronic obstructive pulmonary disease) Social History Household Members: None Housing: House Do you presently have visiting nurse or other home services: No Alcohol intake: never Patient Tobacco Use Status: Never used Tobacco e-Cigarette/Vaping Use: Never Used Second Hand Smoke Exposure: No service: No Current occupational status: retired 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 1. Little interest or pleasure in doing things: not at all 2. Feeling down, depressed, or hopeless: not at all 3. Trouble falling or staying asleep, or sleeping too much: not at all 4. Feeling tired or having little energy: not at all 5. Poor appetite or overeating: not at all 6. Feeling bad about yourself - or that you are a failure or have let yourself or your family down: not at all 7. Trouble concentrating on things, such as reading the newspaper or watching television: not at all 8. Moving or speaking so slowly that other people could have noticed. Or the opposite - being so fidgety or restless that you have been moving around a lot more than usual: not at all 9. Thoughts that you would be better off or of hurting yourself in some way: not at all Total score: 0 Depression Screening Interpretation: Negative Depression Screening Done: Yes 95719 - PHQ-9 Billing: Yes Source: Developed by Drs. Pelon Castillo, Cristina Ty, Calvin Licea and colleagues, with an educational suyapa from [employer]. Thrive Questionnaire Date Thrive assessed: 09/23/23 I am a: Patient What is your living situation today?: I have a steady place to live Within the past 12 months, did the food you bought not last and you didn't have the money to get more?: Never true Within the past 12 months, did you worry whether your food would run out before you got money to buy more?: Never true Do you have trouble paying for medicines?: No Do you have trouble getting transportation to medical appointments?: No Do you have trouble paying your heating and electricity bill?: No Do you have trouble taking care of your child, family member or friend?: No Do you have trouble with day-to-day activities such as bathing, preparing meals, shopping, managing finances, etc.?: No Are you currently unemployed and looking for a job?: No Are you interested in more education?: No Please select the resources that you would like help with: None Currently or been in a relationship where the following occur: no concerns reported THRIVE Score: 0 AUDIT C Alcohol Use Questionnaire (AUDIT-C) 1. How often do you have a drink containing alcohol?: Never Total Score: 0 CANDACE-7 AMB Questionnaire CANDACE-7 Date CANDACE - 7 assessed: 09/23/23 Feeling nervous, anxious, or on edge: 0 = Not at all Not being able to stop or control worryin = Not at all Worrying too much about different things: 0 = Not at all Trouble relaxin = Not at all Being so restless that it is hard to sit still: 0 = Not at all Becoming easily annoyed or irritable: 0 = Not at all Feeling afraid as if something awful might happen: 0 = Not at all Total CANDACE-7 score (0-4 normal; 5-9 mild; 10-14 moderate; 15-21 severe): 0 Source: Developed by Drs. Pelon Castillo, Cristina Ty, Calvin Licea and colleagues, with an educational suyapa from [employer]. CANDACE-7 Assessment Billing CANDACE-7 Assessment Tool: CANDACE-7 Assessment 62836 Review of Systems Const All systems reviewed & are unremarkable except as noted in HPI and below Eyes Reports no additional complaints, Denies change in vision and Denies other visual disturbances Card Denies chest pain at rest, Denies chest pain with activity, Denies edema, Denies irregular heart rhythm, Denies claudication, Denies dyspnea, Denies dyspnea on exertion, Denies orthopnea, Denies paroxysmal nocturnal dyspnea and Denies slow heart rate Resp Denies cough, Denies dyspnea and Denies dyspnea on exertion Physical exam (Primary Care) Vital Signs: Last Vital Signs BP 136/74 09/23/23 08:09 BMI result Body Mass Index 31.0 Tobacco/Smoking Status: Tobacco use Status Tobacco use date assessed 09/23/23 09/23/23 08:18 Patient Tobacco Use Status Never used Tobacco 09/23/23 08:18 e-Cigarette/Vaping Use Never Used 09/23/23 08:18 PHQ-9: PHQ-9 Score PHQ-9: Total score 0 09/23/23 08:31 Depression Screening Interpretation: Negative Thrive Assessment: Date of Thrive Assessment Date Thrive assessed 09/23/23 09/23/23 08:18 Currently or been in a relationship where the following occur: no concerns reported Neck Neck: Yes normal visual inspection, Yes full ROM, Yes no lymphadenopathy and Yes supple Carotids: bruit Resp Effort & Inspection: normal respiratory effort Auscultation: clear to auscultation bilaterally Cardio Jugular venous distension: no JVD Rate: regular rate Rhythm: regular rhythm Heart sounds: S1 normal heart sound present and S2 normal heart sound present Extrem General: Yes full ROM Assessment and Plan Assessment & Plan (1) Hypothyroidism: Code(s): E03.9 - Hypothyroidism, unspecified Plan: Continue levothyroxine. Monitor TSH. (2) Hyperlipidemia: Code(s): E78.5 - Hyperlipidemia, unspecified Plan: Continue statins. LDL goal is less than 70. (3) Stroke: Comment: Embolic cerebral infarct 2019 Code(s): I63.9 - Cerebral infarction, unspecified Plan: Continue Coumadin. Continue aspirin for secondary prophylaxis. Keep blood pressure less than 130/80. (4) History of DVT (deep vein thrombosis): Comment: LLE about 2015 Code(s): Z86.718 - Personal history of other venous thrombosis and embolism Plan: Continue Coumadin. (5) CKD (chronic kidney disease) stage 3, GFR 30-59 ml/min: Code(s): N18.30 - Chronic kidney disease, stage 3 unspecified Qualifiers: Chronic kidney disease stage 3 subtype: stage 3a (GFR 45-59) Qualified Code(s): N18.31 - Chronic kidney disease, stage 3a Plan: Avoid NSAIDs. Keep blood pressure within goal being less than 130/80. (6) Primary osteoarthritis of knees, bilateral: Code(s): M17.0 - Bilateral primary osteoarthritis of knee Plan: Follow-up with ortho. Continue the use of a cane for gait stability. Medications: Refilled triamcinolone acetonide 0.1% 1 appl topical DAILY 14 days 15 grams 0RF L28.2 - Other prurigo nystatin-triamcinolone 100,000-0.1 unit/g-% 1 appl topical DAILY 30 grams 0RF L03.115 - Cellulitis of right lower limb Coding Level of Care Code Est Pt Level 4 (31207) Diagnoses Hypothyroidism E03.9 Hyperlipidemia E78.5 Stroke I63.9 History of DVT (deep vein thrombosis) Z86.718 Stage 3a chronic kidney disease N18.31 Chronic kidney disease stage 3 subtype: stage 3a (GFR 45-59) Primary osteoarthritis of knees, bilateral M17.0 Additional Codes CANDACE-7 Assessment Billing - CANDACE-7 Assessment Tool: CANDACE-7 Assessment 94588 ([id number]) Time Spent (min) 25
[2023-09-23 08:09] VITALS: BP 136/74; BMI 31.0
== END 2023-09-23 08:41 | disposition home or self-care (01) ==
PROVIDERS: PCP Internal Medicine; Visit Provider Internal Medicine
DX: E03.9 Hypothyroidism, unspecified (principal); Z86.73 Personal history of transient ischemic attack (TIA), and cerebral infarction without residual deficits; Z86.718 Personal history of other venous thrombosis and embolism; N18.31 Chronic kidney disease, stage 3a; M17.0 Bilateral primary osteoarthritis of knee
CPT/HCPCS: 99214

== ENCOUNTER 2023-10-06 08:53 | Outpatient (REF) | payer MEDICARE, SELFPAY ==
[2023-10-06 11:09] LABS: Thyroid Stimulating Hormone 1.46 uIU/mL (0.32-4.0)
== END 2023-10-06 08:54 | disposition home or self-care (01) ==
LOC: HO.LAB 08:53
PROVIDERS: PCP Internal Medicine; Visit Provider Internal Medicine
DX: E03.9 Hypothyroidism, unspecified (principal)
CPT/HCPCS: 20610; 36415; 84443; 85610; 99211; J1010

== ENCOUNTER 2023-10-06 08:56 | Outpatient (AMB) | payer MEDICARE, SELFPAY ==
--- NOTE | 2023-10-06 09:09 | MHC.OFFVISCO ---
Intake Intake Visit Reasons: Anticoagulation Allergies No Known Allergies [No Known Allergies*] Allergy (Verified 10/06/23 09:06) Medication List - Last Reconciled 10/06/23 by Kiera Pollock RN aspirin 81 mg PO DAILY carbamide peroxide 6.5% (Debrox) 5 drps otic (ear) right Q12H 4 days darifenacin ER 15 mg PO DAILY furosemide 20 mg PO DAILY levothyroxine 100 mcg PO DAILY nystatin-triamcinolone 100,000-0.1 unit/g-% 1 appl topical DAILY polyethylene glycol 3350 (Miralax) 17 grams PO DAILY PRN sennosides (senna) 8.6 mg PO BID simvastatin 40 mg PO BEDTIME triamcinolone acetonide 0.1% 1 appl topical DAILY 14 days warfarin 2.5 mg See Protocol PO DAILY Nursing Note INR: 2.1- in therapeutic range of 2-3 Medications and supplements reviewed- no changes No changes in health, diet, medications, or supplements, Denies any signs and symptoms of bleeding or bruising or clotting. Bleeding, bruising, clotting discussed Nutritional guidance given Dose: 2.5mg x 5, 3.75mg x 1 F/U INR: 3 weeks Patient verbalizes understanding of instructions given may have upcoming knee injection Anti-Coag Initial Assessment Social Hx Patient Tobacco Use Status: Never used Tobacco alcohol intake: never Cardiovascular Hx: Varicose Veins Lung Disease HX: DVT/PE Endocrine Hx: Thyroid Disease Musculoskeletal Hx: Arthritis Blood Disorder Hx: Hyperlipidemia Hx: Kidney Disease, Bladder Disorders (overactive bladder) and Other (hx hematuria) Neurological Hx: Stroke/TIA Cancer HX: No Psych. Illness/Depression: No Coding Level of Care Code Est Patient Level 1 Diagnoses Current use of anticoagulant therapy Z79.01 Results AMB INR Fingerstick AMB INR Fingerstick 2.1 Last Edit by Kiera Pollock RN on 10/06/23 09:11 Assessment & Plan Assessment & Plan (1) Current use of anticoagulant therapy: Code(s): Z79.01 - long-term (current) use of anticoagulants Category: Medical
[2023-10-06 09:11] LABS: Prothrombin Time Whole Bld POC 25.3 sec (11.1-13.5); ~PT, ~INR - Anti Coag Clinic 2.1 (0.9-1.1)
== END 2023-10-06 09:14 | disposition home or self-care (01) ==
LOC: HO.ACS 08:56
PROVIDERS: PCP Internal Medicine; Visit Provider Internal Medicine
DX: Z79.01 Long term (current) use of anticoagulants (principal)

== ENCOUNTER 2023-10-06 10:55 | Outpatient (AMB) | payer MEDICARE, SELFPAY ==
--- NOTE | 2023-10-06 11:12 | A.OFFVIS_ITS ---
Intake Vital Signs 10/06/23 11:29 Height 5 ft 6 in Weight 192 lb BMI 31.0 Intake Visit Reasons: OV-B/L knee injection-last inj. 11/10/22 Intake Note: Zahraa romano a 72 year old female who presents today for a follow up of bilateral knee, last injection on 11/09/22. Patient reports last injection provided her with some relief for about 2 months. States her right knee causes her the most pain. She would like to repeat injections. Allergies No Known Allergies [No Known Allergies*] Allergy (Verified 10/06/23 11:30) HPI OV-B/L knee injection-last inj. 11/10/22 HPI Details 72-year-old female who returns to the [facility] today for a follow-up of bilateral knee pain. She had her last injection on 11/10/22. She would like to repeat the injection. [facility] Medical History (Updated 09/23/23 @ 09:13 by Susie Neal MD) Ulcer of right lower extremity Encounter to establish care Hyperactivity of bladder Transient cerebral ischemia Hypothyroidism History of TIAs Surgical History Hx of bladder repair surgery Family History Mother Diabetes Father COPD (chronic obstructive pulmonary disease) Social History Household Members: None Housing: House Do you presently have visiting nurse or other home services: No Alcohol intake: never Patient Tobacco Use Status: Never used Tobacco e-Cigarette/Vaping Use: Never Used Second Hand Smoke Exposure: No service: No Current occupational status: retired 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 Tenderness along the medial and lateral joint line. Full ROM with crepitus. Negative Jordan?s. No ligamentous laxity. NVI. Office Procedures Joint Injection/Drain Joint Injection/Drain Primary Site: right knee Secondary Site: left knee Prep: site was prepped using aseptic technique, ethochloride spray was applied and injection warnings given Injected: 80 mg of, DepoMedrol, with 8 mL of, 1% plain lidocaine and in the joint Approach Used: anterolateral Procedure: The patient tolerated the procedure well and there was some relief with the local anesthesia Coding 74499 - Glenohumeral/Tronchanteric Bursa/Intraarticular Procedure code (CPT) selection complete Results AMB INR Fingerstick AMB INR Fingerstick 2.1 Last Edit by Kiera Pollock RN on 10/06/23 09:11 Assessment & Plan Assessment & Plan (1) Primary osteoarthritis of knees, bilateral: Code(s): M17.0 - Bilateral primary osteoarthritis of knee Plan We discussed options today which include steroid injection. They did consent to move forward with the bilateral knee injection, which was tolerated well. I recommended rest, ice and elevation and OTC anti-inflammatories PRN for discomfort. If symptoms persist or worsens over the next 6-8 weeks, patient will contact the office, otherwise follow-up as needed. Patient Instructions: Scribed for Felicia Bonner PA-C, by Waldemar Deras medical registrar, on 10/06/2023 at 11:15 AM LUIS. Felicia Mills PA-C, have personally reviewed and agree with the information entered by the scribe. Coding Level of Care Code Est Pt Level 3 (05826) Diagnoses Primary osteoarthritis of knees, bilateral M17.0 CPT Codes Coding - Joint 7: 73594 - Glenohumeral/Tronchanteric Bursa/Intraarticular ([id number])
[2023-10-06 11:29] VITALS: BMI 31.0
== END 2023-10-06 11:36 | disposition home or self-care (01) ==
PROVIDERS: PCP Internal Medicine; Visit Provider Physician Assistant
DX: M17.0 Bilateral primary osteoarthritis of knee (principal)
CPT/HCPCS: 20610

== ENCOUNTER 2023-10-25 09:28 | Outpatient (AMB) | payer MEDICARE, SELFPAY ==
[2023-10-25 09:35] LABS: Prothrombin Time Whole Bld POC 21.9 sec (11.1-13.5); ~PT, ~INR - Anti Coag Clinic 1.8 (0.9-1.1)
--- NOTE | 2023-10-25 09:35 | MHC.OFFVISCO ---
Intake Intake Visit Reasons: Anticoagulation Allergies No Known Allergies [No Known Allergies*] Allergy (Verified 10/25/23 09:30) Medication List - Last Reconciled 10/25/23 by Kiera Pollock RN aspirin 81 mg PO DAILY carbamide peroxide 6.5% (Debrox) 5 drps otic (ear) right Q12H 4 days darifenacin ER 15 mg PO DAILY furosemide 20 mg PO DAILY levothyroxine 100 mcg PO DAILY nystatin-triamcinolone 100,000-0.1 unit/g-% 1 appl topical DAILY polyethylene glycol 3350 (Miralax) 17 grams PO DAILY PRN sennosides (senna) 8.6 mg PO BID simvastatin 40 mg PO BEDTIME triamcinolone acetonide 0.1% 1 appl topical DAILY 14 days warfarin 2.5 mg See Protocol PO DAILY Nursing Note INR 1.8-? out of therapeutic range of 2-3 unsure why inr is low Medications and supplements reviewed Patient status: pt states no missed doses, pt states had bilat knee injections 10/06/23 Medications or supplements: no changes Diet: same Denies any signs and symptoms of bleeding or clotting or unusual bruising Bleeding, bruising, clotting discussed Nutritional guidance given: no greens for 2-3 days, eat reds to raise food list reviewed Dose: 3.75mg today then cont reg dosing 2.5mg x 6, 3.75mg x 1 F/U INR Date : 2 weeks? Patient verbalizing understanding of instructions given. Anti-Coag Initial Assessment Social Hx Patient Tobacco Use Status: Never used Tobacco alcohol intake: never Cardiovascular Hx: Varicose Veins Lung Disease HX: DVT/PE Endocrine Hx: Thyroid Disease Musculoskeletal Hx: Arthritis Blood Disorder Hx: Hyperlipidemia Hx: Kidney Disease, Bladder Disorders (overactive bladder) and Other (hx hematuria) Neurological Hx: Stroke/TIA Cancer HX: No Psych. 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
== END 2023-10-25 09:44 | disposition home or self-care (01) ==
LOC: HO.ACS 09:28
PROVIDERS: PCP Internal Medicine; Visit Provider Internal Medicine
DX: Z79.01 Long term (current) use of anticoagulants (principal)

== ENCOUNTER 2023-10-25 09:44 | Outpatient (REF) | payer MEDICARE, SELFPAY ==
--- NOTE | ~2023-10-25 | US_ITS ---
EXAMINATION: US EXTRACRANIAL CAROTID DUPLEX, BILATERAL CLINICAL INFORMATION: Occlusion and stenosis of bilateral carotid arteries COMPARISON: Carotid Doppler 12/17/2021 TECHNIQUE: Real-time ultrasound and Doppler techniques (integrating B-mode 2-D vascular images, Doppler spectral analysis and color-flow Doppler imaging) were utilized to interrogate the extracranial carotid arteries, the vertebral arteries and proximal subclavian arteries bilaterally. The degree of stenosis is determined by criteria similar to NASCET. FINDINGS: Right Side: 1. There is mild atherosclerotic plaque seen in the bifurcation/proximal ICA region. 2. The common carotid artery PSV proximally is 79 cm/s and distally 115 cm/s. 3. The proximal internal carotid artery velocities are 120 cm/s systolic and 26 cm/s diastolic. 4. The proximal external carotid artery PSV is 123 cm/s. 5. The vertebral artery shows antegrade flow. 6. The subclavian artery waveforms are normal. Left Side: 1. There is mild atherosclerotic plaque seen in the bifurcation/proximal ICA region. 2. The common carotid artery PSV proximally is 87 cm/s and distally 91 cm/s. 3. The proximal internal carotid artery velocities are 179 cm/s systolic and 41 cm/s diastolic. 4. The proximal external carotid artery PSV is 71 cm/s. 5. The vertebral artery shows antegrade flow. 6. The subclavian artery waveforms are normal. US/US carotid duplex BI IMPRESSION: 1. RIGHT: Minimal, non-hemodynamically significant stenosis of the proximal right internal carotid artery corresponding to a 0-49% stenosis by velocity criteria. 2. LEFT: Moderate, hemodynamically significant stenosis of the proximal left internal carotid artery corresponding to a 50-79% stenosis by velocity criteria. 3. There is no change in the category severity of disease when compared to the previous study dated 12/17/2021.
== END 2023-10-25 09:45 | disposition home or self-care (01) ==
LOC: HO.US 09:44
PROVIDERS: PCP Internal Medicine; Visit Provider Surgery Vascular Surgery
DX: I65.23 Occlusion and stenosis of bilateral carotid arteries (principal)
CPT/HCPCS: 85610; 93880; 99211

== ENCOUNTER 2023-11-10 08:49 | Outpatient (AMB) | payer MEDICARE, SELFPAY ==
--- NOTE | 2023-11-10 09:08 | MHC.OFFVISCO ---
Intake Intake Visit Reasons: Anticoagulation Allergies No Known Allergies [No Known Allergies*] Allergy (Verified 11/10/23 09:05) Medication List - Last Reconciled 11/10/23 by Kiera Pollock RN aspirin 81 mg PO DAILY carbamide peroxide 6.5% (Debrox) 5 drps otic (ear) right Q12H 4 days darifenacin ER 15 mg PO DAILY furosemide 20 mg PO DAILY levothyroxine 100 mcg PO DAILY nystatin-triamcinolone 100,000-0.1 unit/g-% 1 appl topical DAILY polyethylene glycol 3350 (Miralax) 17 grams PO DAILY PRN sennosides (senna) 8.6 mg PO BID simvastatin 40 mg PO BEDTIME triamcinolone acetonide 0.1% 1 appl topical DAILY 14 days warfarin 2.5 mg See Protocol PO DAILY Nursing Note INR: 2.4- in therapeutic range of 2-3 Medications and supplements reviewed- no changes No changes in health, diet, medications, or supplements, Denies any signs and symptoms of bleeding or bruising or clotting. Bleeding, bruising, clotting discussed Nutritional guidance given Dose: 3.75mg x 1 , 2.5mg x 6 F/U INR: 3 weeks Patient verbalizes understanding of instructions given Anti-Coag Initial Assessment Social Hx Patient Tobacco Use Status: Never used Tobacco alcohol intake: never Cardiovascular Hx: Varicose Veins Lung Disease HX: DVT/PE Endocrine Hx: Thyroid Disease Musculoskeletal Hx: Arthritis Blood Disorder Hx: Hyperlipidemia Hx: Kidney Disease, Bladder Disorders (overactive bladder) and Other (hx hematuria) Neurological Hx: Stroke/TIA Cancer HX: No Psych. 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
[2023-11-10 09:10] LABS: Prothrombin Time Whole Bld POC 28.4 sec (11.1-13.5); ~PT, ~INR - Anti Coag Clinic 2.4 (0.9-1.1)
== END 2023-11-10 09:13 | disposition home or self-care (01) ==
LOC: HO.ACS 08:49
PROVIDERS: PCP Internal Medicine; Visit Provider Internal Medicine
DX: Z79.01 Long term (current) use of anticoagulants (principal)

== ENCOUNTER → 2023-11-10 08:49 | Outpatient (BNVA) | payer MEDICARE, SELFPAY | PROVIDERS: PCP Internal Medicine; Visit Provider Internal Medicine | DX: Z86.73 Personal history of transient ischemic attack (TIA), and cerebral infarction without residual deficits (principal); Z86.718 Personal history of other venous thrombosis and embolism; Z79.01 Long term (current) use of anticoagulants; Z51.81 Encounter for therapeutic drug level monitoring | CPT/HCPCS: 85610; 99211 ==

== ENCOUNTER 2023-12-03 09:24 | Outpatient (AMB) | payer MEDICARE, SELFPAY ==
--- NOTE | 2023-12-03 09:42 | MHC.OFFVISCO ---
Intake Intake Visit Reasons: Anticoagulation Allergies No Known Allergies [No Known Allergies*] Allergy (Verified 12/03/23 09:25) Medication List - Last Reconciled 12/03/23 by Vicenta Jung RN aspirin 81 mg PO DAILY carbamide peroxide 6.5% (Debrox) 5 drps otic (ear) right Q12H 4 days darifenacin ER 15 mg PO DAILY furosemide 20 mg PO DAILY levothyroxine 100 mcg PO DAILY nystatin-triamcinolone 100,000-0.1 unit/g-% 1 appl topical DAILY polyethylene glycol 3350 (Miralax) 17 grams PO DAILY PRN sennosides (senna) 8.6 mg PO BID simvastatin 40 mg PO BEDTIME triamcinolone acetonide 0.1% 1 appl topical DAILY 14 days warfarin 2.5 mg See Protocol PO DAILY Nursing Note INR 1.8 out of therapeutic range Medications and supplements reviewed Patient status: has been under stress due to ill nephew- she thinks that is why her INR is down, - she states does not miss doses Medications or supplements: no change Diet: good, doesnt eat very many fruits or vegetables Denies any signs and symptoms of bleeding or clotting or unusual bruising Bleeding, bruising, clotting discussed Nutritional guidance given: have foods that you like to help raise the INR, avoid foods that lower x 3 days Dose: boost today' dose 3.75mg ( x 2 days this week ) then resume 3.75mg x 1 day/ 2.5mg x 6 days F/U INR Date : 12/22/23 ?? Patient verbalizing understanding of instructions given. Anti-Coag Initial Assessment Social Hx Patient Tobacco Use Status: Never used Tobacco alcohol intake: never Cardiovascular Hx: Varicose Veins Lung Disease HX: DVT/PE Endocrine Hx: Thyroid Disease Musculoskeletal Hx: Arthritis Blood Disorder Hx: Hyperlipidemia Hx: Kidney Disease, Bladder Disorders (overactive bladder) and Other (hx hematuria) Neurological Hx: Stroke/TIA Cancer HX: No Psych. Illness/Depression: No Coding Level of Care Code Est Patient Level 1 Diagnoses Current use of anticoagulant therapy Z79.01 Results AMB INR Fingerstick AMB INR Fingerstick 1.8 Last Edit by Vicenta Jung RN on 12/03/23 09:35 MANUAL ENTRY Assessment & Plan Assessment & Plan (1) Current use of anticoagulant therapy: Code(s): Z79.01 - intermediate (current) use of anticoagulants Category: Medical
[2023-12-04 09:24] LABS: Prothrombin Time Whole Bld POC 21.3 sec (11.1-13.5); ~PT, ~INR - Anti Coag Clinic 1.8 (0.9-1.1)
== END 2023-12-03 09:46 | disposition home or self-care (01) ==
LOC: HO.ACS 09:24
PROVIDERS: PCP Internal Medicine; Visit Provider Internal Medicine
DX: Z79.01 Long term (current) use of anticoagulants (principal)

== ENCOUNTER → 2023-12-03 09:24 | Outpatient (BNVA) | payer MEDICARE, SELFPAY | PROVIDERS: PCP Internal Medicine; Visit Provider Internal Medicine | DX: Z86.718 Personal history of other venous thrombosis and embolism (principal); Z86.73 Personal history of transient ischemic attack (TIA), and cerebral infarction without residual deficits; Z79.01 Long term (current) use of anticoagulants; Z51.81 Encounter for therapeutic drug level monitoring | CPT/HCPCS: 85610; 99211 ==

== ENCOUNTER 2023-12-29 09:11 | Outpatient (AMB) | payer MEDICARE, SELFPAY ==
--- NOTE | 2023-12-29 09:29 | MHC.OFFVISCO ---
Intake Intake Visit Reasons: Anticoagulation Allergies No Known Allergies [No Known Allergies*] Allergy (Verified 12/29/23 09:16) Medication List - Last Reconciled 12/29/23 by Vicenta Jung RN aspirin 81 mg PO DAILY carbamide peroxide 6.5% (Debrox) 5 drps otic (ear) right Q12H 4 days darifenacin ER 15 mg PO DAILY furosemide 20 mg PO DAILY levothyroxine 100 mcg PO DAILY nystatin-triamcinolone 100,000-0.1 unit/g-% 1 appl topical DAILY polyethylene glycol 3350 (Miralax) 17 grams PO DAILY PRN sennosides (senna) 8.6 mg PO BID simvastatin 40 mg PO BEDTIME triamcinolone acetonide 0.1% 1 appl topical DAILY 14 days warfarin 2.5 mg See Protocol PO DAILY Nursing Note INR: 1.7 OUT OF therapeutic range Medications and supplements reviewed No changes in health, diet, medications, or supplements, Denies any signs and symptoms of bleeding or bruising or clotting. Bleeding, bruising, clotting discussed Nutritional guidance given - eat a mix of fruits and vegetables that you enjoy Dose: increase weekly dose 5mg x 1 day/ 2.5mg x 6 days F/U INR: 2 weeks Patient verbalizes understanding of instructions given Anti-Coag Initial Assessment Social Hx Patient Tobacco Use Status: Never used Tobacco alcohol intake: never Cardiovascular Hx: Varicose Veins Lung Disease HX: DVT/PE Endocrine Hx: Thyroid Disease Musculoskeletal Hx: Arthritis Blood Disorder Hx: Hyperlipidemia Hx: Kidney Disease, Bladder Disorders (overactive bladder) and Other (hx hematuria) Neurological Hx: Stroke/TIA Cancer HX: No Psych. Illness/Depression: No Coding Level of Care Code Est Patient Level 1 Diagnoses Current use of anticoagulant therapy Z79.01 Results AMB INR Fingerstick AMB INR Fingerstick 1.7 Last Edit by Vicenta Jung RN on 12/29/23 09:25 MANUAL ENTRY Assessment & Plan Assessment & Plan (1) Current use of anticoagulant therapy: Code(s): Z79.01 - shelter (current) use of anticoagulants Category: Medical
[2023-12-29 09:32] LABS: Prothrombin Time Whole Bld POC 20.2 sec (11.1-13.5); ~PT, ~INR - Anti Coag Clinic 1.7 (0.9-1.1)
== END 2023-12-29 09:31 | disposition home or self-care (01) ==
LOC: HO.ACS 09:11
PROVIDERS: PCP Internal Medicine; Visit Provider Internal Medicine
DX: Z79.01 Long term (current) use of anticoagulants (principal)

== ENCOUNTER → 2023-12-29 09:11 | Outpatient (BNVA) | payer MEDICARE, SELFPAY | PROVIDERS: PCP Internal Medicine; Visit Provider Internal Medicine | DX: Z86.73 Personal history of transient ischemic attack (TIA), and cerebral infarction without residual deficits (principal); Z86.718 Personal history of other venous thrombosis and embolism; Z79.01 Long term (current) use of anticoagulants; Z51.81 Encounter for therapeutic drug level monitoring | CPT/HCPCS: 85610; 99211 ==

== ENCOUNTER 2024-01-12 08:57 | Outpatient (AMB) | payer MEDICARE, SELFPAY ==
--- NOTE | 2024-01-12 09:10 | MHC.OFFVISCO ---
Intake Intake Visit Reasons: Anticoagulation Allergies No Known Allergies [No Known Allergies*] Allergy (Verified 01/12/24 09:06) Medication List - Last Reconciled 01/12/24 by Kiera Pollock RN aspirin 81 mg PO DAILY carbamide peroxide 6.5% (Debrox) 5 drps otic (ear) right Q12H 4 days darifenacin ER 15 mg PO DAILY furosemide 20 mg PO DAILY levothyroxine 100 mcg PO DAILY nystatin-triamcinolone 100,000-0.1 unit/g-% 1 appl topical DAILY polyethylene glycol 3350 (Miralax) 17 grams PO DAILY PRN sennosides (senna) 8.6 mg PO BID simvastatin 40 mg PO BEDTIME triamcinolone acetonide 0.1% 1 appl topical DAILY 14 days warfarin 2.5 mg See Protocol PO DAILY Nursing Note INR 3.1-?? out of therapeutic range of 2-3 Medications and supplements reviewed Patient status: no c.o- amb with cane Medications or supplements: no changes Diet: same Denies any signs and symptoms of bleeding or clotting or unusual bruising Bleeding, bruising, clotting discussed Nutritional guidance given: pt enc to eat a green today Dose: 2.5mg x 6, 5mg x 1 F/U INR Date : 2 weeks Patient verbalizing understanding of instructions given. Anti-Coag Initial Assessment Social Hx Patient Tobacco Use Status: Never used Tobacco alcohol intake: never Cardiovascular Hx: Varicose Veins Lung Disease HX: DVT/PE Endocrine Hx: Thyroid Disease Musculoskeletal Hx: Arthritis Blood Disorder Hx: Hyperlipidemia Hx: Kidney Disease, Bladder Disorders (overactive bladder) and Other (hx hematuria) Neurological Hx: Stroke/TIA Cancer HX: No Psych. Illness/Depression: No Questionnaires HAS-BLED Does the patient had uncontrolled Hypertension?: No Does the patient have renal disease?: Yes Does the patient have liver disease?: No Does the patient have a history of stroke?: Yes Has the patient had major bleeding or predisposition to bleeding?: Yes Does the patient have labile INRs?: Yes Is the patient over 65 years of age?: Yes Is the patient on medications that gives them a predisposition to bleeding?: Yes Does the patient use alcohol?: No HAS-BLED Score: 6 CHADSVASC Age: 66-74 Gender: Female Does the patient have a history of CHF?: No Does the patient have a history of Hypertension?: No Does the patient have a history of Stroke/TIA/Thromboembolism?: Yes Does the patient have a history of Vascular Disease (prior KS, PAD or aortic plaque)?: Yes Does the patient have a history of Diabetes?: No CHADS VACS Score: 5 Aury Prediction Score Rsk VTE Active Cancer: No Previous VTE, excluding superficial vein thrombosis: Yes Reduced mobility: Yes Already known Thrombophilic Condition: No With-in last month Trauma and/or Surgery: No Elderly 70 year or older: Yes Heart and/or Respiratory Failure: No Acute Myocardial infarction and/or Ischemic Stroke: No Acute Infection and/or Rheumatologic Disorder: No Obesity (BMI 30 or greater): No Ongoing Hormonal Treatment: No Score: 7 Aury Score less than 4; Low Risk of VTE Aury Score 4 or greater; High Risk of VTE Coding Level of Care Code Est Patient Level 1 Diagnoses Current use of anticoagulant therapy Z79.01 Assessment & Plan Assessment & Plan (1) Current use of anticoagulant therapy: 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
[2024-01-12 09:11] LABS: Prothrombin Time Whole Bld POC 37.1 sec (11.1-13.5); ~PT, ~INR - Anti Coag Clinic 3.1 (0.9-1.1)
== END 2024-01-12 09:20 | disposition home or self-care (01) ==
LOC: HO.ACS 08:57
PROVIDERS: PCP Internal Medicine; Visit Provider Internal Medicine
DX: Z79.01 Long term (current) use of anticoagulants (principal)

== ENCOUNTER → 2024-01-12 08:57 | Outpatient (BNVA) | payer MEDICARE, SELFPAY | PROVIDERS: PCP Internal Medicine; Visit Provider Internal Medicine | DX: Z86.73 Personal history of transient ischemic attack (TIA), and cerebral infarction without residual deficits (principal); Z86.718 Personal history of other venous thrombosis and embolism; Z79.01 Long term (current) use of anticoagulants; Z51.81 Encounter for therapeutic drug level monitoring | CPT/HCPCS: 85610; 99211 ==

== ENCOUNTER 2024-01-25 10:08 | Outpatient (AMB) | payer MEDICARE, SELFPAY ==
[2024-01-25 10:10] VITALS: BP 108/64; BMI 31.0
--- NOTE | 2024-01-25 10:10 | A.OFFVIS_ITS ---
Vital Signs 01/25/24 10:10 01/25/24 10:15 Height 5 ft 6 in Weight 192 lb BMI 31.0 BP 108/64 110/60 Blood Pressure Location Lt brachial Rt brachial Position Sitting Sitting Intake Visit Reasons: 6 month follow up carotid Intake Note: overdue 6 mo follow up carotid US 10/25/23, pt states no complaints Accompanied by: Self / Same As Patient Allergies No Known Allergies [No Known Allergies*] Allergy (Verified 01/26/24 08:21) HPI HPI 6 month follow up carotid: Details: Very pleasant 72-year-old female presents for surveillance follow-up regarding her carotids. She has seen us previously for venous ulcers and also has lymphedema pumps. Reports that she is doing fairly well from that although the lymphedema pumps do not fit as well. She now presents for routine surveillance follow-up for her carotids. She is asymptomatic from a carotid perspective. [facility] Medical History Ulcer of right lower extremity Encounter to establish care Hyperactivity of bladder Transient cerebral ischemia Hypothyroidism History of TIAs Surgical History Hx of bladder repair surgery Family History Mother Diabetes Father COPD (chronic obstructive pulmonary disease) Social History Household Members: None Housing: House Do you presently have visiting nurse or other home services: No Alcohol intake: never Patient Tobacco Use Status: Never used Tobacco e-Cigarette/Vaping Use: Never Used Second Hand Smoke Exposure: No service: No Current occupational status: retired 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 Current occupational exposures/hazards: No Cognitive needs: Yes (cane, walker) Hearing needs: No Vision needs: No Review of Systems Const All systems reviewed & are unremarkable except as noted in HPI and below Reports no additional complaints ENT Reports Normal hearing present Card Denies chest pain, Denies chest pain at rest, Denies chest pain with activity and Denies pedal edema Resp Denies cough GI Denies abdominal pain Musc Denies abnormal gait, Denies muscle cramps and Denies radiating pain into limb Skin/Breast Denies skin ulcer and Denies wounds Neuro Reports Normal hearing present and Denies abnormal gait Psych Reports no additional complaints Physical Exam Vital Signs: Last Vital Signs BP 110/60 01/25/24 10:15 BMI result Body Mass Index 31.0 Const General: cooperative, healthy appearing and comfortable Orientation/consciousness: oriented to person, oriented to place and oriented to time HEENT Head: Yes normal to inspection Neck Neck: Yes normal visual inspection Carotids: no bruits Chest Chest palpation & inspection: normal inspection of the chest Resp Effort & Inspection: normal respiratory effort and able to speak in complete sentences Auscultation: clear to auscultation bilaterally, no crackles, no rales, no rhonchi and no wheezes Cardio Rate: regular rate Rhythm: regular rhythm Heart sounds: S1 normal heart sound present and S2 normal heart sound present Bruits: no carotid bruits Peripheral pulses: Peripheral pulses 2+ throughout GI Inspection: Yes normal to inspection Skin Wounds: no wounds Hair: normal Neuro General: oriented to person, oriented to place and oriented to time Cranial nerves: Yes CN's II-XII intact bilaterally and Yes Normal hearing present Cognition (Neuro): normal cognition Motor exam (neuro): 5/5 motor strength present throughout Extrem Other: venous exam: +1 edema General: No clubbing, No cyanosis and No edema Psych Appearance: grossly normal Mental Status: mental status grossly normal Speech and movement: Normal speech and movement present Results Reviewed Results Reviewed: Noninvasive carotid testing dated 10/25/2023 demonstrates right-sided 0-49% stenosis and left side 50-79% stenosis with a peak systolic of 179. Written report and images were reviewed. Assessment & Plan Assessment & Plan (1) Carotid stenosis, bilateral: Code(s): I65.23 - Occlusion and stenosis of bilateral carotid arteries Category: Medical Plan: In short patient has asymptomatic carotid disease. We have reviewed signs and symptoms of a stroke. We also discussed risk factor modification inclusive a healthy diet low in cholesterol. The patient will follow up with us with surveillance ultrasound of the carotids 1 year. Should there be any changes or signs or symptoms of a stroke we will be happy to see them back sooner. Thank you for allowing us to participate in this patient's care. If there are any questions or concerns please do not hesitate to contact us. (2) Lymphedema: Code(s): I89.0 - Lymphedema, not elsewhere classified Category: Medical Plan: Patient has lymphedema appears to be in reasonable control. We did discuss routine risk factor modification and conservative measures including compression elevation and exercise. In terms of her lymphedema pumps the appear to be not fitting as well. We have reached out to the lymphedema pump company and they will reassess the pumps for her. Thank you for allowing us to assist in her care. Orders: Orders US carotid duplex BI 1 Year I65.23 - Occlusion and stenosis of bilateral carotid arteries Coding Level of Care Code Est Pt Level 4 (06717) Diagnoses Carotid stenosis, bilateral I65.23 Lymphedema I89.0
[2024-01-25 10:15] VITALS: BP 110/60
== END 2024-01-25 10:45 | disposition home or self-care (01) ==
PROVIDERS: PCP Internal Medicine; Visit Provider Surgery Vascular Surgery
DX: I65.23 Occlusion and stenosis of bilateral carotid arteries (principal); I89.0 Lymphedema, not elsewhere classified
CPT/HCPCS: 99214

== ENCOUNTER → 2024-01-25 10:08 | Outpatient (BNVA) | payer MEDICARE, SELFPAY | PROVIDERS: PCP Internal Medicine; Visit Provider Surgery Vascular Surgery | DX: I65.23 Occlusion and stenosis of bilateral carotid arteries (principal); I89.0 Lymphedema, not elsewhere classified | CPT/HCPCS: 99212 ==

== ENCOUNTER 2024-01-26 08:20 | Outpatient (AMB) | payer MEDICARE, SELFPAY ==
--- NOTE | 2024-01-26 08:28 | MHC.OFFVISCO ---
Intake Intake Visit Reasons: Anticoagulation Allergies No Known Allergies [No Known Allergies*] Allergy (Verified 01/26/24 08:21) Medication List - Last Reconciled 01/26/24 by Vicenta Jung RN aspirin 81 mg PO DAILY carbamide peroxide 6.5% (Debrox) 5 drps otic (ear) right Q12H 4 days darifenacin ER 15 mg PO DAILY furosemide 20 mg PO DAILY levothyroxine 100 mcg PO DAILY nystatin-triamcinolone 100,000-0.1 unit/g-% 1 appl topical DAILY polyethylene glycol 3350 (Miralax) 17 grams PO DAILY PRN sennosides (senna) 8.6 mg PO BID simvastatin 40 mg PO BEDTIME triamcinolone acetonide 0.1% 1 appl topical DAILY 14 days warfarin 2.5 mg See Protocol PO DAILY Nursing Note INR: 3.0 in therapeutic range Medications and supplements reviewed No changes in health, diet, medications, or supplements, Denies any signs and symptoms of bleeding or bruising or clotting. Bleeding, bruising, clotting discussed Nutritional guidance given - ENOY PEAS AND OR CABBAGE WEEKLY IF ABLE Dose: KEEP SAME 5MG X 1 DAY/ 2.5MG X 6 DAYS F/U INR: 3 WEEKS Patient verbalizes understanding of instructions given Anti-Coag Initial Assessment Social Hx Patient Tobacco Use Status: Never used Tobacco alcohol intake: never Cardiovascular Hx: Varicose Veins Lung Disease HX: DVT/PE Endocrine Hx: Thyroid Disease Musculoskeletal Hx: Arthritis Blood Disorder Hx: Hyperlipidemia Hx: Kidney Disease, Bladder Disorders (overactive bladder) and Other (hx hematuria) Neurological Hx: Stroke/TIA Cancer HX: No Psych. Illness/Depression: No Coding Level of Care Code Est Patient Level 1 Diagnoses Current use of anticoagulant therapy Z79.01 Results AMB INR Fingerstick AMB INR Fingerstick 3.0 Last Edit by Vicenta Jung RN on 01/26/24 08:28 MANUAL ENTRY Assessment & Plan Assessment & Plan (1) Current use of anticoagulant therapy: Code(s): Z79.01 - senior care (current) use of anticoagulants Category: Medical
== END 2024-01-26 08:34 | disposition home or self-care (01) ==
LOC: HO.ACS 08:20
PROVIDERS: PCP Internal Medicine; Visit Provider Internal Medicine
DX: Z79.01 Long term (current) use of anticoagulants (principal)

== ENCOUNTER → 2024-01-26 08:20 | Outpatient (BNVA) | payer MEDICARE, SELFPAY | PROVIDERS: PCP Internal Medicine; Visit Provider Internal Medicine | DX: Z86.73 Personal history of transient ischemic attack (TIA), and cerebral infarction without residual deficits (principal); Z86.718 Personal history of other venous thrombosis and embolism; Z79.01 Long term (current) use of anticoagulants; Z51.81 Encounter for therapeutic drug level monitoring | CPT/HCPCS: 85610; 99211 ==

== ENCOUNTER 2024-02-16 08:15 | Outpatient (AMB) | payer MEDICARE, SELFPAY ==
--- NOTE | 2024-02-16 08:23 | MHC.OFFVISCO ---
Intake Intake Visit Reasons: Anticoagulation Allergies No Known Allergies [No Known Allergies*] Allergy (Verified 02/16/24 08:19) Medication List - Last Reconciled 02/16/24 by Kiera Pollock RN aspirin 81 mg PO DAILY carbamide peroxide 6.5% (Debrox) 5 drps otic (ear) right Q12H 4 days darifenacin ER 15 mg PO DAILY furosemide 20 mg PO DAILY levothyroxine 100 mcg PO DAILY nystatin-triamcinolone 100,000-0.1 unit/g-% 1 appl topical DAILY polyethylene glycol 3350 (Miralax) 17 grams PO DAILY PRN sennosides (senna) 8.6 mg PO BID simvastatin 40 mg PO BEDTIME triamcinolone acetonide 0.1% 1 appl topical DAILY 14 days warfarin 2.5 mg See Protocol PO DAILY Nursing Note INR 4.4-? out of therapeutic range of 2-3 Medications and supplements reviewed Patient status: no c.o- amb with cane, pt states recent diarrhea Medications or supplements: no changes Diet: decreased appetite Denies any signs and symptoms of bleeding or clotting or unusual bruising Bleeding, bruising, clotting discussed Nutritional guidance given: eat greens to lower, no reds for 3 days Dose: hold today then reduce weekly dosing to 2.5mg x 7 F/U INR Date : 1 week Patient verbalizing understanding of instructions given. Anti-Coag Initial Assessment Social Hx Patient Tobacco Use Status: Never used Tobacco alcohol intake: never Cardiovascular Hx: Varicose Veins Lung Disease HX: DVT/PE Endocrine Hx: Thyroid Disease Musculoskeletal Hx: Arthritis Blood Disorder Hx: Hyperlipidemia Hx: Kidney Disease, Bladder Disorders (overactive bladder) and Other (hx hematuria) Neurological Hx: Stroke/TIA Cancer HX: No Psych. 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
[2024-02-16 08:24] LABS: Prothrombin Time Whole Bld POC 52.8 sec (11.1-13.5); ~PT, ~INR - Anti Coag Clinic 4.4 (0.9-1.1)
== END 2024-02-16 08:35 | disposition home or self-care (01) ==
LOC: HO.ACS 08:15
PROVIDERS: PCP Internal Medicine; Visit Provider Internal Medicine
DX: Z79.01 Long term (current) use of anticoagulants (principal)

== ENCOUNTER → 2024-02-16 08:15 | Outpatient (BNVA) | payer MEDICARE, SELFPAY | PROVIDERS: PCP Internal Medicine; Visit Provider Internal Medicine | DX: Z86.718 Personal history of other venous thrombosis and embolism (principal); Z86.73 Personal history of transient ischemic attack (TIA), and cerebral infarction without residual deficits; Z79.01 Long term (current) use of anticoagulants; Z51.81 Encounter for therapeutic drug level monitoring | CPT/HCPCS: 85610; 99211 ==

== ENCOUNTER 2024-02-23 08:14 | Outpatient (AMB) | payer MEDICARE, SELFPAY ==
--- NOTE | 2024-02-23 08:23 | MHC.OFFVISCO ---
Intake Intake Visit Reasons: Anticoagulation Allergies No Known Allergies [No Known Allergies*] Allergy (Verified 02/23/24 08:18) Medication List - Last Reconciled 02/23/24 by Kiera Pollock RN aspirin 81 mg PO DAILY carbamide peroxide 6.5% (Debrox) 5 drps otic (ear) right Q12H 4 days darifenacin ER 15 mg PO DAILY furosemide 20 mg PO DAILY levothyroxine 100 mcg PO DAILY nystatin-triamcinolone 100,000-0.1 unit/g-% 1 appl topical DAILY polyethylene glycol 3350 (Miralax) 17 grams PO DAILY PRN sennosides (senna) 8.6 mg PO BID simvastatin 40 mg PO BEDTIME triamcinolone acetonide 0.1% 1 appl topical DAILY 14 days warfarin 2.5 mg See Protocol PO DAILY Nursing Note INR: 2.1- in therapeutic range of 2-3 Medications and supplements reviewed No changes in health, diet, medications, or supplements, Denies any signs and symptoms of bleeding or bruising or clotting. Bleeding, bruising, clotting discussed Nutritional guidance given Dose: 2.5mg x 7 F/U INR: 2 weeks Patient verbalizes understanding of instructions given pt states increased stress and occ diarrhea- enc to f/u with pcp Anti-Coag Initial Assessment Social Hx Patient Tobacco Use Status: Never used Tobacco alcohol intake: never Cardiovascular Hx: Varicose Veins Lung Disease HX: DVT/PE Endocrine Hx: Thyroid Disease Musculoskeletal Hx: Arthritis Blood Disorder Hx: Hyperlipidemia Hx: Kidney Disease, Bladder Disorders (overactive bladder) and Other (hx hematuria) Neurological Hx: Stroke/TIA Cancer HX: No Psych. Illness/Depression: No Coding Level of Care Code Est Patient Level 1 Diagnoses Current use of anticoagulant therapy Z79.01 Results AMB INR Fingerstick AMB INR Fingerstick 2.1 Last Edit by Kiera Pollock RN on 02/23/24 08:24 interface delay Assessment & Plan Assessment & Plan (1) Current use of anticoagulant therapy: Code(s): Z79.01 - group home (current) use of anticoagulants Category: Medical
[2024-02-23 08:24] LABS: Prothrombin Time Whole Bld POC 25.7 sec (11.1-13.5); ~PT, ~INR - Anti Coag Clinic 2.1 (0.9-1.1)
== END 2024-02-23 08:28 | disposition home or self-care (01) ==
LOC: HO.ACS 08:14
PROVIDERS: PCP Internal Medicine; Visit Provider Internal Medicine
DX: Z79.01 Long term (current) use of anticoagulants (principal)

== ENCOUNTER → 2024-02-23 08:14 | Outpatient (BNVA) | payer MEDICARE, SELFPAY | PROVIDERS: PCP Internal Medicine; Visit Provider Internal Medicine | DX: Z86.73 Personal history of transient ischemic attack (TIA), and cerebral infarction without residual deficits (principal); Z86.718 Personal history of other venous thrombosis and embolism; Z79.01 Long term (current) use of anticoagulants; Z51.81 Encounter for therapeutic drug level monitoring | CPT/HCPCS: 85610; 99211 ==

== ENCOUNTER 2024-03-01 08:15 | Outpatient (AMB) | payer MEDICARE, SELFPAY ==
--- NOTE | 2024-03-01 08:35 | MHC.OFFVISCO ---
Intake Intake Visit Reasons: Anticoagulation Allergies No Known Allergies [No Known Allergies*] Allergy (Verified 03/01/24 08:31) Medication List - Last Reconciled 03/01/24 by Francesca Donohue RN aspirin 81 mg PO DAILY carbamide peroxide 6.5% (Debrox) 5 drps otic (ear) right Q12H 4 days darifenacin ER 15 mg PO DAILY furosemide 20 mg PO DAILY levothyroxine 100 mcg PO DAILY nystatin-triamcinolone 100,000-0.1 unit/g-% 1 appl topical DAILY polyethylene glycol 3350 (Miralax) 17 grams PO DAILY PRN sennosides (senna) 8.6 mg PO BID simvastatin 40 mg PO BEDTIME triamcinolone acetonide 0.1% 1 appl topical DAILY 14 days warfarin 2.5 mg See Protocol PO DAILY Nursing Note NO CP,SOB,DIET/MED CHANGES,FALLS OR SX OF BLEEDING. CONTINUE 2.5MGM DAILY AND FOLLLOW-UP IN 3 WEEKS. GOOD UNDERSTANDING OF DOSING INSTR. Anti-Coag Initial Assessment Social Hx Patient Tobacco Use Status: Never used Tobacco alcohol intake: never Cardiovascular Hx: Varicose Veins Lung Disease HX: DVT/PE Endocrine Hx: Thyroid Disease Musculoskeletal Hx: Arthritis Blood Disorder Hx: Hyperlipidemia Hx: Kidney Disease, Bladder Disorders (overactive bladder) and Other (hx hematuria) Neurological Hx: Stroke/TIA Cancer HX: No Psych. Illness/Depression: No Coding Level of Care Code Est Patient Level 1 Diagnoses Current use of anticoagulant therapy Z79.01 Assessment & Plan Assessment & Plan (1) Current use of anticoagulant therapy: Code(s): Z79.01 - intermediate (current) use of anticoagulants Category: Medical
[2024-03-01 08:36] LABS: Prothrombin Time Whole Bld POC 29.7 sec (11.1-13.5); ~PT, ~INR - Anti Coag Clinic 2.5 (0.9-1.1)
== END 2024-03-01 08:41 | disposition home or self-care (01) ==
LOC: HO.ACS 08:15
PROVIDERS: PCP Internal Medicine; Visit Provider Internal Medicine
DX: Z79.01 Long term (current) use of anticoagulants (principal)

== ENCOUNTER → 2024-03-01 08:15 | Outpatient (BNVA) | payer MEDICARE, SELFPAY | PROVIDERS: PCP Internal Medicine; Visit Provider Internal Medicine | DX: Z86.73 Personal history of transient ischemic attack (TIA), and cerebral infarction without residual deficits (principal); Z86.718 Personal history of other venous thrombosis and embolism; Z79.01 Long term (current) use of anticoagulants; Z51.81 Encounter for therapeutic drug level monitoring | CPT/HCPCS: 85610; 99211 ==

== ENCOUNTER 2024-03-30 08:44 | Outpatient (AMB) | payer MEDICARE, SELFPAY ==
[2024-03-30 08:52] LABS: Prothrombin Time Whole Bld POC 26.5 sec (11.1-13.5); ~PT, ~INR - Anti Coag Clinic 2.2 (0.9-1.1)
--- NOTE | 2024-03-30 08:57 | MHC.OFFVISCO ---
Intake Intake Visit Reasons: Anticoagulation Allergies No Known Allergies [No Known Allergies*] Allergy (Verified 03/30/24 08:48) Medication List - Last Reconciled 03/30/24 by Gillian Richmond RN aspirin 81 mg PO DAILY carbamide peroxide 6.5% (Debrox) 5 drps otic (ear) right Q12H 4 days darifenacin ER 15 mg PO DAILY furosemide 20 mg PO DAILY levothyroxine 100 mcg PO DAILY nystatin-triamcinolone 100,000-0.1 unit/g-% 1 appl topical DAILY polyethylene glycol 3350 (Miralax) 17 grams PO DAILY PRN sennosides (senna) 8.6 mg PO BID simvastatin 40 mg PO BEDTIME triamcinolone acetonide 0.1% 1 appl topical DAILY 14 days warfarin 2.5 mg See Protocol PO DAILY Nursing Note INR: 2.2 in therapeutic range of 2-3 Medications and supplements reviewed No changes in health, diet, medications, or supplements, Denies any signs and symptoms of bleeding or bruising or clotting. Bleeding, bruising, clotting discussed Nutritional guidance given Dose: 2.5mg daily F/U INR: 4 weeks Patient verbalizes understanding of instructions given Anti-Coag Initial Assessment Social Hx Patient Tobacco Use Status: Never used Tobacco alcohol intake: never Cardiovascular Hx: Varicose Veins Lung Disease HX: DVT/PE Endocrine Hx: Thyroid Disease Musculoskeletal Hx: Arthritis Blood Disorder Hx: Hyperlipidemia Hx: Kidney Disease, Bladder Disorders (overactive bladder) and Other (hx hematuria) Neurological Hx: Stroke/TIA Cancer HX: No Psych. 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
== END 2024-03-30 08:59 | disposition home or self-care (01) ==
LOC: HO.ACS 08:44
PROVIDERS: PCP Internal Medicine; Visit Provider Internal Medicine
DX: Z79.01 Long term (current) use of anticoagulants (principal)

== ENCOUNTER → 2024-03-30 08:44 | Outpatient (BNVA) | payer MEDICARE, SELFPAY | PROVIDERS: PCP Internal Medicine; Visit Provider Internal Medicine | DX: Z86.73 Personal history of transient ischemic attack (TIA), and cerebral infarction without residual deficits (principal); Z86.718 Personal history of other venous thrombosis and embolism; Z79.01 Long term (current) use of anticoagulants; Z51.81 Encounter for therapeutic drug level monitoring | CPT/HCPCS: 85610; 99211 ==

== ENCOUNTER 2024-04-11 08:54 | Outpatient (AMB) | payer MEDICARE, SELFPAY ==
--- NOTE | 2024-04-11 08:58 | A.OFFPC_ITS ---
Vital Signs 04/11/24 08:59 Height 5 ft 6 in Weight 192 lb BMI 31.0 BP 132/86 Blood Pressure Location Lt brachial Position Sitting Intake Visit Reasons: annual exam Intake Note: Patient here for a physical exam Director Audience Marketing Required: No Accompanied by: Self / Same As Patient Allergies No Known Allergies [No Known Allergies*] Allergy (Verified 04/11/24 09:10) Medication List - Last Reconciled 04/11/24 by Susie Neal MD aspirin 81 mg PO DAILY carbamide peroxide 6.5% (Debrox) 5 drps otic (ear) right Q12H 4 days darifenacin ER 15 mg PO DAILY furosemide 20 mg PO DAILY levothyroxine 100 mcg PO DAILY nystatin-triamcinolone 100,000-0.1 unit/g-% 1 appl topical DAILY polyethylene glycol 3350 (Miralax) 17 grams PO DAILY PRN sennosides (senna) 8.6 mg PO BID simvastatin 40 mg PO BEDTIME triamcinolone acetonide 0.1% 1 appl topical DAILY 14 days warfarin 2.5 mg See Protocol PO DAILY Tobacco use date assessed: 09/23/23 Fall risk assessment: No Falls in past year Last assessed Fall Risk: 04/11/24 Dental Screening Dental Screen Date: 04/11/24 Did you have a dental visit in the last 12 months?: No Did you have a dental problem in the last 6 months where you did not have access to dental care?: No Was dental information given to patient?: Patient has dentist HPI HPI Comments History of Present Illness Details This is a 73-year-old female with embolic stroke in 2019 and chronic kidney disease stage 3 that comes for her physical exam. History of DVT in the past and is on Coumadin follow by Coumadin clinic. Denies any active bleeding. Declines colonoscopy but says that she has a Cologuard at home and is willing to do it. Declines pneumonia vaccine. Declines flu vaccine. Will order mammogram and DEXA scan. No chest pain or shortness on breath. Walks with a cane for gait stability. [facility] Medical History (Updated 04/11/24 @ 09:32 by Susie Neal MD) Ulcer of right lower extremity Encounter to establish care Hyperactivity of bladder Transient cerebral ischemia Hypothyroidism History of TIAs Surgical History Hx of bladder repair surgery Family History (Updated 04/11/24 @ 09:18 by Susie Neal MD) Mother Diabetes Father COPD (chronic obstructive pulmonary disease) Son Colon cancer, Onset Age: 38 Daughter Myocardial infarction Social History Household Members: None Housing: House Do you presently have visiting nurse or other home services: No Alcohol intake: never Patient Tobacco Use Status: Never used Tobacco e-Cigarette/Vaping Use: Never Used Second Hand Smoke Exposure: No service: No Current occupational status: retired 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 1. Little interest or pleasure in doing things: not at all 2. Feeling down, depressed, or hopeless: not at all 3. Trouble falling or staying asleep, or sleeping too much: not at all 4. Feeling tired or having little energy: not at all 5. Poor appetite or overeating: not at all 6. Feeling bad about yourself - or that you are a failure or have let yourself or your family down: not at all 7. Trouble concentrating on things, such as reading the newspaper or watching television: not at all 8. Moving or speaking so slowly that other people could have noticed. Or the opposite - being so fidgety or restless that you have been moving around a lot more than usual: not at all 9. Thoughts that you would be better off or of hurting yourself in some way: not at all Total score: 0 Depression Screening Interpretation: Negative Depression Screening Done: Yes 88700 - PHQ-9 Billing: Yes Source: Developed by Drs. Pelon Castillo, Cristina Ty, Calvin Licea and colleagues, with an educational suyapa from [employer]. Thrive Questionnaire Date Thrive assessed: 04/11/24 I am a: Patient What is your living situation today?: I choose not to answer this question Within the past 12 months, did the food you bought not last and you didn't have the money to get more?: I choose not to answer this question Within the past 12 months, did you worry whether your food would run out before you got money to buy more?: I choose not to answer this question Do you have trouble paying for medicines?: I choose not to answer this question Do you have trouble getting transportation to medical appointments?: I choose not to answer this question Do you have trouble paying your heating and electricity bill?: I choose not to answer this question Do you have trouble taking care of your child, family member or friend?: I choose not to answer this question Do you have trouble with day-to-day activities such as bathing, preparing meals, shopping, managing finances, etc.?: I choose not to answer this question Are you currently unemployed and looking for a job?: I choose not to answer this question Are you interested in more education?: I choose not to answer this question Please select the resources that you would like help with: None Currently or been in a relationship where the following occur: I choose not to answer THRIVE Score: 0 AUDIT C Alcohol Use Questionnaire (AUDIT-C) 1. How often do you have a drink containing alcohol?: Never Total Score: 0 CANDACE-7 AMB Questionnaire CANDACE-7 Date CANDACE - 7 assessed: 04/11/24 Feeling nervous, anxious, or on edge: 0 = Not at all Not being able to stop or control worryin = Not at all Worrying too much about different things: 0 = Not at all Trouble relaxin = Not at all Being so restless that it is hard to sit still: 0 = Not at all Becoming easily annoyed or irritable: 0 = Not at all Feeling afraid as if something awful might happen: 0 = Not at all Total CANDACE-7 score (0-4 normal; 5-9 mild; 10-14 moderate; 15-21 severe): 0 Source: Developed by Drs. Pelon Castillo, Cristina Ty, Calvin Licea and colleagues, with an educational suyapa from [employer]. CANDACE-7 Assessment Billing CANDACE-7 Assessment Tool: CANDACE-7 Assessment 58982 Review of Systems Const All systems reviewed & are unremarkable except as noted in HPI and below Card Denies chest pain at rest, Denies chest pain with activity, Denies edema, Denies irregular heart rhythm, Denies claudication, Denies dyspnea, Denies dyspnea on exertion, Denies orthopnea, Denies paroxysmal nocturnal dyspnea and Denies slow heart rate Resp Denies cough, Denies dyspnea and Denies dyspnea on exertion GI Denies abdominal pain, Denies change in bowel habits, Denies excessive flatus, Denies nausea and Denies vomiting Denies urinary incontinence, Denies urinary hesitancy and Denies urinary urgency Musc Denies abnormal gait, Denies atrophy, Denies deformity and Denies limited range of motion Skin/Breast Denies bleeding lesions, Denies changing lesions and Denies rash Neuro Denies abnormal gait and Denies lack of coordination Physical exam (Primary Care) Vital Signs: Last Vital Signs BP 132/86 04/11/24 08:59 BMI result Body Mass Index 31.0 BMI Assessment/Plan discussion: High BMI High, discussed plan: lifestyle, weight reduction, dietary and physical activity Tobacco/Smoking Status: Tobacco use Status Tobacco use date assessed 09/23/23 04/11/24 09:07 Patient Tobacco Use Status Never used Tobacco 04/11/24 09:07 e-Cigarette/Vaping Use Never Used 04/11/24 09:07 PHQ-9: PHQ-9 Score PHQ-9: Total score 0 04/11/24 09:11 Depression Screening Interpretation: Negative Thrive Assessment: Date of Thrive Assessment Date Thrive assessed 04/11/24 04/11/24 09:07 Currently or been in a relationship where the following occur: I choose not to answer Const General: cooperative Limitations: ambulation with cane HENMT Head: Yes normal to inspection, Yes normocephalic and Yes atraumatic Ears: external ears normal Eyes General: appearance normal, both eyes and all related structures Eyelids: Yes eyelids normal Conjunctivae: conjunctivae normal Neck Neck: Yes normal visual inspection and Yes supple Resp Effort & Inspection: normal respiratory effort Auscultation: clear to auscultation bilaterally Cardio Jugular venous distension: no JVD Rate: regular rate Rhythm: regular rhythm Heart sounds: S1 normal heart sound present and S2 normal heart sound present GI Inspection: Yes normal to inspection Palpation (GI): Soft to palpation and nontender Auscultation: normal bowel sounds Skin General skin exam: no rashes or lesions noted Neuro General: no focal motor deficits Extrem General: Yes full ROM Psych Appearance: grossly normal Office Procedures Flu Questionnaire Does the patient have a severe egg allergy?: No Immunizations Fluarix Triv [id number] (PF) 45 mcg (15 mcg x 3)/0.5 mL IM syringe Performing Provider: Susie Neal MD [facility] Documented (not given) by: KERVIN Anderson on 04/11/24 09:08 Reason Not Given: Patient Refused Coding Level of Care Code Est Pt Prev Care >65y(64946) Diagnoses Adult general medical exam Z00.00 Cerebrovascular accident (CVA) due to embolism of cerebral artery I63.40 CVA mechanism: embolism Precerebral and cerebral artery: unspecified cerebral artery Stage 3a chronic kidney disease N18.31 Chronic kidney disease stage 3 subtype: stage 3a (GFR 45-59) Additional Codes CANDACE-7 Assessment Billing - CANDACE-7 Assessment Tool: CANDACE-7 Assessment 97356 ([id number]) Time Spent (min) 30 Assessment & Plan Assessment & Plan (1) Adult general medical exam: Comment: Covid-19 IZ Manny x1. DEXA declined. PNA IZ declined. Code(s): Z00.00 - Encounter for general adult medical examination without abnormal findings Category: Medical Plan: Repeat in a year. (2) Stroke: Comment: Embolic cerebral infarct 2019 Code(s): I63.9 - Cerebral infarction, unspecified Category: Medical Qualifiers: CVA mechanism: embolism Precerebral and cerebral artery: unspecified cerebral artery Qualified Code(s): I63.40 - Cerebral infarction due to embolism of unspecified cerebral artery Plan: Continue Coumadin. (3) CKD (chronic kidney disease) stage 3, GFR 30-59 ml/min: Code(s): N18.30 - Chronic kidney disease, stage 3 unspecified Category: Medical Qualifiers: Chronic kidney disease stage 3 subtype: stage 3a (GFR 45-59) Qualified Code(s): N18.31 - Chronic kidney disease, stage 3a Plan: Avoid NSAIDs. Keep blood pressure less than 130/80. Repeat CMP. Orders: Orders MM tomosynthesis screening BI Today Z12.31 - Encounter for screening mammogram for malignant neoplasm of breast XR DEXA axial skeleton Today Z78.0 - Asymptomatic menopausal state Lipid Panel Today E78.5 - Hyperlipidemia, unspecified Vitamin D 25-OH Total Today E55.9 - Vitamin D deficiency, unspecified Comprehensive [place]. Panel Fast Today Z00.00 - Encounter for general adult medical examination without abnormal findings Influenza [id number] Immunization Today Z23 - Encounter for immunization Vitamin B12 and Folate Today E53.8 - Deficiency of other specified B group vitamins Thyroid Stimulating Hormone Today E03.9 - Hypothyroidism, unspecified Medications: Refilled nystatin-triamcinolone 100,000-0.1 unit/g-% 1 appl topical DAILY 30 grams 0RF L03.115 - Cellulitis of right lower limb triamcinolone acetonide 0.1% 1 appl topical DAILY 14 days 15 grams 0RF L28.2 - Other prurigo
[2024-04-11 08:59] VITALS: BP 132/86; BMI 31.0
== END 2024-04-11 09:28 | disposition home or self-care (01) ==
PROVIDERS: PCP Internal Medicine; Visit Provider Internal Medicine
DX: Z00.00 Encounter for general adult medical examination without abnormal findings (principal); I63.40 Cerebral infarction due to embolism of unspecified cerebral artery; N18.31 Chronic kidney disease, stage 3a; Z23 Encounter for immunization

== ENCOUNTER → 2024-04-11 08:54 | Outpatient (BNVA) | payer MEDICARE, SELFPAY | PROVIDERS: PCP Internal Medicine; Visit Provider Internal Medicine | DX: Z00.00 Encounter for general adult medical examination without abnormal findings (principal); N18.31 Chronic kidney disease, stage 3a; Z86.73 Personal history of transient ischemic attack (TIA), and cerebral infarction without residual deficits; Z86.718 Personal history of other venous thrombosis and embolism; Z79.01 Long term (current) use of anticoagulants; Z28.21 Immunization not carried out because of patient refusal | CPT/HCPCS: 90471; 96127; 99397 ==

== ENCOUNTER 2024-05-05 08:22 | Outpatient (AMB) | payer MEDICARE, SELFPAY ==
[2024-05-05 08:43] LABS: Prothrombin Time Whole Bld POC 27.5 sec (11.1-13.5); ~PT, ~INR - Anti Coag Clinic 2.3 (0.9-1.1)
--- NOTE | 2024-05-05 08:49 | MHC.OFFVISCO ---
Intake Intake Visit Reasons: Anticoagulation Allergies No Known Allergies [No Known Allergies*] Allergy (Verified 05/05/24 08:29) Medication List - Last Reconciled 05/05/24 by Vicenta Jung RN aspirin 81 mg PO DAILY carbamide peroxide 6.5% (Debrox) 5 drps otic (ear) right Q12H 4 days darifenacin ER 15 mg PO DAILY furosemide 20 mg PO DAILY levothyroxine 100 mcg PO DAILY nystatin-triamcinolone 100,000-0.1 unit/g-% 1 appl topical DAILY polyethylene glycol 3350 (Miralax) 17 grams PO DAILY PRN sennosides (senna) 8.6 mg PO BID simvastatin 40 mg PO BEDTIME triamcinolone acetonide 0.1% 1 appl topical DAILY 14 days warfarin 2.5 mg See Protocol PO DAILY Nursing Note INR: 2.3 in therapeutic range Medications and supplements reviewed No changes in health, diet, medications, or supplements, Denies any signs and symptoms of bleeding or bruising or clotting. Bleeding, bruising, clotting discussed Nutritional guidance given Dose: keep same dose 2.5mg daily F/U INR: 1 month Patient verbalizes understanding of instructions given Anti-Coag Initial Assessment Social Hx Patient Tobacco Use Status: Never used Tobacco alcohol intake: never Cardiovascular Hx: Varicose Veins Lung Disease HX: DVT/PE Endocrine Hx: Thyroid Disease Musculoskeletal Hx: Arthritis Blood Disorder Hx: Hyperlipidemia Hx: Kidney Disease, Bladder Disorders (overactive bladder) and Other (hx hematuria) Neurological Hx: Stroke/TIA Cancer HX: No Psych. Illness/Depression: No Coding Level of Care Code Est Patient Level 1 Diagnoses Current use of anticoagulant therapy Z79.01 Assessment & Plan Assessment & Plan (1) Current use of anticoagulant therapy: Code(s): Z79.01 - prison (current) use of anticoagulants Category: Medical
== END 2024-05-05 08:54 | disposition home or self-care (01) ==
LOC: HO.ACS 08:22
PROVIDERS: PCP Internal Medicine; Visit Provider Internal Medicine
DX: Z79.01 Long term (current) use of anticoagulants (principal)

== ENCOUNTER → 2024-05-05 08:22 | Outpatient (BNVA) | payer MEDICARE, SELFPAY | PROVIDERS: PCP Internal Medicine; Visit Provider Internal Medicine | DX: Z86.73 Personal history of transient ischemic attack (TIA), and cerebral infarction without residual deficits (principal); Z86.718 Personal history of other venous thrombosis and embolism; Z79.01 Long term (current) use of anticoagulants; Z51.81 Encounter for therapeutic drug level monitoring | CPT/HCPCS: 85610; 99211 ==

== ENCOUNTER 2024-06-09 08:41 | Outpatient (AMB) | payer MEDICARE, SELFPAY ==
--- NOTE | 2024-06-09 08:53 | MHC.OFFVISCO ---
Intake Intake Visit Reasons: Anticoagulation Allergies No Known Allergies [No Known Allergies*] Allergy (Verified 06/09/24 08:42) Medication List - Last Reconciled 06/09/24 by Vicenta Jung RN aspirin 81 mg PO DAILY carbamide peroxide 6.5% (Debrox) 5 drps otic (ear) right Q12H 4 days darifenacin ER 15 mg PO DAILY furosemide 20 mg PO DAILY levothyroxine 100 mcg PO DAILY nystatin-triamcinolone 100,000-0.1 unit/g-% 1 appl topical DAILY polyethylene glycol 3350 (Miralax) 17 grams PO DAILY PRN sennosides (senna) 8.6 mg PO BID simvastatin 40 mg PO BEDTIME triamcinolone acetonide 0.1% 1 appl topical DAILY 14 days warfarin 2.5 mg See Protocol PO DAILY Nursing Note INR 1.6? out of therapeutic range Medications and supplements reviewed Patient status: Had a GI upset - diarrhea 2 days ago - may not have absorbed the warfarin Medications or supplements: no change Diet: better now Denies any signs and symptoms of bleeding or clotting or unusual bruising Bleeding, bruising, clotting discussed Nutritional guidance given: eat healthy as you can ( does not eat fruits and vegetables) Dose: 5mg today then 2.5mg daily F/U INR Date : 10 days per pt request ?? Patient verbalizing understanding of instructions given. Anti-Coag Initial Assessment Social Hx Patient Tobacco Use Status: Never used Tobacco alcohol intake: never Cardiovascular Hx: Varicose Veins Lung Disease HX: DVT/PE Endocrine Hx: Thyroid Disease Musculoskeletal Hx: Arthritis Blood Disorder Hx: Hyperlipidemia Hx: Kidney Disease, Bladder Disorders (overactive bladder) and Other (hx hematuria) Neurological Hx: Stroke/TIA Cancer HX: No Psych. Illness/Depression: No Coding Level of Care Code Est Patient Level 1 Diagnoses Current use of anticoagulant therapy Z79.01 Results AMB INR Fingerstick AMB INR Fingerstick 1.6 Last Edit by Vicenta Jung RN on 06/09/24 08:49 MANUAL ENTRY Assessment & Plan Assessment & Plan (1) Current use of anticoagulant therapy: Code(s): Z79.01 - [employer] customer service (current) use of anticoagulants Category: Medical
[2024-06-09 09:27] LABS: Prothrombin Time Whole Bld POC 19.8 sec (11.1-13.5); ~PT, ~INR - Anti Coag Clinic 1.6 (0.9-1.1)
== END 2024-06-09 08:56 | disposition home or self-care (01) ==
LOC: HO.ACS 08:41
PROVIDERS: PCP Internal Medicine; Visit Provider Internal Medicine
DX: Z79.01 Long term (current) use of anticoagulants (principal)

== ENCOUNTER → 2024-06-09 08:41 | Outpatient (BNVA) | payer MEDICARE, SELFPAY | PROVIDERS: PCP Internal Medicine; Visit Provider Internal Medicine | DX: Z86.73 Personal history of transient ischemic attack (TIA), and cerebral infarction without residual deficits (principal); Z86.718 Personal history of other venous thrombosis and embolism; Z79.01 Long term (current) use of anticoagulants; Z51.81 Encounter for therapeutic drug level monitoring | CPT/HCPCS: 85610; 99211 ==

== ENCOUNTER 2024-06-20 10:40 | Outpatient (AMB) | payer MEDICARE, SELFPAY ==
--- NOTE | 2024-06-20 10:53 | MHC.OFFVIS ---
Vital Signs 06/20/24 10:55 Height 5 ft 6 in Weight 192 lb BMI 31.0 Intake Visit Reasons: Add-on for LE wound Intake Note: pt states she has Right LE non-healing wound. Pt states PCP gave her a cream that helps w/ the discoloration but isnt sure if she needs an Abx. Pt states no dressing currently and it's not draining Accompanied by: Self / Same As Patient Allergies No Known Allergies [No Known Allergies*] Allergy (Verified 06/09/24 08:42) HPI HPI Add-on for LE wound: Details: Zahraa, a pleasant 73-year-old female patient, is presenting today due to concerns for a right lower extremity wound. She states that approximately 2 weeks ago she was attempting to put on her compression stockings and scraped the right side of her lower extremity with her now, causing a wound. She states she has been placing Triamcolone cream on the area daily and states it has been getting better. She has not been using her lymphedema pumps due to the wound and increased redness and swelling bilaterally. She has not been wearing her compression stockings either due to the wound. She has been keeping it covered with wraps. [facility] Medical History Ulcer of right lower extremity Encounter to establish care Hyperactivity of bladder Transient cerebral ischemia Hypothyroidism History of TIAs Surgical History Hx of bladder repair surgery Family History Mother Diabetes Father COPD (chronic obstructive pulmonary disease) Son Colon cancer, Onset Age: 38 Daughter Myocardial infarction Social History Household Members: None Housing: House Do you presently have visiting nurse or other home services: No Alcohol intake: never Patient Tobacco Use Status: Never used Tobacco e-Cigarette/Vaping Use: Never Used Second Hand Smoke Exposure: No service: No Current occupational status: retired 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 Current occupational exposures/hazards: No Cognitive needs: Yes (cane, walker) Hearing needs: No Vision needs: No Review of Systems Const Reports as per HPI and Denies weakness ENT Reports Normal hearing present and Denies dizziness Card Reports as per HPI, Denies chest pain, Denies chest pain at rest, Denies chest pain with activity, Denies dyspnea and Denies dyspnea on exertion Resp Reports as per HPI, Denies cough, Denies dyspnea and Denies dyspnea on exertion GI Reports as per HPI, Denies abdominal pain, Denies nausea and Denies vomiting Musc Denies numbness Skin/Breast Reports as per HPI, Denies erythema and Denies wounds Neuro Reports Normal hearing present, Denies dizziness, Denies numbness, Denies Sensory deficit (Neuro) and Denies weakness Psych Reports no additional complaints Endo Reports no additional complaints Physical Exam Vital Signs: BMI result Body Mass Index 31.0 Const General: healthy appearing and no acute distress Orientation/consciousness: patient oriented x3 HEENT Head: Yes normal to inspection Ears: hearing grossly normal bilaterally Mouth: Normal oral and palatal mucosa present Resp Effort & Inspection: normal respiratory effort and able to speak in complete sentences Auscultation: clear to auscultation bilaterally Cardio Jugular venous distension: no JVD Rate: regular rate Rhythm: regular rhythm Heart sounds: S1 normal heart sound present and S2 normal heart sound present Bruits: no abdominal aortic bruits, no carotid bruits, no femoral bruits and no renal bruits Peripheral pulses: Peripheral pulses 2+ throughout GI Inspection: Yes normal to inspection Palpation (GI): No Abdominal aortic bruit present Skin General skin exam: no rashes or lesions noted Wounds: no wounds Hair: normal Neuro General: patient oriented x3 Cranial nerves: Yes Normal hearing present Cognition (Neuro): normal cognition Gait exam (Neuro): Normal gait present Motor exam (neuro): 5/5 motor strength present throughout Sensory Exam: No Sensory deficit (Neuro) Extrem Other: Right lateral lower extremity: Small, approximately 2 cm by 1-1/2 cm scabbed over wound with surrounding erythema. Site is not warm to the touch. There is no draining or bleeding noted. No slough noted. Bilateral lower extremities: 3+ peripheral edema noted. Discoloration noted from the tibial tuberosities area to the toes. General: Yes normal to inspection, Yes full ROM, Yes capillary refill normal and Yes normal gait Assessment & Plan Assessment & Plan (1) Stasis leg ulcer: Code(s): I83.009 - Varicose veins of unspecified lower extremity with ulcer of unspecified site; L97.909 - Non-pressure chronic ulcer of unspecified part of unspecified lower leg with unspecified severity Category: Medical Qualifiers: Laterality: right Qualified Code(s): I83.019 - Varicose veins of right lower extremity with ulcer of unspecified site; L97.919 - Non-pressure chronic ulcer of unspecified part of right lower leg with unspecified severity Plan: Zahraa is presenting today for concerns of a small wound to the right lateral lower extremity. She states she scraped it with the nail accidentally couple of weeks ago while putting on compression stockings. She has been using Triamcolone cream daily, she states which has been helping. The site is scabbed over without any draining or bleeding. We applied Xeroform and an Allevyn bandage, to be left on for 48h. We discussed to continue keeping it covered, especially when wearing clothes that may rub up against it or she is going out. We discussed after the 48h she can change to bacitracin/Neosporin and a bandaid. We discussed that if the site opens up, becomes red, warm, or she has any concerns for infection, to please reach back out to our office. We discussed that she is able to continue to use her lymphedema pumps over the site as long as the site is covered. We discussed she could also use the compression stockings as well, again as long as the site is covered. We will follow up with her only as needed. If there are any questions or concerns, please do not hesitate to reach out to us. Coding Level of Care Code Est Pt Level 4 (08182) Diagnoses Venous stasis ulcer of right lower extremity I83.019; L97.919 Laterality: right Comment Wound care
[2024-06-20 10:55] VITALS: BMI 31.0
== END 2024-06-20 11:19 | disposition home or self-care (01) ==
PROVIDERS: PCP Internal Medicine; Visit Provider Physician Assistant Surgical
DX: I83.019 Varicose veins of right lower extremity with ulcer of unspecified site (principal); L97.919 Non-pressure chronic ulcer of unspecified part of right lower leg with unspecified severity
CPT/HCPCS: 99214

== ENCOUNTER → 2024-06-20 10:40 | Outpatient (BNVA) | payer MEDICARE, SELFPAY | PROVIDERS: PCP Internal Medicine; Visit Provider Physician Assistant Surgical | DX: I83.218 Varicose veins of right lower extremity with both ulcer of other part of lower extremity and inflammation (principal); L97.919 Non-pressure chronic ulcer of unspecified part of right lower leg with unspecified severity | CPT/HCPCS: 99212 ==

== ENCOUNTER 2024-06-29 09:02 | Outpatient (AMB) | payer MEDICARE, SELFPAY ==
[2024-06-29 09:14] LABS: Prothrombin Time Whole Bld POC 23.3 sec (11.1-13.5); ~PT, ~INR - Anti Coag Clinic 1.9 (0.9-1.1)
--- NOTE | 2024-06-29 09:21 | MHC.OFFVISCO ---
Intake Intake Visit Reasons: Anticoagulation Allergies No Known Allergies [No Known Allergies*] Allergy (Verified 06/29/24 09:07) Medication List - Last Reconciled 06/29/24 by Vicenta Jung RN aspirin 81 mg PO DAILY carbamide peroxide 6.5% (Debrox) 5 drps otic (ear) right Q12H 4 days darifenacin ER 15 mg PO DAILY furosemide 20 mg PO DAILY levothyroxine 100 mcg PO DAILY nystatin-triamcinolone 100,000-0.1 unit/g-% 1 appl topical DAILY polyethylene glycol 3350 (Miralax) 17 grams PO DAILY PRN sennosides (senna) 8.6 mg PO BID simvastatin 40 mg PO BEDTIME triamcinolone acetonide 0.1% 1 appl topical DAILY 14 days warfarin 2.5 mg See Protocol PO DAILY Nursing Note INR: 1.9 in therapeutic range-previous INR 1.6 Medications and supplements reviewed * May have eaten differenly over the holidays, had a family tragedy -nephew unexpactedly Denies any signs and symptoms of bleeding or bruising or clotting. Bleeding, bruising, clotting discussed Nutritional guidance given - no greens today Dose: increase weekly dose 3.75mg x 1 day/ 2.5 mg x 6 days F/U INR: 2 weeks Patient verbalizes understanding of instructions given Anti-Coag Initial Assessment Social Hx Patient Tobacco Use Status: Never used Tobacco alcohol intake: never Cardiovascular Hx: Varicose Veins Lung Disease HX: DVT/PE Endocrine Hx: Thyroid Disease Musculoskeletal Hx: Arthritis Blood Disorder Hx: Hyperlipidemia Hx: Kidney Disease, Bladder Disorders (overactive bladder) and Other (hx hematuria) Neurological Hx: Stroke/TIA Cancer HX: No Psych. Illness/Depression: No Coding Level of Care Code Est Patient Level 1 Diagnoses Current use of anticoagulant therapy Z79.01 Results AMB INR Fingerstick AMB INR Fingerstick 1.9 Last Edit by Vicenta Jung RN on 06/29/24 09:16 MANUAL ENTRY Assessment & Plan Assessment & Plan (1) Current use of anticoagulant therapy: Code(s): Z79.01 - intermediate (current) use of anticoagulants Category: Medical
== END 2024-06-29 09:24 | disposition home or self-care (01) ==
LOC: HO.ACS 09:02
PROVIDERS: PCP Internal Medicine; Visit Provider Internal Medicine
DX: Z79.01 Long term (current) use of anticoagulants (principal)

== ENCOUNTER → 2024-06-29 09:02 | Outpatient (BNVA) | payer MEDICARE, SELFPAY | PROVIDERS: PCP Internal Medicine; Visit Provider Internal Medicine | DX: Z86.73 Personal history of transient ischemic attack (TIA), and cerebral infarction without residual deficits (principal); Z86.718 Personal history of other venous thrombosis and embolism; Z79.01 Long term (current) use of anticoagulants; Z51.81 Encounter for therapeutic drug level monitoring | CPT/HCPCS: 85610; 99211 ==

== ENCOUNTER 2024-07-25 08:58 | Outpatient (AMB) | payer MEDICARE, SELFPAY ==
--- NOTE | 2024-07-25 09:04 | MHC.OFFVISCO ---
Intake Intake Visit Reasons: Anticoagulation Allergies No Known Allergies [No Known Allergies*] Allergy (Verified 07/25/24 08:59) Medication List - Last Reconciled 07/25/24 by Kiera Pollock RN aspirin 81 mg PO DAILY carbamide peroxide 6.5% (Debrox) 5 drps otic (ear) right Q12H 4 days darifenacin ER 15 mg PO DAILY furosemide 20 mg PO DAILY levothyroxine 100 mcg PO DAILY nystatin-triamcinolone 100,000-0.1 unit/g-% 1 appl topical DAILY polyethylene glycol 3350 (Miralax) 17 grams PO DAILY PRN sennosides (senna) 8.6 mg PO BID simvastatin 40 mg PO BEDTIME triamcinolone acetonide 0.1% 1 appl topical DAILY 14 days warfarin 2.5 mg See Protocol PO DAILY Nursing Note INR 1.9-? out of therapeutic range of 2-3 Medications and supplements reviewed Patient status: denies missed doses Medications or supplements: no changes Diet: appetite fair Denies any signs and symptoms of bleeding or clotting or unusual bruising Bleeding, bruising, clotting discussed Nutritional guidance given: no greens for 2 days, eat reds to raise Dose: 3,75mg today then cont 2.5mg x 6, 3.75mg x 1 F/U INR Date : 2 weeks? Patient verbalizing understanding of instructions given. Anti-Coag Initial Assessment Social Hx Patient Tobacco Use Status: Never used Tobacco alcohol intake: never Cardiovascular Hx: Varicose Veins Lung Disease HX: DVT/PE Endocrine Hx: Thyroid Disease Musculoskeletal Hx: Arthritis Blood Disorder Hx: Hyperlipidemia Hx: Kidney Disease, Bladder Disorders (overactive bladder) and Other (hx hematuria) Neurological Hx: Stroke/TIA Cancer HX: No Psych. Illness/Depression: No Coding Level of Care Code Est Patient Level 1 Diagnoses Current use of anticoagulant therapy Z79.01 Results AMB INR Fingerstick AMB INR Fingerstick 1.9 Last Edit by Kiera Pollock RN on 07/25/24 09:06 interface delay Assessment & Plan Assessment & Plan (1) Current use of anticoagulant therapy: Code(s): Z79.01 - shelter (current) use of anticoagulants Category: Medical
[2024-07-25 09:19] LABS: Prothrombin Time Whole Bld POC 23.1 sec (11.1-13.5); ~PT, ~INR - Anti Coag Clinic 1.9 (0.9-1.1)
== END 2024-07-25 09:11 | disposition home or self-care (01) ==
LOC: HO.ACS 08:58
PROVIDERS: PCP Internal Medicine; Visit Provider Internal Medicine
DX: Z79.01 Long term (current) use of anticoagulants (principal)

== ENCOUNTER → 2024-07-25 08:58 | Outpatient (BNVA) | payer MEDICARE, SELFPAY | PROVIDERS: PCP Internal Medicine; Visit Provider Internal Medicine | DX: Z86.73 Personal history of transient ischemic attack (TIA), and cerebral infarction without residual deficits (principal); Z86.718 Personal history of other venous thrombosis and embolism; Z79.01 Long term (current) use of anticoagulants; Z51.81 Encounter for therapeutic drug level monitoring | CPT/HCPCS: 85610; 99211 ==

== ENCOUNTER 2024-08-15 09:04 | Outpatient (AMB) | payer MEDICARE, SELFPAY ==
[2024-08-15 09:12] LABS: Prothrombin Time Whole Bld POC 34.2 sec (11.1-13.5); ~PT, ~INR - Anti Coag Clinic 2.9 (0.9-1.1)
--- NOTE | 2024-08-15 09:16 | MHC.OFFVISCO ---
Intake Intake Visit Reasons: Anticoagulation Allergies No Known Allergies [No Known Allergies*] Allergy (Verified 08/15/24 09:06) Medication List - Last Reconciled 08/15/24 by Gillian Richmond RN aspirin 81 mg PO DAILY carbamide peroxide 6.5% (Debrox) 5 drps otic (ear) right Q12H 4 days darifenacin ER 15 mg PO DAILY furosemide 20 mg PO DAILY levothyroxine 100 mcg PO DAILY nystatin-triamcinolone 100,000-0.1 unit/g-% 1 appl topical DAILY polyethylene glycol 3350 (Miralax) 17 grams PO DAILY PRN sennosides (senna) 8.6 mg PO BID simvastatin 40 mg PO BEDTIME triamcinolone acetonide 0.1% 1 appl topical DAILY 14 days warfarin 2.5 mg See Protocol PO DAILY Nursing Note INR: 2.9 in therapeutic range of 2-3 Medications and supplements reviewed No changes in health, diet, medications, or supplements, Denies any signs and symptoms of bleeding or bruising or clotting. Bleeding, bruising, clotting discussed Nutritional guidance given to have a serving of greens today. Pt does not like greens but will have hot milk chocolate. Dose: 2.5mg X 6 days and 3.75mg X 1 day F/U INR: 2 weeks Patient verbalizes understanding of instructions given Anti-Coag Initial Assessment Social Hx Patient Tobacco Use Status: Never used Tobacco alcohol intake: never Cardiovascular Hx: Varicose Veins Lung Disease HX: DVT/PE Endocrine Hx: Thyroid Disease Musculoskeletal Hx: Arthritis Blood Disorder Hx: Hyperlipidemia Hx: Kidney Disease, Bladder Disorders (overactive bladder) and Other (hx hematuria) Neurological Hx: Stroke/TIA Cancer HX: No Psych. Illness/Depression: No Coding Level of Care Code Est Patient Level 1 Diagnoses Current use of anticoagulant therapy Z79.01 Results AMB INR Fingerstick AMB INR Fingerstick 2.9 Last Edit by Gillian Richmond RN on 08/15/24 09:11 interface delay Assessment & Plan Assessment & Plan (1) Current use of anticoagulant therapy: Code(s): Z79.01 - nursing home (current) use of anticoagulants Category: Medical
== END 2024-08-15 09:19 | disposition home or self-care (01) ==
LOC: HO.ACS 09:04
PROVIDERS: PCP Internal Medicine; Visit Provider Internal Medicine
DX: Z79.01 Long term (current) use of anticoagulants (principal)

== ENCOUNTER → 2024-08-15 09:04 | Outpatient (BNVA) | payer MEDICARE, SELFPAY | PROVIDERS: PCP Internal Medicine; Visit Provider Internal Medicine | DX: Z86.73 Personal history of transient ischemic attack (TIA), and cerebral infarction without residual deficits (principal); Z86.718 Personal history of other venous thrombosis and embolism; Z79.01 Long term (current) use of anticoagulants; Z51.81 Encounter for therapeutic drug level monitoring | CPT/HCPCS: 85610; 99211 ==

== ENCOUNTER 2024-09-05 09:01 | Outpatient (AMB) | payer MEDICARE, SELFPAY ==
--- NOTE | 2024-09-05 09:07 | MHC.OFFVISCO ---
Intake Intake Visit Reasons: Anticoagulation Allergies No Known Allergies [No Known Allergies*] Allergy (Verified 09/05/24 09:03) Medication List - Last Reconciled 09/05/24 by Kiera Pollock RN aspirin 81 mg PO DAILY carbamide peroxide 6.5% (Debrox) 5 drps otic (ear) right Q12H 4 days darifenacin ER 15 mg PO DAILY furosemide 20 mg PO DAILY levothyroxine 100 mcg PO DAILY nystatin-triamcinolone 100,000-0.1 unit/g-% 1 appl topical DAILY polyethylene glycol 3350 (Miralax) 17 grams PO DAILY PRN sennosides (senna) 8.6 mg PO BID simvastatin 40 mg PO BEDTIME triamcinolone acetonide 0.1% 1 appl topical DAILY 14 days warfarin 2.5 mg See Protocol PO DAILY Nursing Note INR: 2.3- in therapeutic range of 2-3 Medications and supplements reviewed- no changes No changes in health, diet, medications, or supplements, Denies any signs and symptoms of bleeding or bruising or clotting. Bleeding, bruising, clotting discussed Nutritional guidance given Dose: 3.75mg x 1. 2.5mg x 6 F/U INR: 3 weeks Patient verbalizes understanding of instructions given pt states having urinary incont- sees urology Anti-Coag Initial Assessment Social Hx Patient Tobacco Use Status: Never used Tobacco alcohol intake: never Cardiovascular Hx: Varicose Veins Lung Disease HX: DVT/PE Endocrine Hx: Thyroid Disease Musculoskeletal Hx: Arthritis Blood Disorder Hx: Hyperlipidemia Hx: Kidney Disease, Bladder Disorders (overactive bladder) and Other (hx hematuria) Neurological Hx: Stroke/TIA Cancer HX: No Psych. 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
[2024-09-05 09:08] LABS: Prothrombin Time Whole Bld POC 27.2 sec (11.1-13.5); ~PT, ~INR - Anti Coag Clinic 2.3 (0.9-1.1)
== END 2024-09-05 09:13 | disposition home or self-care (01) ==
LOC: HO.ACS 09:01
PROVIDERS: PCP Internal Medicine; Visit Provider Internal Medicine
DX: Z79.01 Long term (current) use of anticoagulants (principal)

== ENCOUNTER → 2024-09-05 09:01 | Outpatient (BNVA) | payer MEDICARE, SELFPAY | PROVIDERS: PCP Internal Medicine; Visit Provider Internal Medicine | DX: Z86.73 Personal history of transient ischemic attack (TIA), and cerebral infarction without residual deficits (principal); Z86.718 Personal history of other venous thrombosis and embolism; Z79.01 Long term (current) use of anticoagulants; Z51.81 Encounter for therapeutic drug level monitoring | CPT/HCPCS: 85610; 99211 ==

== ENCOUNTER 2024-09-13 13:38 | Outpatient (REF) | payer MEDICARE, SELFPAY ==
--- NOTE | ~2024-09-13 | MM_ITS ---
EXAMINATION: DXA BONE DENSITY AXIAL HISTORY: Estrogen deficiency TECHNIQUE: [employer] Dual energy absorptiometry (DEXA) of the lumbar spine, total left hip, and femoral neck was performed. COMPARISON: There are no prior studies for comparison. FINDINGS: The bone mineral density of the lumbar spine is 0.970 with a T-score of -1.7, and a Z-score of -0.8. This is indicative of osteopenia. The bone mineral density of the left total hip is 0.718 with a T-score of -2.3, and a Z-score of -1.2. This is indicative of osteopenia. The bone mineral density of the left femoral neck is 0.710 with a T-score of -2.4, and a Z-score of -1.0. This is indicative of osteopenia. FRACTURE RISK: The FRAX index suggests a risk of major osteoporotic fracture of 14.5%, and of hip fracture 3.8%. MM/XR DEXA axial skeleton IMPRESSION: Based on bone mineral density, and according to World Health Organization (WHO) criteria, the diagnosis is consistent with osteopenia. All bone density values are in grams per centimeter squared (g/cm2). Statistically, 68% of repeat scans fall within 1 SD (+/- 0.010 g/cm2 for AP spine L1-L4) and 1 SD (+/- 0.012 g/cm2 for femur total) FRAX is a trademark of the [employer] [place] for Metabolic Bone Disease, a World Health Organization (WHO) Collaborating Center. Electronically signed by: Pelon Mancuso MD 09/13/2024 03:07 PM EDT
== END 2024-09-13 13:39 | disposition home or self-care (01) ==
LOC: HO.MAMMO 13:38
PROVIDERS: PCP Internal Medicine; Visit Provider Internal Medicine
DX: Z12.31 Encounter for screening mammogram for malignant neoplasm of breast (principal); Z13.820 Encounter for screening for osteoporosis; Z78.0 Asymptomatic menopausal state
CPT/HCPCS: 77063; 77067; 77080

== ENCOUNTER → 2024-09-13 14:30 | Outpatient (BNV) | payer MEDICARE, SELFPAY | PROVIDERS: PCP Internal Medicine; Visit Provider Radiology Diagnostic Radiology | DX: E28.39 Other primary ovarian failure (principal) | CPT/HCPCS: 77080 ==

== ENCOUNTER 2024-09-26 09:02 | Outpatient (AMB) | payer MEDICARE, SELFPAY ==
--- NOTE | 2024-09-26 09:18 | MHC.OFFVISCO ---
Intake Intake Visit Reasons: Anticoagulation Allergies No Known Allergies [No Known Allergies*] Allergy (Verified 09/26/24 09:04) Medication List - Last Reconciled 09/26/24 by Gillian Richmond RN aspirin 81 mg PO DAILY calcium carbonate-vitamin D3 500 mg-5 mcg (200 unit) (Oyster Shell Calcium-Vitamin D3) 1 tab PO BID 90 days carbamide peroxide 6.5% (Debrox) 5 drps otic (ear) right Q12H 4 days darifenacin ER 15 mg PO DAILY furosemide 20 mg PO DAILY levothyroxine 100 mcg PO DAILY mirabegron ER (Myrbetriq) 25 mg PO DAILY nystatin-triamcinolone 100,000-0.1 unit/g-% 1 appl topical DAILY polyethylene glycol 3350 (Miralax) 17 grams PO DAILY PRN sennosides (senna) 8.6 mg PO BID simvastatin 40 mg PO BEDTIME triamcinolone acetonide 0.1% 1 appl topical DAILY 14 days warfarin 2.5 mg See Protocol PO DAILY Nursing Note Pt to ACS with the use of a cane. INR: 2.6 in therapeutic range of 2-3 Medications and supplements reviewed No changes in diet, medications, or supplements, Denies any signs and symptoms of bleeding or bruising or clotting. Bleeding, bruising, clotting discussed Nutritional guidance given Dose: same dose of 2.5mg X 6 days and 3.75mg x 1 day () F/U INR: 4 weeks Patient verbalizes understanding of instructions given Anti-Coag Initial Assessment Social Hx Patient Tobacco Use Status: Never used Tobacco alcohol intake: never Cardiovascular Hx: Varicose Veins Lung Disease HX: DVT/PE Endocrine Hx: Thyroid Disease Musculoskeletal Hx: Arthritis Blood Disorder Hx: Hyperlipidemia Hx: Kidney Disease, Bladder Disorders (overactive bladder) and Other (hx hematuria) Neurological Hx: Stroke/TIA Cancer HX: No Psych. 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
[2024-09-26 09:24] LABS: Prothrombin Time Whole Bld POC 31.1 sec (11.1-13.5); ~PT, ~INR - Anti Coag Clinic 2.6 (0.9-1.1)
== END 2024-09-26 09:24 | disposition home or self-care (01) ==
LOC: HO.ACS 09:02
PROVIDERS: PCP Internal Medicine; Visit Provider Internal Medicine Medical Oncology
DX: Z79.01 Long term (current) use of anticoagulants (principal)

== ENCOUNTER → 2024-09-26 09:02 | Outpatient (BNVA) | payer MEDICARE, SELFPAY | PROVIDERS: PCP Internal Medicine; Visit Provider Internal Medicine Medical Oncology | DX: Z86.73 Personal history of transient ischemic attack (TIA), and cerebral infarction without residual deficits (principal); Z86.718 Personal history of other venous thrombosis and embolism; Z79.01 Long term (current) use of anticoagulants; Z51.81 Encounter for therapeutic drug level monitoring | CPT/HCPCS: 85610; 99211 ==

== ENCOUNTER 2024-11-01 09:31 | Outpatient (AMB) | payer MEDICARE, SELFPAY ==
--- NOTE | 2024-11-01 10:00 | MHC.OFFVISCO ---
Intake Intake Visit Reasons: Anticoagulation Allergies No Known Allergies [No Known Allergies*] Allergy (Verified 11/01/24 09:49) Medication List - Last Reconciled 11/01/24 by Francesca Donohue RN aspirin 81 mg PO DAILY calcium carbonate-vitamin D3 500 mg-5 mcg (200 unit) (Oyster Shell Calcium-Vitamin D3) 1 tab PO BID 90 days carbamide peroxide 6.5% (Debrox) 5 drps otic (ear) right Q12H 4 days darifenacin ER 15 mg PO DAILY furosemide 20 mg PO DAILY levothyroxine 100 mcg PO DAILY mirabegron ER (Myrbetriq) 25 mg PO DAILY nystatin-triamcinolone 100,000-0.1 unit/g-% 1 appl topical DAILY polyethylene glycol 3350 (Miralax) 17 grams PO DAILY PRN sennosides (senna) 8.6 mg PO BID simvastatin 40 mg PO BEDTIME triamcinolone acetonide 0.1% 1 appl topical DAILY 14 days warfarin 2.5 mg See Protocol PO DAILY Nursing Note NO CP,SOB,DIET/MED CHANGES,FALLS OR SX OF BLEEDING. CONTINUE PRESENT DOSING AND FOLLOW-UP IN 4 WEEKS. GOOD UNDERSTANDING OF DOSING INSTR. Anti-Coag Initial Assessment Social Hx Patient Tobacco Use Status: Never used Tobacco alcohol intake: never Cardiovascular Hx: Varicose Veins Lung Disease HX: DVT/PE Endocrine Hx: Thyroid Disease Musculoskeletal Hx: Arthritis Blood Disorder Hx: Hyperlipidemia Hx: Kidney Disease, Bladder Disorders (overactive bladder) and Other (hx hematuria) Neurological Hx: Stroke/TIA Cancer HX: No Psych. Illness/Depression: No Coding Level of Care Code Est Patient Level 1 Diagnoses Current use of anticoagulant therapy Z79.01 Results AMB INR Fingerstick AMB INR Fingerstick 2.1 Last Edit by Francesca Donohue RN on 11/01/24 09:57 Assessment & Plan Assessment & Plan (1) Current use of anticoagulant therapy: Code(s): Z79.01 - half-way (current) use of anticoagulants Category: Medical
[2024-11-01 10:45] LABS: Prothrombin Time Whole Bld POC 24.6 sec (11.1-13.5); ~PT, ~INR - Anti Coag Clinic 2.1 (0.9-1.1)
== END 2024-11-01 10:01 | disposition home or self-care (01) ==
LOC: HO.ACS 09:31
PROVIDERS: PCP Internal Medicine; Visit Provider Internal Medicine Medical Oncology
DX: Z79.01 Long term (current) use of anticoagulants (principal)

== ENCOUNTER → 2024-11-01 09:31 | Outpatient (BNVA) | payer MEDICARE, SELFPAY | PROVIDERS: PCP Internal Medicine; Visit Provider Internal Medicine Medical Oncology | DX: Z86.718 Personal history of other venous thrombosis and embolism (principal); Z79.01 Long term (current) use of anticoagulants; Z51.81 Encounter for therapeutic drug level monitoring | CPT/HCPCS: 85610; 99211 ==

== ENCOUNTER 2024-11-29 09:03 | Outpatient (AMB) | payer MEDICARE, SELFPAY ==
[2024-11-29 09:12] LABS: Prothrombin Time Whole Bld POC 25.9 sec (11.1-13.5); ~PT, ~INR - Anti Coag Clinic 2.2 (0.9-1.1)
--- NOTE | 2024-11-29 09:20 | MHC.OFFVISCO ---
Intake Intake Visit Reasons: Anticoagulation Allergies No Known Allergies [No Known Allergies*] Allergy (Verified 11/29/24 09:06) Medication List - Last Reconciled 11/29/24 by Francesca Donohue RN aspirin 81 mg PO DAILY calcium carbonate-vitamin D3 500 mg-5 mcg (200 unit) (Oyster Shell Calcium-Vitamin D3) 1 tab PO BID 90 days carbamide peroxide 6.5% (Debrox) 5 drps otic (ear) right Q12H 4 days darifenacin ER 15 mg PO DAILY furosemide 20 mg PO DAILY levothyroxine 100 mcg PO DAILY mirabegron ER (Myrbetriq) 25 mg PO DAILY nystatin-triamcinolone 100,000-0.1 unit/g-% 1 appl topical DAILY polyethylene glycol 3350 (Miralax) 17 grams PO DAILY PRN sennosides (senna) 8.6 mg PO BID simvastatin 40 mg PO BEDTIME triamcinolone acetonide 0.1% 1 appl topical DAILY 14 days warfarin 2.5 mg See Protocol PO DAILY Nursing Note NO CP,SOB,DIET/MED CHANGES,FALLS OR SX OF BLEEDING. CONTINUE PRESENT DOSE AND FOLLOW-UP IN 4 WEEKS. GOOD UNDERSTANDING OF DOSING INSTR. Anti-Coag Initial Assessment Social Hx Patient Tobacco Use Status: Never used Tobacco alcohol intake: never Cardiovascular Hx: Varicose Veins Lung Disease HX: DVT/PE Endocrine Hx: Thyroid Disease Musculoskeletal Hx: Arthritis Blood Disorder Hx: Hyperlipidemia Hx: Kidney Disease, Bladder Disorders (overactive bladder) and Other (hx hematuria) Neurological Hx: Stroke/TIA Cancer HX: No Psych. 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
== END 2024-11-29 09:22 | disposition home or self-care (01) ==
LOC: HO.ACS 09:03
PROVIDERS: PCP Internal Medicine; Visit Provider Internal Medicine Medical Oncology
DX: Z79.01 Long term (current) use of anticoagulants (principal)

== ENCOUNTER → 2024-11-29 09:03 | Outpatient (BNVA) | payer MEDICARE, SELFPAY | PROVIDERS: PCP Internal Medicine; Visit Provider Internal Medicine Medical Oncology | DX: Z86.73 Personal history of transient ischemic attack (TIA), and cerebral infarction without residual deficits (principal); Z86.718 Personal history of other venous thrombosis and embolism; Z79.01 Long term (current) use of anticoagulants; Z51.81 Encounter for therapeutic drug level monitoring | CPT/HCPCS: 85610; 99211 ==

== ENCOUNTER 2024-12-27 09:07 | Outpatient (AMB) | payer MEDICARE, SELFPAY ==
[2024-12-27 09:14] LABS: Prothrombin Time Whole Bld POC 17.1 sec (11.1-13.5); ~PT, ~INR - Anti Coag Clinic 1.4 (0.9-1.1)
--- NOTE | 2024-12-27 09:25 | MHC.OFFVISCO ---
Intake Intake Visit Reasons: Anticoagulation Allergies No Known Allergies (No Known Allergies*) Allergy (Verified 12/27/24 09:08) Medication List - Last Reconciled 12/27/24 by Francesca Donohue RN aspirin 81 mg PO DAILY calcium carbonate-vitamin D3 500 mg-5 mcg (200 unit) (Oyster Shell Calcium-Vitamin D3) 1 tab PO BID 90 days carbamide peroxide 6.5% (Debrox) 5 drps otic (ear) right Q12H 4 days darifenacin ER 15 mg PO DAILY furosemide 20 mg PO DAILY levothyroxine 100 mcg PO DAILY mirabegron ER (Myrbetriq) 25 mg PO DAILY nystatin-triamcinolone 100,000-0.1 unit/g-% 1 appl topical DAILY polyethylene glycol 3350 (Miralax) 17 grams PO DAILY PRN sennosides (senna) 8.6 mg PO BID simvastatin 40 mg PO BEDTIME triamcinolone acetonide 0.1% 1 appl topical DAILY 14 days warfarin 2.5 mg See Protocol PO DAILY Nursing Note PT.MISSED 1 DOSE THIS WEEK. BOOST TO 5MGM TODAY AND TOMORROW, THEN RESUME USUAL DOSE AND FOLLOW-UP IN 1 WEE. NO GREENS 2-3 DAYS,INCREASE REDS. GOOD UNDERSTANDING OF DOSING INSTR.VERB. PCP, ([facility])NOTIFIED OF LOW INR AND PLAN OF CARE. Anti-Coag Initial Assessment Social Hx Patient Tobacco Use Status: Never used Tobacco alcohol intake: never Cardiovascular Hx: Varicose Veins Lung Disease HX: DVT/PE Endocrine Hx: Thyroid Disease Musculoskeletal Hx: Arthritis Blood Disorder Hx: Hyperlipidemia Hx: Kidney Disease, Bladder Disorders (overactive bladder) and Other (hx hematuria) Neurological Hx: Stroke/TIA Cancer HX: No Psych. 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
== END 2024-12-27 09:29 | disposition home or self-care (01) ==
LOC: HO.ACS 09:07
PROVIDERS: PCP Internal Medicine; Visit Provider Internal Medicine Medical Oncology
DX: Z79.01 Long term (current) use of anticoagulants (principal)

== ENCOUNTER → 2024-12-27 09:07 | Outpatient (BNVA) | payer MEDICARE, SELFPAY | PROVIDERS: PCP Internal Medicine; Visit Provider Internal Medicine Medical Oncology | DX: Z79.01 Long term (current) use of anticoagulants (principal) | CPT/HCPCS: 85610; 99211 ==

== ENCOUNTER 2025-01-04 08:02 | Outpatient (AMB) | payer MEDICARE, SELFPAY ==
[2025-01-04 08:10] LABS: Prothrombin Time Whole Bld POC 38.3 sec (11.1-13.5); ~PT, ~INR - Anti Coag Clinic 3.2 (0.9-1.1)
--- NOTE | 2025-01-04 08:13 | MHC.OFFVISCO ---
Intake Intake Visit Reasons: Anticoagulation Allergies No Known Allergies (No Known Allergies*) Allergy (Verified 01/04/25 08:04) Medication List - Last Reconciled 01/04/25 by Gillian Richmond RN aspirin 81 mg PO DAILY calcium carbonate-vitamin D3 500 mg-5 mcg (200 unit) (Oyster Shell Calcium-Vitamin D3) 1 tab PO BID 90 days carbamide peroxide 6.5% (Debrox) 5 drps otic (ear) right Q12H 4 days darifenacin ER 15 mg PO DAILY furosemide 20 mg PO DAILY levothyroxine 100 mcg PO DAILY mirabegron ER (Myrbetriq) 25 mg PO DAILY nystatin-triamcinolone 100,000-0.1 unit/g-% 1 appl topical DAILY polyethylene glycol 3350 (Miralax) 17 grams PO DAILY PRN sennosides (senna) 8.6 mg PO BID simvastatin 40 mg PO BEDTIME triamcinolone acetonide 0.1% 1 appl topical DAILY 14 days warfarin 2.5 mg See Protocol PO DAILY Nursing Note INR: 3.2?out of therapeutic range of 2-3 Medications and supplements reviewed Patient status: no changes Medications or supplements: no changes Diet: usual diet for pt Denies any signs and symptoms of bleeding or clotting or unusual bruising Bleeding, bruising, clotting discussed Nutritional guidance given: to have a serving of greens today Dose: 2.5mg X 6 days and 3.75mg X 1 day F/U INR Date: 3 weeks?? Patient verbalizing understanding of instructions given. Anti-Coag Initial Assessment Social Hx Patient Tobacco Use Status: Never used Tobacco alcohol intake: never Cardiovascular Hx: Varicose Veins Lung Disease HX: DVT/PE Endocrine Hx: Thyroid Disease Musculoskeletal Hx: Arthritis Blood Disorder Hx: Hyperlipidemia Hx: Kidney Disease, Bladder Disorders (overactive bladder) and Other (hx hematuria) Neurological Hx: Stroke/TIA Cancer HX: No Psych. Illness/Depression: No Coding Level of Care Code Est Patient Level 1 Diagnoses Current use of anticoagulant therapy Z79.01 Assessment & Plan Assessment & Plan (1) Current use of anticoagulant therapy: Code(s): Z79.01 - [facility] (current) use of anticoagulants Category: Medical
== END 2025-01-04 08:17 | disposition home or self-care (01) ==
LOC: HO.ACS 08:02
PROVIDERS: PCP Internal Medicine; Visit Provider Internal Medicine Medical Oncology
DX: Z79.01 Long term (current) use of anticoagulants (principal)

== ENCOUNTER → 2025-01-04 08:02 | Outpatient (BNVA) | payer MEDICARE, SELFPAY | PROVIDERS: PCP Internal Medicine; Visit Provider Internal Medicine Medical Oncology | DX: Z86.73 Personal history of transient ischemic attack (TIA), and cerebral infarction without residual deficits (principal); Z86.718 Personal history of other venous thrombosis and embolism; Z79.01 Long term (current) use of anticoagulants; Z51.81 Encounter for therapeutic drug level monitoring | CPT/HCPCS: 85610; 99211 ==

== ENCOUNTER 2025-01-24 08:35 | Outpatient (AMB) | payer MEDICARE, SELFPAY ==
--- OUTSIDE RECORDS SUMMARY | 2025-01-24 08:45 | XMS_ITS | Clinical Summary ---
Author Organization [facility] Address [address] [place], [place] [id number] Phone Care Team Providers Care Joiner Name Role Phone Unavailable Primary Care Provider Unavailabl e Social History Tobacco Use Types Packs/Day Years Used Date Smoking Tobacco: Never Assessed Education Answer Date Recorded Are you interested in more education? Not on jose e 10/16/2022 Are you concerned about learning? Not on file 10/16/2022 No 10/16/2022 No 10/16/2022 Digital Access Answer Date Recorded No 11/17/2022 No 11/17/2022 Reliable internet access at home? Not on file 11/17/2022 Device with a working camera? Not on file Comments Unknown Sex and Gender Information Value Date Recorded Sex Assigned at Not on file Legal Sex Female 3:27 PM EST Gender Identity Not on file Sexual Orientation Not on file Plan of Treatment Not on file Medical Devices Not on file Additional Source Comments The information contained in this document represents components of the legal health record. It is not the complete legal health record.[facility]
--- OUTSIDE RECORDS SUMMARY | 2025-01-24 08:45 | XMS_ITS ---
Author Name [facility] Organization Unknown Care Team Organization Name Specialty Phone Email Start Date End Da te [facility] 04/28/2022
[2025-01-24 08:50] LABS: Prothrombin Time Whole Bld POC 37.0 sec (11.1-13.5); ~PT, ~INR - Anti Coag Clinic 3.1 (0.9-1.1)
--- NOTE | 2025-01-24 08:58 | MHC.OFFVISCO ---
Intake Intake Visit Reasons: Anticoagulation Allergies No Known Allergies (No Known Allergies*) Allergy (Verified 01/24/25 08:44) Medication List - Last Reconciled 01/24/25 by Francesca Donohue RN aspirin 81 mg PO DAILY calcium carbonate-vitamin D3 500 mg-5 mcg (200 unit) (Oyster Shell Calcium-Vitamin D3) 1 tab PO BID 90 days carbamide peroxide 6.5% (Debrox) 5 drps otic (ear) right Q12H 4 days darifenacin ER 15 mg PO DAILY furosemide 20 mg PO DAILY levothyroxine 100 mcg PO DAILY mirabegron ER (Myrbetriq) 25 mg PO DAILY nystatin-triamcinolone 100,000-0.1 unit/g-% 1 appl topical DAILY polyethylene glycol 3350 (Miralax) 17 grams PO DAILY PRN sennosides (senna) 8.6 mg PO BID simvastatin 40 mg PO BEDTIME triamcinolone acetonide 0.1% 1 appl topical DAILY 14 days warfarin 2.5 mg See Protocol PO DAILY Nursing Note NO CP,SOB,DIET/MED CHANGES,FALLS OR SX OF BLEEDING. CONTINUE PRESENT DOSE AND FOLLOW-UP IN 4 WEEKS GREEN TODAY AND 2-3X WEEKLY GOOD UNDERSTANDING OF DOSING INSTR. Anti-Coag Initial Assessment Social Hx Patient Tobacco Use Status: Never used Tobacco alcohol intake: never Cardiovascular Hx: Varicose Veins Lung Disease HX: DVT/PE Endocrine Hx: Thyroid Disease Musculoskeletal Hx: Arthritis Blood Disorder Hx: Hyperlipidemia Hx: Kidney Disease, Bladder Disorders (overactive bladder) and Other (hx hematuria) Neurological Hx: Stroke/TIA Cancer HX: No Psych. Illness/Depression: No Coding Level of Care Code Est Patient Level 1 Diagnoses Current use of anticoagulant therapy Z79.01 Assessment & Plan Assessment & Plan (1) Current use of anticoagulant therapy: Code(s): Z79.01 - detention (current) use of anticoagulants Category: Medical
== END 2025-01-24 09:01 | disposition home or self-care (01) ==
LOC: HO.ACS 08:35
PROVIDERS: PCP Internal Medicine; Visit Provider Internal Medicine Medical Oncology
DX: Z79.01 Long term (current) use of anticoagulants (principal)

== ENCOUNTER → 2025-01-24 08:35 | Outpatient (BNVA) | payer MEDICARE, SELFPAY | PROVIDERS: PCP Internal Medicine; Visit Provider Internal Medicine Medical Oncology | DX: I69.90 Unspecified sequelae of unspecified cerebrovascular disease (principal); I82.402 Acute embolism and thrombosis of unspecified deep veins of left lower extremity; Z51.81 Encounter for therapeutic drug level monitoring; Z79.01 Long term (current) use of anticoagulants | CPT/HCPCS: 85610; 99211 ==

== ENCOUNTER 2025-01-25 10:11 | Outpatient (REF) | payer MEDICARE, SELFPAY ==
--- NOTE | ~2025-01-25 | US_ITS ---
CLINICAL HISTORY: I65.23 - Occlusion and stenosis of bilateral carotid arteries US bilateral carotid duplex Comparison: US/SR - US CAROTID DOPPLER BILATERAL - 10/25/23 09:53 EDT Findings: Intimal thickening of the bilateral carotid system, calcified plaques noted at the carotid bulbs, ICA/ECA origins, mild soft plaque noted in the left carotid bulb, bilateral carotid systems are patent, no significant stenosis on grayscale ultrasound. Left vertebral artery demonstrates bunny waveform with biphasic morphology, unchanged. Peak systolic velocities: Right CCA: 111 cm/s Right ICA: 144 cm/s ICA/CCA ratio: 1.16 Right ECA: Unremarkable Right vertebral and subclavian artery flow antegrade. Left CCA: 83 cm/s Left ICA: 179 cm/s ICA/CCA ratio: 1.79 Left ECA: Unremarkable Left vertebral and subclavian artery flow antegrade. Impression: 1. Increased peak systolic velocities of the bilateral internal carotid arteries, grossly stable moderate stenosis (50-79%) bilaterally. 2. 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 3. Further evaluation by CT angiography with IV contrast will be helpful if warranted. This document has been electronically signed by: Noelle Benton MD on 01/25/2025 15:45:29
--- OUTSIDE RECORDS SUMMARY | 2025-01-25 10:41 | XMS_ITS | Clinical Summary ---
Author Organization [facility] Address [address] [place], [place] [id number] Phone Care Team Providers Care Value Analyst Name Role Phone Unavailable Primary Care Provider [...] It is not the complete legal health record.[facility]
== END 2025-01-25 10:12 | disposition home or self-care (01) ==
LOC: HO.US 10:11
PROVIDERS: PCP Internal Medicine; Visit Provider Surgery Vascular Surgery
DX: I65.23 Occlusion and stenosis of bilateral carotid arteries (principal)
CPT/HCPCS: 93880

== ENCOUNTER → 2025-01-25 10:12 | Outpatient (BNV) | payer MEDICARE, SELFPAY | PROVIDERS: PCP Internal Medicine; Visit Provider Radiology Diagnostic Radiology | DX: I65.23 Occlusion and stenosis of bilateral carotid arteries (principal) | CPT/HCPCS: 93880 ==

== ENCOUNTER 2025-02-27 12:53 | Outpatient (AMB) | payer MEDICARE, SELFPAY ==
--- NOTE | 2025-02-27 12:53 | MHC.OFFVIS ---
Vital Signs 02/27/25 12:54 02/27/25 12:54 Height 5 ft 6 in 5 ft 6 in Weight 192 lb 192 lb BMI 31.0 31.0 BP 130/78 138/72 Blood Pressure Location Rt brachial Lt brachial Position Sitting Sitting Intake Visit Reasons: 1y follow up s/p Carotid US 01/25/25 Intake Note: 1 yr follow up carotid US 01/25/25. Pt states she has LE swelling and a recurring ulcer on the Right LE. States compression socks help. Also states she doesn't use her lymphedema pumps due to the difficulty using them. 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 The patient has a history of carotid stenosis, with recent ultrasound findings indicating stable conditions with no significant changes from previous evaluations. She now presents for follow-up with noninvasive testing. The patient also reports chronic swelling in the legs, attributed to tight socks and chronic venous insufficiency. She wears compression stockings daily, which help manage the swelling, although sores occasionally develop on her legs. Lymphedema pumps have been used in the past, but the patient finds them difficult to use consistently. She continues to manage her condition with compression stockings and elevating her legs. [facility] Medical History Ulcer of right lower extremity Encounter to establish care Hyperactivity of bladder Transient cerebral ischemia Hypothyroidism History of TIAs Surgical History Hx of bladder repair surgery Family History Mother Diabetes Father COPD (chronic obstructive pulmonary disease) Son Colon cancer, Onset Age: 38 Daughter Myocardial infarction Social History Household Members: None Housing: House Do you presently have visiting nurse or other home services: No Alcohol intake: never Patient Tobacco Use Status: Never used Tobacco e-Cigarette/Vaping Use: Never Used Second Hand Smoke Exposure: No service: No Current occupational status: retired 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 Current occupational exposures/hazards: No Cognitive needs: Yes (cane, walker) Hearing needs: No Vision needs: No Review of Systems Const All systems reviewed & are unremarkable except as noted in HPI and below Reports no additional complaints ENT Reports Normal hearing present Card Denies chest pain, Denies chest pain at rest, Denies chest pain with activity and Denies pedal edema Resp Denies cough GI Denies abdominal pain Musc Denies abnormal gait, Denies muscle cramps and Denies radiating pain into limb Skin/Breast Denies skin ulcer and Denies wounds Neuro Reports Normal hearing present and Denies abnormal gait Psych Reports no additional complaints Physical Exam Vital Signs: Last Vital Signs BP 138/72 02/27/25 12:54 BMI result Body Mass Index 31.0 Const General: cooperative, healthy appearing and comfortable Orientation/consciousness: oriented to person, oriented to place and oriented to time HEENT Head: Yes normal to inspection Neck Neck: Yes normal visual inspection Carotids: no bruits Chest Chest palpation & inspection: normal inspection of the chest Resp Effort & Inspection: normal respiratory effort and able to speak in complete sentences Auscultation: clear to auscultation bilaterally, no crackles, no rales, no rhonchi and no wheezes Cardio Rate: regular rate Rhythm: regular rhythm Heart sounds: S1 normal heart sound present and S2 normal heart sound present Bruits: no carotid bruits Peripheral pulses: Peripheral pulses 2+ throughout GI Inspection: Yes normal to inspection Skin Wounds: no wounds Hair: normal Neuro General: oriented to person, oriented to place and oriented to time Cranial nerves: Yes CN's II-XII intact bilaterally and Yes Normal hearing present Cognition (Neuro): normal cognition Motor exam (neuro): 5/5 motor strength present throughout Extrem Other: venous exam: +2 edema bilateral lower extremity General: No clubbing, No cyanosis and Yes edema Psych Appearance: grossly normal Mental Status: mental status grossly normal Speech and movement: Normal speech and movement present Results Reviewed Results Reviewed: Carotid testing dated 01/25/2025 demonstrates bilateral 50-79% stenosis with a peak systolic on the right of 144 and on the left of 179. Assessment & Plan Assessment & Plan (1) Carotid stenosis, bilateral: Code(s): I65.23 - Occlusion and stenosis of bilateral carotid arteries Category: Medical Plan: In short patient has asymptomatic carotid disease. We have reviewed signs and symptoms of a stroke. We also discussed risk factor modification inclusive a healthy diet low in cholesterol. The patient will follow up with us with surveillance ultrasound of the carotids 1 year. Should there be any changes or signs or symptoms of a stroke we will be happy to see them back sooner. Thank you for allowing us to participate in this patient's care. If there are any questions or concerns please do not hesitate to contact us. (2) Lymphedema: Code(s): I89.0 - Lymphedema, not elsewhere classified Category: Medical Plan: The patient reports chronic swelling in the legs, managed with compression stockings and leg elevation. Lymphedema pumps have been used in the past but are difficult for the patient to use consistently. Continued use of compression pumps and leg elevation is recommended. Orders: Orders US carotid duplex BI 1 Year I65.23 - Occlusion and stenosis of bilateral carotid arteries Coding Level of Care Code Est Pt Level 4 (82781) Complex EM visit Add On G2211 Diagnoses Carotid stenosis, bilateral I65.23 Lymphedema I89.0
[2025-02-27 12:54] VITALS: BP 130/78; BP 138/72; BMI 31.0
--- OUTSIDE RECORDS SUMMARY | 2025-02-27 15:14 | XMS_ITS | Clinical Summary ---
Author Organization [facility] Address [address] [place], [place] [id number] Phone Care Team Providers Care Adult Day Care Worker Name Role Phone Unavailable Primary Care Provider [...] It is not the complete legal health record.[facility]
== END 2025-02-27 13:24 | disposition home or self-care (01) ==
LOC: HO.HVS 12:53
PROVIDERS: PCP Internal Medicine; Visit Provider Surgery Vascular Surgery
DX: I65.23 Occlusion and stenosis of bilateral carotid arteries (principal); I89.0 Lymphedema, not elsewhere classified
CPT/HCPCS: 99214; G2211

== ENCOUNTER → 2025-02-27 12:53 | Outpatient (BNVA) | payer MEDICARE, SELFPAY | PROVIDERS: PCP Internal Medicine; Visit Provider Surgery Vascular Surgery | DX: I65.23 Occlusion and stenosis of bilateral carotid arteries (principal); I89.0 Lymphedema, not elsewhere classified | CPT/HCPCS: 99212 ==

== ENCOUNTER 2025-03-06 08:10 | Outpatient (AMB) | payer MEDICARE, SELFPAY ==
[2025-03-06 08:15] LABS: Prothrombin Time Whole Bld POC 31.7 sec (11.1-13.5); ~PT, ~INR - Anti Coag Clinic 2.6 (0.9-1.1)
--- NOTE | 2025-03-06 08:20 | MHC.OFFVISCO ---
Intake Intake Visit Reasons: Anticoagulation Allergies No Known Allergies (No Known Allergies*) Allergy (Verified 03/06/25 08:10) Medication List - Last Reconciled 03/06/25 by Gillian Richmond RN aspirin 81 mg PO DAILY calcium carbonate-vitamin D3 500 mg-5 mcg (200 unit) (Oyster Shell Calcium-Vitamin D3) 1 tab PO BID 90 days carbamide peroxide 6.5% (Debrox) 5 drps otic (ear) right Q12H 4 days darifenacin ER 15 mg PO DAILY furosemide 20 mg PO DAILY levothyroxine 100 mcg PO DAILY mirabegron ER (Myrbetriq) 25 mg PO DAILY nystatin-triamcinolone 100,000-0.1 unit/g-% 1 appl topical DAILY polyethylene glycol 3350 (Miralax) 17 grams PO DAILY PRN sennosides (senna) 8.6 mg PO BID simvastatin 40 mg PO BEDTIME triamcinolone acetonide 0.1% 1 appl topical DAILY 14 days warfarin 2.5 mg See Protocol PO DAILY Nursing Note INR: 2.6 in therapeutic range of 2-3 Medications and supplements reviewed No changes in health, diet, medications, or supplements, Denies any signs and symptoms of bleeding or bruising or clotting. Bleeding, bruising, clotting discussed Nutritional guidance given Dose: 2.5mg X 6 days and 3.75mg X 1 day () F/U INR: 4 weeks Patient verbalizes understanding of instructions given Anti-Coag Initial Assessment Social Hx Patient Tobacco Use Status: Never used Tobacco alcohol intake: never Cardiovascular Hx: Varicose Veins Lung Disease HX: DVT/PE Endocrine Hx: Thyroid Disease Musculoskeletal Hx: Arthritis Blood Disorder Hx: Hyperlipidemia Hx: Kidney Disease, Bladder Disorders (overactive bladder) and Other (hx hematuria) Neurological Hx: Stroke/TIA Cancer HX: No Psych. 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
--- OUTSIDE RECORDS SUMMARY | 2025-03-06 09:20 | XMS_ITS | Clinical Summary ---
Author Organization [facility] Address [address] [place], [place] [id number] Phone Care Team Providers Care Hospice Fellow Name Role Phone Unavailable Primary Care Provider [...] It is not the complete legal health record.[facility]
== END 2025-03-06 08:22 | disposition home or self-care (01) ==
LOC: HO.ACS 08:10
PROVIDERS: PCP Internal Medicine; Visit Provider Internal Medicine Medical Oncology
DX: Z79.01 Long term (current) use of anticoagulants (principal)

== ENCOUNTER → 2025-03-06 08:10 | Outpatient (BNVA) | payer MEDICARE, SELFPAY | PROVIDERS: PCP Internal Medicine; Visit Provider Internal Medicine Medical Oncology | DX: Z86.73 Personal history of transient ischemic attack (TIA), and cerebral infarction without residual deficits (principal); Z86.718 Personal history of other venous thrombosis and embolism; Z79.01 Long term (current) use of anticoagulants; Z51.81 Encounter for therapeutic drug level monitoring | CPT/HCPCS: 85610; 99211 ==

== ENCOUNTER 2025-04-10 09:58 | Outpatient (AMB) | payer MEDICARE, SELFPAY ==
[2025-04-10 10:09] LABS: Prothrombin Time Whole Bld POC 24.3 sec (11.1-13.5); ~PT, ~INR - Anti Coag Clinic 2.0 (0.9-1.1)
--- NOTE | 2025-04-10 10:11 | MHC.OFFVISCO ---
Intake Intake Visit Reasons: Anticoagulation Allergies No Known Allergies (No Known Allergies*) Allergy (Verified 04/10/25 10:05) Medication List - Last Reconciled 04/10/25 by Gillian Richmond RN aspirin 81 mg PO DAILY calcium carbonate-vitamin D3 500 mg-5 mcg (200 unit) (Oyster Shell Calcium-Vitamin D3) 1 tab PO BID 90 days carbamide peroxide 6.5% (Debrox) 5 drps otic (ear) right Q12H 4 days darifenacin ER 15 mg PO DAILY furosemide 20 mg PO DAILY levothyroxine 100 mcg PO DAILY mirabegron ER (Myrbetriq) 25 mg PO DAILY nystatin-triamcinolone 100,000-0.1 unit/g-% 1 appl topical DAILY polyethylene glycol 3350 (Miralax) 17 grams PO DAILY PRN sennosides (senna) 8.6 mg PO BID simvastatin 40 mg PO BEDTIME triamcinolone acetonide 0.1% 1 appl topical DAILY 14 days warfarin 2.5 mg See Protocol PO DAILY Nursing Note INR: 2.0 in therapeutic range of 2-3 Medications and supplements reviewed No changes in health, diet, medications, or supplements, Denies any signs and symptoms of bleeding or bruising or clotting. Bleeding, bruising, clotting discussed Nutritional guidance given to avoid greens today and to have a serving of foods that raise the INR. Dose: 2.5mg X 6 days and 3.75mg X 1 day F/U INR: 4 weeks Patient verbalizes understanding of instructions given Anti-Coag Initial Assessment Social Hx Patient Tobacco Use Status: Never used Tobacco alcohol intake: never Cardiovascular Hx: Varicose Veins Lung Disease HX: DVT/PE Endocrine Hx: Thyroid Disease Musculoskeletal Hx: Arthritis Blood Disorder Hx: Hyperlipidemia Hx: Kidney Disease, Bladder Disorders (overactive bladder) and Other (hx hematuria) Neurological Hx: Stroke/TIA Cancer HX: No Psych. Illness/Depression: No Coding Level of Care Code Est Patient Level 1 Diagnoses Current use of anticoagulant therapy Z79.01 Assessment & Plan Assessment & Plan (1) Current use of anticoagulant therapy: Code(s): Z79.01 - joint terminal attack controller (current) use of anticoagulants Category: Medical
--- OUTSIDE RECORDS SUMMARY | 2025-04-10 11:30 | XMS_ITS | Clinical Summary ---
Author Organization [facility] Address [address] [place], [place] [id number] Phone Care Team Providers Care Wire Worker Name Role Phone Unavailable Primary Care [...] It is not the complete legal health record.[facility]
== END 2025-04-10 10:23 | disposition home or self-care (01) ==
LOC: HO.ACS 09:58
PROVIDERS: PCP Internal Medicine; Visit Provider Internal Medicine Medical Oncology
DX: Z79.01 Long term (current) use of anticoagulants (principal)

== ENCOUNTER → 2025-04-10 09:58 | Outpatient (BNVA) | payer MEDICARE, SELFPAY | PROVIDERS: PCP Internal Medicine; Visit Provider Internal Medicine Medical Oncology | DX: Z79.01 Long term (current) use of anticoagulants (principal) | CPT/HCPCS: 85610; 99211 ==

== ENCOUNTER 2025-04-16 08:58 | Outpatient (AMB) | payer MEDICARE, SELFPAY ==
[2025-04-16 09:11] VITALS: BP 126/74; PULSE 66; O2SAT 97; BMI 31.7
--- NOTE | 2025-04-16 09:11 | A.OFFPC_ITS ---
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 Accompanied by: Self / Same As Patient Allergies No Known Allergies (No Known Allergies*) Allergy (Verified 04/16/25 09:23) Medication List - Last Reconciled 04/16/25 by Susie Neal MD aspirin 81 mg PO DAILY calcium carbonate-vitamin D3 500 mg-5 mcg (200 unit) (Oyster Shell Calcium- Vitamin D3) 1 tab PO BID 90 days carbamide peroxide 6.5% (Debrox) 5 drps otic (ear) right Q12H 4 days darifenacin ER 15 mg PO DAILY furosemide 20 mg PO DAILY levothyroxine 100 mcg PO DAILY mirabegron ER (Myrbetriq) 25 mg PO DAILY nystatin-triamcinolone 100,000-0.1 unit/g-% 1 appl topical DAILY polyethylene glycol 3350 (Miralax) 17 grams PO DAILY PRN sennosides (senna) 8.6 mg PO BID simvastatin 40 mg PO BEDTIME triamcinolone acetonide 0.1% 1 appl topical DAILY 14 days warfarin 2.5 mg See Protocol PO DAILY Tobacco use date assessed: 04/16/25 Fall risk assessment: No Falls in past year Last assessed Fall Risk: 04/16/25 Dental Screening Dental Screen Date: 04/16/25 Did you have a dental visit in the last 12 months?: No Did you have a dental problem in the last 6 months where you did not have access to dental care?: No Was dental information given to patient?: No HPI HPI Comments History of Present Illness Details The patient is a 74-year-old female presenting for a physical exam. She has a history of bilateral carotid stenosis. Her diagnosis was made after experiencing multiple transient ischemic attacks and falls. She is followed by vascular surgery and recently had a carotid doppler that was reportedly normal. The patient has a history of overactive bladder and has had a bladder repair surgery in the past. She was taking Myrbetriq for urinary incontinence but discontinued it due to lack of efficacy and high cost; she does not currently take any medication for this issue. She continues to experience significant urinary frequency and incontinence, requiring the use of pads. The patient has chronic kidney disease, stage 3, with her last glomerular filtration rate (GFR) being 42 over a year ago. Her medical history is also significant for osteopenia, confirmed by a bone density scan this year, for which she takes calcium with vitamin D. She has bilateral knee osteoarthritis, described as bone to bone, which causes pain and limits her mobility, necessitating the use of a cane. She is not a candidate for knee surgery due to her other medical conditions. Current medications include aspirin 81 mg, calcium with vitamin D, darifenacin, furosemide, levothyroxine 100 mcg, MiraLAX as needed, Senna as needed, simvast atin 40 mg, and Coumadin. The patient has no known drug allergies. Regarding her family history, her mother had diabetes and her father had COPD. [facility] Medical History Ulcer of right lower extremity Encounter to establish care Hyperactivity of bladder Transient cerebral ischemia Hypothyroidism History of TIAs Surgical History Hx of bladder repair surgery Family History Mother Diabetes Father COPD (chronic obstructive pulmonary disease) Son Colon cancer, Onset Age: 38 Daughter Myocardial infarction Social History Household Members: None Housing: House Do you presently have visiting nurse or other home services: No Alcohol intake: never Patient Tobacco Use Status: Never used Tobacco e-Cigarette/Vaping Use: Never Used Second Hand Smoke Exposure: No service: No Current occupational status: retired 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 1. Little interest or pleasure in doing things: nearly every day 2. Feeling down, depressed, or hopeless: not at all 3. Trouble falling or staying asleep, or sleeping too much: not at all 4. Feeling tired or having little energy: not at all 5. Poor appetite or overeating: not at all 6. Feeling bad about yourself - or that you are a failure or have let yourself or your family down: not at all 7. Trouble concentrating on things, such as reading the newspaper or watching television: not at all 8. Moving or speaking so slowly that other people could have noticed. Or the opposite - being so fidgety or restless that you have been moving around a lot more than usual: not at all 9. Thoughts that you would be better off or of hurting yourself in some way: not at all Total score: 3 Depression Screening Interpretation: Negative Depression Screening Done: Yes 31646 - PHQ-9 Billing: Yes Source: Developed by Drs. Pelon Castillo, Cristina Ty, Calvin Licea and colleagues, with an educational suyapa from [employer]. Thrive Questionnaire Date Thrive assessed: 04/16/25 I am a: Patient What is your living situation today?: I have a steady place to live Within the past 12 months, did the food you bought not last and you didn't have the money to get more?: I choose not to answer this question Within the past 12 months, did you worry whether your food would run out before you got money to buy more?: Never true Do you have trouble paying for medicines?: No Do you have trouble getting transportation to medical appointments?: Yes Do you have trouble paying your heating and electricity bill?: No Do you have trouble taking care of your child, family member or friend?: I choose not to answer this question Do you have trouble with day-to-day activities such as bathing, preparing meals, shopping, managing finances, etc.?: I choose not to answer this question Are you currently unemployed and looking for a job?: No Are you interested in more education?: No Please select the resources that you would like help with: None THRIVE Score: 1 AUDIT C Alcohol Use Questionnaire (AUDIT-C) 1. How often do you have a drink containing alcohol?: Never 3. How often do you have six or more drinks on one occasion?: Never Total Score: 0 Score Reviewed/Action Taken: No CANDACE-7 AMB Questionnaire CANDACE-7 Date CANDACE - 7 assessed: 04/16/25 Feeling nervous, anxious, or on edge: 0 = Not at all Not being able to stop or control worryin = Not at all Worrying too much about different things: 0 = Not at all Trouble relaxin = Not at all Being so restless that it is hard to sit still: 0 = Not at all Becoming easily annoyed or irritable: 0 = Not at all Feeling afraid as if something awful might happen: 0 = Not at all Total CANDACE-7 score (0-4 normal; 5-9 mild; 10-14 moderate; 15-21 severe): 0 Source: Developed by Drs. Pelon Castillo, Cristina Ty, Calvin Licea and colleagues, with an educational suyapa from [employer]. CANDACE-7 Assessment Billing CANDACE-7 Assessment Tool: CANDACE-7 Assessment 22023 Review of Systems Const All systems reviewed & are unremarkable except as noted in HPI and below Card Denies chest pain at rest, Denies chest pain with activity, Denies edema, Denies irregular heart rhythm, Denies claudication, Denies dyspnea, Denies dyspnea on exertion, Denies orthopnea, Denies paroxysmal nocturnal dyspnea and Denies slow heart rate Resp Denies cough, Denies dyspnea and Denies dyspnea on exertion Physical exam (Primary Care) Vital Signs: Last Vital Signs Pulse 66 04/16/25 09:11 BP 126/74 04/16/25 09:11 Pulse Ox 97 04/16/25 09:11 Oxygen Delivery Method Room Air 04/16/25 09:11 BMI result Body Mass Index 31.7 BMI Assessment/Plan discussion: High BMI High, discussed plan: lifestyle, weight reduction, dietary and physical activity Tobacco/Smoking Status: Tobacco use Status Tobacco use date assessed 04/16/25 04/16/25 09:18 Patient Tobacco Use Status Never used Tobacco 04/16/25 09:18 e-Cigarette/Vaping Use Never Used 04/16/25 09:18 PHQ-9: PHQ-9 Score PHQ-9: Total score 3 04/16/25 09:27 Depression Screening Interpretation: Negative Thrive Assessment: Date of Thrive Assessment Date Thrive assessed 04/16/25 04/16/25 09:18 Const Limitations: ambulation with cane HENMT Head: Yes normal to inspection, Yes normocephalic and Yes atraumatic Ears: external ears normal Eyes General: appearance normal, both eyes and all related structures Eyelids: Yes eyelids normal Conjunctivae: conjunctivae normal Neck Neck: Yes normal visual inspection and Yes supple Resp Effort & Inspection: normal respiratory effort Auscultation: clear to auscultation bilaterally Cardio Jugular venous distension: no JVD Rate: regular rate Rhythm: regular rhythm Heart sounds: S1 normal heart sound present and S2 normal heart sound present GI Inspection: Yes normal to inspection Palpation (GI): Soft to palpation and nontender Auscultation: normal bowel sounds Skin General skin exam: no rashes or lesions noted Neuro General: no focal motor deficits Extrem General: Yes full ROM Psych Appearance: grossly normal Coding Level of Care Code Est Pt Level 3 (27120) Est Pt Prev Care >65y(19630) Diagnoses Adult general medical exam Z00.00 Stage 3a chronic kidney disease N18.31 Chronic kidney disease stage 3 subtype: stage 3a (GFR 45-59) Overactive bladder N32.81 Additional Codes CANDACE-7 Assessment Billing - CANDACE-7 Assessment Tool: CANDACE-7 Assessment 89805 ([id number]) PHQ-9 - 23304 - PHQ-9 Billing: Yes ([id number]) Time Spent (min) 33 Assessment & Plan Assessment & Plan (1) Adult general medical exam: Comment: Covid-19 IZ Manny x1. DEXA declined. PNA IZ declined. Code(s): Z00.00 - Encounter for general adult medical examination without abnormal find ings Category: Medical (2) CKD (chronic kidney disease) stage 3, GFR 30-59 ml/min: Code(s): N18.30 - Chronic kidney disease, stage 3 unspecified Category: Medical Qualifiers: Chronic kidney disease stage 3 subtype: stage 3a (GFR 45-59) Qualified Code(s): N18.31 - Chronic kidney disease, stage 3a (3) Overactive bladder: Code(s): N32.81 - Overactive bladder Category: Medical Plan Plan 1. Encounter for general adult medical examination without abnormal findings Z00.00 Declines vaccinations. Declines colonoscopy. Willing to try cologuard. I have sent cologuard twice already. 2. Unspecified urinary incontinence R32 The patient reports ongoing urinary incontinence and frequency despite a history of bladder surgery. She has discontinued Myrbetriq due to lack of efficacy and cost. A referral will be placed to a local urology practice for further evaluation and management. 3. Chronic kidney disease, stage 3 unspecified N18.30 HCC 138 The patient has a history of stage 3 chronic kidney disease, with the last labs over a year ago showing a GFR of 42. Fasting blood work will be ordered this week to reassess kidney function among other parameters. Orders: Orders Comprehensive [place]. Panel Fast Today I65.23 - Occlusion and stenosis of bilateral carotid arteries Thyroid Stimulating Hormone Today E03.9 - Hypothyroidism, unspecified Lipid Panel Today E78.5 - Hyperlipidemia, unspecified Referrals Cologuard Test Z12.11 - Encounter for screening for malignant neoplasm of colon, Z12.12 - Encounter for screening for malignant neoplasm of rectum Urology Referral N32.81 - Overactive bladder
== END 2025-04-16 09:43 | disposition home or self-care (01) ==
LOC: HO.HMCH 08:59
PROVIDERS: PCP Internal Medicine; Visit Provider Internal Medicine
DX: Z00.00 Encounter for general adult medical examination without abnormal findings (principal); N18.31 Chronic kidney disease, stage 3a; N32.81 Overactive bladder

== ENCOUNTER → 2025-04-16 08:58 | Outpatient (BNVA) | payer MEDICARE, SELFPAY | PROVIDERS: PCP Internal Medicine; Visit Provider Internal Medicine | DX: Z00.00 Encounter for general adult medical examination without abnormal findings (principal); R32 Unspecified urinary incontinence; N32.81 Overactive bladder; N18.31 Chronic kidney disease, stage 3a; Z79.899 Other long term (current) drug therapy | CPT/HCPCS: 96127; 99397 ==

== ENCOUNTER 2025-05-28 10:51 | Outpatient (AMB) | payer MEDICARE, SELFPAY ==
[2025-05-28 11:00] LABS: Prothrombin Time Whole Bld POC 15.0 sec (11.1-13.5); ~PT, ~INR - Anti Coag Clinic 1.3 (0.9-1.1)
--- NOTE | 2025-05-28 11:10 | MHC.OFFVISCO ---
Intake Intake Visit Reasons: Anticoagulation Allergies No Known Allergies (No Known Allergies*) Allergy (Verified 05/28/25 10:54) Medication List - Last Reconciled 05/28/25 by Vicenta Jung RN aspirin 81 mg PO DAILY calcium carbonate-vitamin D3 500 mg-5 mcg (200 unit) (Oyster Shell Calcium-Vitamin D3) 1 tab PO BID 90 days carbamide peroxide 6.5% (Debrox) 5 drps otic (ear) right Q12H 4 days furosemide 20 mg PO DAILY levothyroxine 100 mcg PO DAILY nystatin-triamcinolone 100,000-0.1 unit/g-% 1 appl topical DAILY polyethylene glycol 3350 (Miralax) 17 grams PO DAILY PRN sennosides (senna) 8.6 mg PO BID simvastatin 40 mg PO BEDTIME triamcinolone acetonide 0.1% 1 appl topical DAILY 14 days warfarin 2.5 mg See Protocol PO DAILY Nursing Note INR: 1.3 out of therapeutic range 2.0- 3.0 - missed a few doses over Thanksgiving Medications and supplements reviewed- stopped bladder control meds none were working No changes in health, diet, or supplements, Denies any signs and symptoms of bleeding or bruising or clotting. Pt enc to stay hydrated today and perform ankle pumps for circulation- pt stated she will wear her compression stockings Bleeding, bruising, clotting discussed - she will go to ER with and DVT of CVA symptoms Nutritional guidance given - stay hydrated, avoid greens, eat orange and reds to help raise the INR Dose: 5mg today then resume 3.75mg/ 2.5mg x 6 days F/U INR: this week 06/01/25 Patient verbalizes understanding of instructions given This note will be forwarded to her PCP with a f/u call Anti-Coag Initial Assessment Social Hx Patient Tobacco Use Status: Never used Tobacco alcohol intake: never Cardiovascular Hx: Varicose Veins Lung Disease HX: DVT/PE Endocrine Hx: Thyroid Disease Musculoskeletal Hx: Arthritis Blood Disorder Hx: Hyperlipidemia Hx: Kidney Disease, Bladder Disorders (overactive bladder) and Other (hx hematuria) Neurological Hx: Stroke/TIA Cancer HX: No Psych. Illness/Depression: No Questionnaires HAS-BLED Does the patient had uncontrolled Hypertension?: No Does the patient have renal disease?: Yes Does the patient have liver disease?: No Does the patient have a history of stroke?: Yes Has the patient had major bleeding or predisposition to bleeding?: Yes Does the patient have labile INRs?: Yes Is the patient over 65 years of age?: Yes Is the patient on medications that gives them a predisposition to bleeding?: Yes Does the patient use alcohol?: No HAS-BLED Score: 6 CHADSVASC Age: 66-74 Gender: Female Does the patient have a history of CHF?: No Does the patient have a history of Hypertension?: No Does the patient have a history of Stroke/TIA/Thromboembolism?: Yes Does the patient have a history of Vascular Disease (prior WI, PAD or aortic plaque)?: Yes Does the patient have a history of Diabetes?: No CHADS VACS Score: 5 Aury Prediction Score Rsk VTE Active Cancer: No Previous VTE, excluding superficial vein thrombosis: Yes Reduced mobility: Yes Already known Thrombophilic Condition: No With-in last month Trauma and/or Surgery: No Elderly 70 year or older: Yes Heart and/or Respiratory Failure: No Acute Myocardial infarction and/or Ischemic Stroke: No Acute Infection and/or Rheumatologic Disorder: Yes (arthritis ) Obesity (BMI 30 or greater): No Ongoing Hormonal Treatment: No Score: 8 Aury Score less than 4; Low Risk of VTE Aury Score 4 or greater; High Risk of VTE Coding Level of Care Code Est Patient Level 1 Diagnoses Current use of anticoagulant therapy Z79.01 Assessment & Plan Assessment & Plan (1) Current use of anticoagulant therapy: Code(s): Z79.01 - custodial (current) use of anticoagulants Category: Medical
== END 2025-05-28 11:25 | disposition home or self-care (01) ==
LOC: HO.ACS 10:51
PROVIDERS: PCP Internal Medicine; Visit Provider Internal Medicine Medical Oncology
DX: Z79.01 Long term (current) use of anticoagulants (principal)

== ENCOUNTER → 2025-05-28 10:51 | Outpatient (BNVA) | payer MEDICARE, SELFPAY | PROVIDERS: PCP Internal Medicine; Visit Provider Internal Medicine Medical Oncology | DX: Z86.718 Personal history of other venous thrombosis and embolism (principal); Z86.73 Personal history of transient ischemic attack (TIA), and cerebral infarction without residual deficits; Z51.81 Encounter for therapeutic drug level monitoring; Z79.01 Long term (current) use of anticoagulants | CPT/HCPCS: 85610; 99211 ==

== ENCOUNTER 2025-06-01 11:02 | Outpatient (AMB) | payer MEDICARE, SELFPAY ==
--- NOTE | 2025-06-01 11:25 | MHC.OFFVISCO ---
Intake Intake Visit Reasons: Anticoagulation Allergies No Known Allergies (No Known Allergies*) Allergy (Verified 06/01/25 11:08) Medication List - Last Reconciled 06/01/25 by Vicenta Jung RN aspirin 81 mg PO DAILY calcium carbonate-vitamin D3 500 mg-5 mcg (200 unit) (Oyster Shell Calcium-Vitamin D3) 1 tab PO BID 90 days carbamide peroxide 6.5% (Debrox) 5 drps otic (ear) right Q12H 4 days furosemide 20 mg PO DAILY levothyroxine 100 mcg PO DAILY nystatin-triamcinolone 100,000-0.1 unit/g-% 1 appl topical DAILY polyethylene glycol 3350 (Miralax) 17 grams PO DAILY PRN sennosides (senna) 8.6 mg PO BID simvastatin 40 mg PO BEDTIME triamcinolone acetonide 0.1% 1 appl topical DAILY 14 days warfarin 2.5 mg See Protocol PO DAILY Nursing Note INR: 1.6 out of therapeutic range- improved from 05/28/25 1.3 she missed a dose plus was under a lot of stress She reports she notices her INR is lower when she is under stress. Medications and supplements reviewed No changes in health, diet, medications, or supplements, Denies any signs and symptoms of bleeding or bruising or clotting. Bleeding, bruising, clotting discussed Nutritional guidance given Dose: she had a booster dose wednesday and will booster dose again today to 5mg ( total 5mg boost for the week) she will resume usual dose 3.75mg x 1 day/ 2.5mg x 6 days next week F/U INR: 1 week then 1 -2 weeks until she remains stable Patient verbalizes understanding of instructions given Anti-Coag Initial Assessment Social Hx Patient Tobacco Use Status: Never used Tobacco alcohol intake: never Cardiovascular Hx: Varicose Veins Lung Disease HX: DVT/PE Endocrine Hx: Thyroid Disease Musculoskeletal Hx: Arthritis Blood Disorder Hx: Hyperlipidemia Hx: Kidney Disease, Bladder Disorders (overactive bladder) and Other (hx hematuria) Neurological Hx: Stroke/TIA Cancer HX: No Psych. Illness/Depression: No Coding Level of Care Code Est Patient Level 1 Diagnoses Current use of anticoagulant therapy Z79.01 Results AMB INR Fingerstick AMB INR Fingerstick 1.6 Last Edit by Vicenta Jung RN on 06/01/25 11:14 Assessment & Plan Assessment & Plan (1) Current use of anticoagulant therapy: Code(s): Z79.01 - [facility] (current) use of anticoagulants Category: Medical
[2025-06-02 09:15] LABS: Prothrombin Time Whole Bld POC 19.2 sec (11.1-13.5); ~PT, ~INR - Anti Coag Clinic 1.6 (0.9-1.1)
== END 2025-06-01 11:29 | disposition home or self-care (01) ==
LOC: HO.ACS 11:02
PROVIDERS: PCP Internal Medicine; Visit Provider Internal Medicine Medical Oncology
DX: Z79.01 Long term (current) use of anticoagulants (principal)

== ENCOUNTER → 2025-06-01 11:02 | Outpatient (BNVA) | payer MEDICARE, SELFPAY | PROVIDERS: PCP Internal Medicine; Visit Provider Internal Medicine Medical Oncology | DX: Z86.73 Personal history of transient ischemic attack (TIA), and cerebral infarction without residual deficits (principal); Z86.718 Personal history of other venous thrombosis and embolism; Z51.81 Encounter for therapeutic drug level monitoring; Z79.01 Long term (current) use of anticoagulants | CPT/HCPCS: 85610; 99211 ==

== ENCOUNTER 2025-06-11 11:06 | Outpatient (AMB) | payer MEDICARE, SELFPAY ==
[2025-06-11 11:11] LABS: Prothrombin Time Whole Bld POC 38.4 sec (11.1-13.5); ~PT, ~INR - Anti Coag Clinic 3.2 (0.9-1.1)
--- NOTE | 2025-06-11 11:22 | MHC.OFFVISCO ---
Intake Intake Visit Reasons: Anticoagulation Allergies No Known Allergies (No Known Allergies*) Allergy (Verified 06/11/25 11:06) Medication List - Last Reconciled 06/11/25 by Gillian Richmond RN aspirin 81 mg PO DAILY calcium carbonate-vitamin D3 500 mg-5 mcg (200 unit) (Oyster Shell Calcium-Vitamin D3) 1 tab PO BID 90 days carbamide peroxide 6.5% (Debrox) 5 drps otic (ear) right Q12H 4 days furosemide 20 mg PO DAILY levothyroxine 100 mcg PO DAILY nystatin-triamcinolone 100,000-0.1 unit/g-% 1 appl topical DAILY polyethylene glycol 3350 (Miralax) 17 grams PO DAILY PRN sennosides (senna) 8.6 mg PO BID simvastatin 40 mg PO BEDTIME triamcinolone acetonide 0.1% 1 appl topical DAILY 14 days warfarin 2.5 mg See Protocol PO DAILY Nursing Note INR: 3.2 out of therapeutic range of 2-3 Medications and supplements reviewed Patient status: no changes Medications or supplements: no changes Diet: same Denies any signs and symptoms of bleeding or clotting or unusual bruising Bleeding, bruising, clotting discussed Nutritional guidance given: to have a serving of greens today Dose: 2.5mg X 6 days and 3.75mg X 1 day () F/U INR Date: 3 weeks?? Patient verbalizing understanding of instructions given. Anti-Coag Initial Assessment Social Hx Patient Tobacco Use Status: Never used Tobacco alcohol intake: never Cardiovascular Hx: Varicose Veins Lung Disease HX: DVT/PE Endocrine Hx: Thyroid Disease Musculoskeletal Hx: Arthritis Blood Disorder Hx: Hyperlipidemia Hx: Kidney Disease, Bladder Disorders (overactive bladder) and Other (hx hematuria) Neurological Hx: Stroke/TIA Cancer HX: No Psych. 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
--- OUTSIDE RECORDS SUMMARY | 2025-06-11 14:02 | XMS_ITS | Clinical Summary ---
Author Organization [facility] Address [address] [place], [place] [id number] Phone Care Team Providers Care [employer] Team Member Name Role Phone Unavailable Primary Care Provider [...] is not the complete legal health record.[facility]
== END 2025-06-11 11:29 | disposition home or self-care (01) ==
LOC: HO.ACS 11:06
PROVIDERS: PCP Internal Medicine; Visit Provider Internal Medicine Medical Oncology
DX: Z79.01 Long term (current) use of anticoagulants (principal)

== ENCOUNTER → 2025-06-11 11:06 | Outpatient (BNVA) | payer MEDICARE, SELFPAY | PROVIDERS: PCP Internal Medicine; Visit Provider Internal Medicine Medical Oncology | DX: Z86.73 Personal history of transient ischemic attack (TIA), and cerebral infarction without residual deficits (principal); Z86.718 Personal history of other venous thrombosis and embolism; Z79.01 Long term (current) use of anticoagulants; Z51.81 Encounter for therapeutic drug level monitoring | CPT/HCPCS: 85610; 99211 ==